=== PATIENT | male | born 1965 | race Caucasian/White ===

== ENCOUNTER 2017-12-06 14:27 | Emergency (ER) | payer BC ==
--- NOTE | 2017-12-06 14:58 | EDPHYS ---
Physician Documentation [facility] Name: Humphrey Dalton Age: 52 yrs Sex: Male : 1965 Arrival Date: 12/06/2017 Time: 14:29 Bed 12 Private MD: Uriel Rogers E ED Physician Zack Colón HPI: 12/06 14:57 This 52 yrs old Male presents to ER via Ambulatory with complaints of Low kb Back Pain. 14:57 The patient presents with pain that is acute. The symptoms are located in the lumbar kb spine. The pain does not radiate. The problem was sustained when bending over. Onset: The symptoms/episode began/occurred this morning. Modifying factors: The patient symptoms are alleviated by nothing, the patient symptoms are aggravated by any movement. Associated signs and symptoms: The patient has no apparent associated signs or symptoms. Severity of symptoms: At their worst the symptoms were mild, moderate, in the emergency department the symptoms are unchanged. The patient has not experienced similar symptoms in the past. The patient has not recently seen a physician. 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 - Social history:: Smoking status: . - Ebola Screening: : Patient negative for fever greater than or equal to 101.5 degrees Fahrenheit, and additional compatible Ebola Virus Disease symptoms Patient denies exposure to infectious person Patient denies travel to an Ebola-affected area in the 21 days before illness onset No symptoms or risks identified at this time. ROS: 14:57 Constitutional: Negative for fever, chills, and weight loss, Cardiovascular: Negative kb for chest pain, palpitations, and edema, Respiratory: Negative for shortness of breath, cough, wheezing, and pleuritic chest pain, Abdomen/GI: Negative for abdominal pain, nausea, vomiting, diarrhea, and constipation, : Negative for injury, bleeding, discharge, and swelling, MS/Extremity: Negative for injury and deformity, Skin: Negative for injury, rash, and discoloration, Neuro: Negative for headache, weakness, numbness, tingling, and seizure. 14:57 Back: Positive for pain at rest, pain with movement, of the lumbar area. Exam: 14:57 Constitutional: This is a well developed, well nourished patient who is awake, alert, kb and in no acute distress. Head/Face: Normocephalic, atraumatic. Chest/axilla: Normal chest wall appearance and motion. Nontender with no deformity. No lesions are appreciated. Cardiovascular: Regular rate and rhythm with a normal S1 and S2. No gallops, murmurs, or rubs. Normal PMI, no JVD. No pulse deficits. Respiratory: Lungs have equal breath sounds bilaterally, clear to auscultation and percussion. No rales, rhonchi or wheezes noted. No increased work of breathing, no retractions or nasal flaring. Abdomen/GI: Soft, non-tender, with normal bowel sounds. No distension or tympany. No guarding or rebound. No evidence of tenderness throughout. Back: No spinal tenderness. No costovertebral tenderness. Full range of motion. Skin: Warm, dry with normal turgor. Normal color with no rashes, no lesions, and no evidence of cellulitis. MS/ Extremity: Pulses equal, no cyanosis. Neurovascular intact. Full, normal range of motion. Neuro: Awake and alert, GCS 15, oriented to person, place, time, and situation. Cranial nerves II-XII grossly intact. Motor strength 5/5 in all extremities. Sensory grossly intact. Cerebellar exam normal. Normal gait. Vital Signs: 14:34 BP 153 / 100; Pulse 89; Resp 16; Temp 97.7; Pulse Ox 100% on R/A; Weight 83.91 kg (R); iw Height 6 ft. 0 in. (182.88 cm) (R); Pain 6/10; 14:34 Body Mass Index 25.09 (83.91 kg, 182.88 cm) iw MDM: 14:43 Patient medically screened. kb 14:56 Data reviewed: vital signs, nurses notes. Data interpreted: Pulse oximetry: on room air kb is 100 %. Interpretation: normal. Counseling: I had a detailed discussion with the patient and/or guardian regarding: the historical points, exam findings, and any diagnostic results supporting the discharge/admit diagnosis, the need for outpatient follow up, a family practitioner, to return to the emergency department if symptoms worsen or persist or if there are any questions or concerns that arise at home. Administered Medications: No medications were administered Disposition: 12/07 07:20 Co-signature as Attending Physician, Zack Colón MD I agree with the assessment and edmund plan of care. Disposition: 12/06/17 14:58 Discharged to Home. Impression: Low back pain. - Condition is Stable. - Discharge Instructions: Back Pain, Adult, [id number]. - Prescriptions for Diclofenac Sodium 75 mg Oral Tablet, Delayed Release (E.C.) - take 1 tablet by ORAL route 2 times per day As needed; 30 tablet. orphenadrine citrate 100 mg Oral Tablet Sustained Release - take 1 tablet by ORAL route 2 times per day As needed; 20 tablet. - Medication Reconciliation Form, Thank You Letter, Antibiotic Education, Prescription Opioid Use, Work release form form. - Follow up: Emergency Department; When: As needed; Reason: Worsening of condition. Follow up: Private Physician; When: 2 - 3 days; Reason: Recheck today's complaints, Continuance of care, Re-evaluation by your physician. Signatures: Klarissa Brady, BRIGHT AYALA-Ervin Almaraz RN RN sg Anderson, Corey, MD MD cha Williams, Irene, RN RN iw Corrections: (The following items were deleted from the chart) 12/06 15:11 14:58 12/06/2017 14:58 Discharged to Home. Impression: Low back pain. Condition is iw Stable. Forms are Medication Reconciliation Form, Thank You Letter, Antibiotic Education, Prescription Opioid Use. Follow up: Emergency Department; When: As needed; Reason: Worsening of condition. Follow up: Private Physician; When: 2 - 3 days; Reason: Recheck today's complaints, Continuance of care, Re-evaluation by your physician. kb
--- NOTE | 2017-12-06 14:58 | ER ---
Nurse's Notes [facility] Name: Humphrey Dalton Age: 52 yrs Sex: Male : 1965 Arrival Date: 12/06/2017 Time: 14:29 Bed 12 Private MD: Uriel Rogers E Diagnosis: Low back pain Presentation: 12/06 14:33 Presenting complaint: Patient states: was in a crouching position, when I stood up i iw felt a pinch in my back and something isnt right. hurts with walking and bending. Transition of care: patient was not received from another setting of care. Onset of symptoms was December 06, 2017. Risk Assessment: Do you want to hurt yourself or someone else? Patient reports no desire to harm self or others. Initial Sepsis Screen: Does the patient meet any 2 criteria? No. Patient's initial sepsis screen is negative. Does the patient have a suspected source of infection? No. Patient's initial sepsis screen is negative. Care prior to arrival: None. 14:33 Method Of Arrival: Ambulatory iw 14:33 Acuity: TATIANA 4 iw Triage Assessment: 15:01 General: Behavior is calm, cooperative. 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 - Social history:: Smoking status: . - Ebola Screening: : Patient negative for fever greater than or equal to 101.5 degrees Fahrenheit, and additional compatible Ebola Virus Disease symptoms Patient denies exposure to infectious person Patient denies travel to an Ebola-affected area in the 21 days before illness onset No symptoms or risks identified at this time. Screenin:01 Abuse screen: Denies threats or abuse. Denies injuries from another. Nutritional iw screening: No deficits noted. Tuberculosis screening: No symptoms or risk factors identified. Fall Risk None identified. Assessment: 14:57 General: Appears in no apparent distress. iw 15:00 Pain: Complains of pain in lumbar spine and lumbar area. Neuro: Level of Consciousness iw is awake, alert, obeys commands, Oriented to person, place, time, situation, Moves all extremities. Full function. Cardiovascular: Patient's skin is warm and dry. Respiratory: Respiratory effort is even, unlabored, Respiratory pattern is regular, symmetrical. Derm: Skin is intact, is healthy with good turgor. Musculoskeletal: Range of motion: intact in all extremities, Reports pain in lumbar spine and lumbar area. Vital Signs: 14:34 BP 153 / 100; Pulse 89; Resp 16; Temp 97.7; Pulse Ox 100% on R/A; Weight 83.91 kg (R); iw Height 6 ft. 0 in. (182.88 cm) (R); Pain 6/10; 14:34 Body Mass Index 25.09 (83.91 kg, 182.88 cm) iw ED Course: 14:29 Patient arrived in ED. sb2 14:29 Uriel Rogers MD is Private Physician. sb2 14:34 Triage completed. iw 14:34 Arm band placed on. iw 14:43 Klarissa Brady FNP-C is PHCP. kb 14:43 Zack Colón MD is Attending Physician. kb 14:47 Ledy Lucas, RN is Primary Nurse. iw 15:01 No provider procedures requiring assistance completed. iw 15:02 Patient has correct armband on for positive identification. iw 15:02 Patient did not have IV access during this emergency room visit. iw Administered Medications: No medications were administered Outcome: 14:58 Discharge ordered by MD. kb 15:01 Discharged to home iw 15:02 Condition: good iw 15:02 Discharge instructions given to patient, Instructed on discharge instructions, follow up and referral plans. medication usage, Demonstrated understanding of instructions, follow-up care, medications. 15:02 Prescriptions given X 2. iw 15:11 Patient left the ED. iw Signatures: Klarissa Brady FNP-C FNP-Ckb Gay, Steven, RN RN Ledy Lucas, RN RN Lianne Cruz sb2
== END 2017-12-06 15:11 | disposition home or self-care (01) ==
LOC: ER 14:27
DX: M54.5 Low back pain (principal); Z88.1 Allergy status to other antibiotic agents; Z88.6 Allergy status to analgesic agent
CPT/HCPCS: 99282

== ENCOUNTER 2017-12-29 03:34 | Emergency (ER) | payer BC ==
[2017-12-29] MEDS ORDERED: NA CHLORIDE 0.9% 1,000 ML ONE (04:14)
[2017-12-29 04:56] LABS: Absolute Monocytes 0.7 K/uL (0.1-1.3); Absolute Neutrophil 8.3 K/uL (1.8-8.0); Basophils % 0.2 % (0-1.3); Eosinophils % 4.9 % (0-4.4); Hematocrit 43.6 % (39.6-49.0); Lymphocytes % 9.9 % (15.3-44.8); MCH 30.7 pg (27.0-35.0); MCV 88.7 fL (80-100); MPV 8.2 fL (7.6-11.3); Monocytes % 6.8 % (3.3-12.3); RBC Red Blood Cell Count 4.92 M/uL (4.33-5.43)
[2017-12-29 05:38] LABS: BUN Blood Urea Nitrogen 12 mg/dL (7-18); Bicarbonate 25 mmol/L (21-32); Creatine Phosphokinase 125 U/L (39-308); Glucose Level 139 mg/dL (74-106); Magnesium 2.5 mg/dL (1.8-2.4); Potassium 3.5 mmol/L (3.5-5.1); Sodium Level 140 mmol/L (136-145); Troponin (Emerg Dept Use Only) < 0.02 ng/mL (0.0-0.045)
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
--- NOTE | 2017-12-29 05:53 | ER ---
Nurse's Notes [facility] Name: Humphrey Dalton Age: 52 yrs Sex: Male : 1965 Arrival Date: 12/29/2017 Time: 03:38 Bed 15 Private MD: Clyde Salcedo Diagnosis: Near Syncope Presentation: 12/29 03:50 Presenting complaint: Patient states: "I was at a friend's house and I got dizzy all of tl2 a sudden and felt like I was going to pass out but didn't. I was worried because I had a brain injury in 2016" Reports episode occurred at 0030. Transition of care: patient was not received from another setting of care. Onset of symptoms was December 29, 2017 at 00:30. Risk Assessment: Do you want to hurt yourself or someone else? Patient reports no desire to harm self or others. Initial Sepsis Screen: Does the patient meet any 2 criteria? No. Patient's initial sepsis screen is negative. Does the patient have a suspected source of infection? No. Patient's initial sepsis screen is negative. Care prior to arrival: None. 03:50 Method Of Arrival: Ambulatory tl2 03:50 Acuity: TATIANA 3 tl2 Triage Assessment: 03:52 General: Appears in no apparent distress. comfortable, Behavior is calm, cooperative, tl2 appropriate for age. Pain: Denies pain. Neuro: Level of Consciousness is awake, alert, obeys commands, Oriented to person, place, time, situation, Reports dizziness, weakness These symptoms have resolved. Initially occurred at 0030. Cardiovascular: Denies chest pain. Respiratory: Airway is patent Respiratory effort is even, unlabored, Respiratory pattern is regular, symmetrical. GI: No signs and/or symptoms were reported involving the gastrointestinal system. : No signs and/or symptoms were reported regarding the genitourinary system. Derm: Skin is pink, warm \\T\\ dry. 03:54 Neuro: Moves all extremities. Gait is steady, Speech is normal, Facial symmetry appears tl2 normal, Intact. Historical: - Allergies: 03:52 Amoxicillin; tl2 03:52 Hydrocodone-Acetaminophen; tl2 - Home Meds: 03:52 gabapentin oral oral [Active]; tl2 - PMHx: 03:52 ulnar pince nerve; TBI 2015; tl2 - Immunization history:: Adult Immunizations up to date. - Social history:: Smoking status: Patient/guardian denies using tobacco. - Ebola Screening: : No symptoms or risks identified at this time. - Family history:: not pertinent. - Hospitalizations: : No recent hospitalization is reported. Screenin:55 Abuse screen: Denies threats or abuse. Nutritional screening: No deficits noted. tl2 Tuberculosis screening: No symptoms or risk factors identified. Fall Risk None identified. Assessment: 03:52 General: see triage assessment. tl2 05:10 Reassessment: Patient appears in no apparent distress at this time. Patient and/or tl2 family updated on plan of care and expected duration. Pain level reassessed. Patient is alert, oriented x 3, equal unlabored respirations, skin warm/dry/pink. 06:41 Reassessment: Patient appears in no apparent distress at this time. Patient and/or tl2 family updated on plan of care and expected duration. Pain level reassessed. Patient is alert, oriented x 3, equal unlabored respirations, skin warm/dry/pink. pt verbalized understanding of discharge instructions, need for follow up Patient states feeling better. Vital Signs: 03:52 BP 132 / 85; Pulse 80; Resp 18; Temp 97.6(O); Pulse Ox 99% on R/A; Weight 83.91 kg; tl2 Height 6 ft. 0 in. (182.88 cm); Pain 0/10; 05:10 BP 102 / 72; Pulse 63; Resp 18; Pulse Ox 100% on R/A; tl2 06:41 BP 102 / 72; Pulse 67; Resp 18; Pulse Ox 100% on R/A; tl2 03:52 Body Mass Index 25.09 (83.91 kg, 182.88 cm) tl2 ED Course: 03:38 Patient arrived in ED. es 03:39 Clyde Salcedo MD is Private Physician. es 03:42 Matthew Velazquez MD is Attending Physician. rn 03:50 Lori Stapleton RN is Primary Nurse. tl2 03:51 Triage completed. tl2 03:52 Arm band placed on right wrist. tl2 03:55 Patient has correct armband on for positive identification. Bed in low position. Call tl2 light in reach. Side rails up X 1. Adult w/ patient. 04:06 Inserted saline lock: 20 gauge in right wrist, using aseptic technique. Blood collected.tl2 04:[address] via wheelchair. kw1 04:22 CT Head Brain wo Cont In Process Unspecified. EDMS 04:24 CT completed. Patient tolerated procedure well. Patient moved back from CT. kw1 05:52 Clyde Salcedo MD is Referral Physician. rn 06:41 No provider procedures requiring assistance completed. IV discontinued, intact, tl2 bleeding controlled, No redness/swelling at site. Pressure dressing applied. Administered Medications: 04:10 Drug: NS 0.9% 1000 ml Route: IV; Rate: 1000 ml; Site: right wrist; tl2 06:42 Follow up: IV Status: Completed infusion; IV Intake: 1000ml tl2 Intake: 06:42 IV: 1000ml; Total: 1000ml. tl2 Outcome: 05:52 Discharge ordered by . rn 06:41 Discharged to home ambulatory, with family. tl2 06:41 Condition: stable 06:41 Discharge instructions given to patient, Instructed on discharge instructions, follow up and referral plans. Demonstrated understanding of instructions, follow-up care. 06:42 Patient left the ED. tl2 Signatures: Dispatcher [employer] Dorys Barnhart Roman, MD MD rn Knox, Taylor, RN RN tl2 Dayana Zhao kw1
--- NOTE | 2017-12-29 08:37 | EKG ---
Test Date: 2017-12-29 Test Time: 04:07:15 Turf Keeper: LUCAS MEASUREMENT RESULTS: Intervals: Rate: 66 WI: 166 QRSD: 88 QT: 410 QTc: 429 [place]: P: 48 WI: 166 QRS: 33 T: 16 INTERPRETIVE STATEMENTS: Normal sinus rhythm RSR' or QR pattern in V1 suggests right ventricular conduction delay Borderline ECG Compared to ECG 11/19/2015 19:50:51 Myocardial infarct finding no longer present Electronically Signed On 12-29-17 08:36:41 CDT by Geovani Willis
--- NOTE | 2017-12-29 08:56 | RAD REPORT ---
EXAM DESCRIPTION: CT - Head Brain Wo Cont - 12/29/2017 6:57 am CLINICAL HISTORY: Syncope COMPARISON: October 2017 TECHNIQUE: Computed axial tomography of the head was obtained. IV contrast was not requested. A prel iminary report was generated by [employer] and reviewed prior to dictation All CT scans are performed using dose optimization technique as appropriate and may include automated exposure control or mA/KV adjustment according to patient size. FINDINGS: An intracranial bleed is not seen . The ventricles are normal in caliber. No extra-axial fluid collection is noted. Fluid within the sinuses/ mastoids is not seen. IMPRESSION: No acute intracranial abnormality is seen. If patient's symptoms persist MRI of the bra in would be recommended.
== END 2017-12-29 06:42 | disposition home or self-care (01) ==
LOC: ER 03:34
DX: R55 Syncope and collapse (principal); Z87.820 Personal history of traumatic brain injury; Z88.1 Allergy status to other antibiotic agents; Z88.5 Allergy status to narcotic agent
CPT/HCPCS: 36415; 70450; 80048; 82550; 83735; 84484; 85025; 93005; 96360; 96361; 99284; J7030

== ENCOUNTER 2020-06-08 18:45 | Emergency (ER) | payer BC ==
[2020-06-08 20:13] LABS: Absolute Lymphocytes (CBC) 1.4 K/uL (0.7-4.9); Basophils % 0.2 % (0-1.3); Hematocrit 44.7 % (39.6-49.0); Lymphocytes % 9.3 % (15.3-44.8); MPV 7.8 fL (7.6-11.3); RBC Red Blood Cell Count 5.11 M/uL (4.33-5.43)
[2020-06-08 20:17] LABS: Protime INR 0.97
[2020-06-08 20:28] LABS: ALT/SGPT 38 U/L (12-78); AST/SGOT 16 U/L (15-37); Albumin 4.1 g/dL (3.4-5.0); Alkaline Phosphatase 62 U/L (45-117); BUN Blood Urea Nitrogen 11 mg/dL (7-18); Bicarbonate 24 mmol/L (21-32); Bilirubin Direct < 0.1 mg/dL (0-0.2); Bilirubin Total 0.3 mg/dL (0.2-1.0); Glucose Level 93 mg/dL (74-106); Potassium 3.6 mmol/L (3.5-5.1); Sodium Level 138 mmol/L (136-145)
[2020-06-08 20:45] LABS: Barbiturates NEGATIVE (NEGATIVE); Benzodiazepines NEGATIVE (NEGATIVE); Cocaine NEGATIVE (NEGATIVE); METHAMPHETAM NEGATIVE (NEGATIVE); Methadone NEGATIVE (NEGATIVE); Opiates NEGATIVE (NEGATIVE); Phencyclidine NEGATIVE (NEGATIVE); THC Cannibis NEGATIVE (NEGATIVE)
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
--- NOTE | 2020-06-08 21:25 | RAD REPORT ---
EXAM DESCRIPTION: RAD - Humerus Right - 06/08/2020 9:06 pm CLINICAL HISTORY: trauma COMPARISON: No comparisons FINDINGS: No acute fracture or dislocation seen.
--- NOTE | 2020-06-08 21:25 | RAD REPORT ---
EXAM DESCRIPTION: RAD - Shoulder Right 2 View - 06/08/2020 9:06 pm CLINICAL HISTORY: trauma COMPARISON: No comparisons FINDINGS: No fracture or dislocation is seen.
[2020-06-08] MEDS ORDERED: NA CHLORIDE 0.9% 1,000 ML ONE (21:26)
[2020-06-08 22:01] LABS: Troponin (Emerg Dept Use Only) < 0.02 ng/mL (0.0-0.045)
[2020-06-08 22:05] LABS: Urine Blood 1+ (NEG); Urine Glucose NEGATIVE (NEG); Urine Protein 1+ (NEG); Urine Specific Gravity >1.030 (1.005-1.030)
--- NOTE | 2020-06-08 22:28 | EDPHYS ---
Physician Documentation [facility] Name: Humphrey Dalton Age: 55 yrs Sex: Male : 1965 Arrival Date: 06/08/2020 Time: 18:48 Bed 20 Private MD: ED Physician Garry Mendes HPI: 06/08 20:15 This 55 yrs old Male presents to ER via EMS with complaints of Seizure. mh7 20:15 The patient presents after having a single isolated seizure, that lasted 3 minute(s), mh7 the episode(s) was witnessed, by a bystander. Character of seizure(s): Loss of consciousness: it is not known if the patient experienced loss of consciousness, Motor activity: the motor activity is unknown, Incontinence: none, Apnea: it is not know whether or not the patient experienced apnea, Circulation: it is unknown whether or not the patient experienced a disturbance in pulse, Eye movements: are unknown. Seizure onset: today. Context: the seizure(s) was witnessed, by a bystander, occurred at a store, occurred while the patient was standing, Contributing factors: unknown. Seizure Hx: Original onset: unknown. Associated injury: Right upper extremity: right shoulder, pain. Current symptoms: confusion. Historical: - Allergies: 18:45 Amoxicillin; rb3 18:45 Hydrocodone-Acetaminophen; rb3 - Home Meds: 18:45 gabapentin Oral [Active]; rb3 - PMHx: 18:45 TBI 2016; ulnar pince nerve; Seizures; rb3 - Immunization history:: Adult Immunizations unknown. - Social history:: Smoking status: unknown. ROS: 20:15 Constitutional: Negative for fever, chills, and weight loss, ENT: Negative for injury, mh7 pain, and discharge, Neck: Negative for injury, pain, and swelling, Cardiovascular: Negative for chest pain, palpitations, and edema, Respiratory: Negative for shortness of breath, cough, wheezing, and pleuritic chest pain, Abdomen/GI: Negative for abdominal pain, nausea, vomiting, diarrhea, and constipation, Back: Negative for injury and pain, : Negative for injury, bleeding, discharge, and swelling, Psych: Negative for depression, anxiety, suicide ideation, homicidal ideation, and hallucinations, Allergy/Immunology: Negative for hives, rash, and allergies, Endocrine: Negative for neck swelling, polydipsia, polyuria, polyphagia, and marked weight changes, Hematologic/Lymphatic: Negative for swollen nodes, abnormal bleeding, and unusual bruising. Exam: 20:15 ENT: Nares patent. No nasal discharge, no septal abnormalities noted. Tympanic mh7 membranes are normal and external auditory canals are clear. Oropharynx with no redness, swelling, or masses, exudates, or evidence of obstruction, uvula midline. Mucous membranes moist. Neck: Trachea midline, no thyromegaly or masses palpated, and no cervical lymphadenopathy. Supple, full range of motion without nuchal rigidity, or vertebral point tenderness. No Meningismus. Chest/axilla: Normal chest wall appearance and motion. Nontender with no deformity. No lesions are appreciated. Cardiovascular: Regular rate and rhythm with a normal S1 and S2. No gallops, murmurs, or rubs. Normal PMI, no JVD. No pulse deficits. Respiratory: Lungs have equal breath sounds bilaterally, clear to auscultation and percussion. No rales, rhonchi or wheezes noted. No increased work of breathing, no retractions or nasal flaring. Abdomen/GI: Soft, non-tender, with normal bowel sounds. No distension or tympany. No guarding or rebound. No evidence of tenderness throughout. Back: No spinal tenderness. No costovertebral tenderness. Full range of motion. Skin: Warm, dry with normal turgor. Normal color with no rashes, no lesions, and no evidence of cellulitis. 20:15 Psych: Awake, alert, with orientation to person, place and time. Behavior, mood, and affect are within normal limits. 20:15 Constitutional: The patient appears in no acute distress, alert, awake, does not remember events of episode 20:15 Musculoskeletal/extremity: Extremities: noted in the right shoulder: decreased ROM, tenderness, ROM: limited active range of motion due to pain, in the right shoulder, limited passive range of motion due to pain, in the right shoulder, Circulation is intact in all extremities. Pulses: are normal with no appreciated deficits, Sensation intact. Compartment Syndrome exam of affected extremity: is normal. no numbness, no tingling, no sensation deficit, no palor, no weak pulses, Joints: the right shoulder displays painful range of motion, tenderness, Tendon exam: specific tendon testing normal through active and passive range of motion Vital Signs: 18:45 BP 126 / 77; Pulse 99; Resp 17; Temp 97.6; Pulse Ox 95% ; Weight 83.91 kg; Height 6 ft. rb3 1 in. (185.42 cm); 18:48 rb3 20:00 BP 136 / 84; Pulse 95; Resp 17; Temp 98; Pulse Ox 100% ; rr5 21:15 BP 115 / 65; Pulse 99; Resp 16; Pulse Ox 100% ; rr5 22:00 BP 118 / 65; Pulse 95; Resp 17; Pulse Ox 99% ; rr5 23:00 BP 123 / 80; Pulse 90; Resp 16; Pulse Ox 98% ; rr5 18:45 Body Mass Index 24.41 (83.91 kg, 185.42 cm) rb3 18:48 See vital sigins rb3 Thomas Coma Score: 18:45 Eye Response: spontaneous(4). Verbal Response: oriented(5). Motor Response: obeys rb3 commands(6). Total: 15. MDM: 22:25 Differential diagnosis: drug overdose, cardiac arrhythmia, seizure, Syncope. Data [facility] reviewed: vital signs, nurses notes, EMS record, old medical records, lab test result(s), cardiac enzymes, CBC, drug level(s), electrolytes, urinalysis, urine drug screen, EKG, radiologic studies, CT scan, plain films. Data interpreted: Pulse oximetry: on room air is 100 %. Interpretation: normal. Counseling: I had a detailed discussion with the patient and/or guardian regarding: the historical points, exam findings, and any diagnostic results supporting the discharge/admit diagnosis, lab results, radiology results, the need for outpatient follow up, a neurologist, to return to the emergency department if symptoms worsen or persist or if there are any questions or concerns that arise at home. Response to treatment: the patient's symptoms have resolved after treatment, the patient's blood pressure is in an acceptable range, mental status has returned to baseline, the patient no longer shows bradycardia, the patient is not short of breath, the patient is not tachycardic, the patient's pain is gone, the patient's temperature has normalized. 22:27 Patient medically screened. [facility] 23:18 Refusal of service: The patient/guardian displays adequate decision making capability [facility] and despite a detailed discussion of alternatives, benefits, risks, and consequences refuses: Medications. ED course: Well appearing, NAD, VSS, no focal neurological deficits. Awake, alert, and oriented x 3. No seizure activity in the ED. Discussed all test results and findings. He requested to be discharged from the ED. He will follow up with his doctor but will return to the ED if he has any concerns.. 06/08 19:34 Order name: Acetaminophen [facility] 06/08 19:34 Order name: Basic Metabolic Panel [facility] 06/08 19:34 Order name: CBC with Diff [facility] 06/08 19:34 Order name: ETOH Level [facility] 06/08 19:34 Order name: Hepatic Function; Complete Time: 22:04 [facility] 06/08 19:34 Order name: PT-INR; Complete Time: 21:37 [facility] 06/08 19:34 Order name: Ptt, Activated; Complete Time: 21:37 [facility] 06/08 19:34 Order name: Salicylate; Complete Time: 21:37 [facility] 06/08 19:34 Order name: Urine Drug Screen; Complete Time: 21:37 [facility] 06/08 19:35 Order name: Acetaminophen Level; Complete Time: 22:04 [facility] 06/08 19:35 Order name: Basic Metabolic Panel; Complete Time: 22:04 [facility] 06/08 19:35 Order name: CBC with Automated Diff; Complete Time: 21:37 [facility] 06/08 19:35 Order name: Alcohol Serum/Plasma; Complete Time: 21:37 [facility] 06/08 20:20 Order name: Urine Dipstick--Ancillary (enter results); Complete Time: 22:08 06/08 19:34 Order name: EKG; Complete Time: 19:35 [facility] 06/08 19:34 Order name: EKG - Nurse/Tech; Complete Time: 20:04 [facility] 06/08 19:34 Order name: IV Saline Lock; Complete Time: 20:04 [facility] 06/08 19:34 Order name: Labs collected and sent; Complete Time: 20:04 [facility] 06/08 19:34 Order name: Urine Dipstick-Ancillary (obtain specimen); Complete Time: 20:17 [facility] 06/08 19:34 Order name: CT Head C Spine; Complete Time: 21:37 [facility] 06/08 19:34 Order name: Shoulder Right (2 View) XRAY; Complete Time: 21:37 [facility] 06/08 19:34 Order name: Humerus Right XRAY; Complete Time: 21:37 [facility] 06/08 21:13 Order name: Troponin (emerg Dept Use Only) rr5 06/08 21:35 Order name: Troponin (Emerg Dept Use Only); Complete Time: 22:04 [facility] Administered Medications: 21:15 Drug: NS 0.9% 1000 ml Route: IV; Rate: 1 bolus; Site: left wrist; rr5 22:30 Follow up: Response: No adverse reaction; IV Status: Completed infusion; IV Intake: rr5 1000ml Disposition: 06/08/20 22:27 Discharged to Home. Impression: Seizure, Contusion-Right Shoulder, Head Contusion. - Condition is Stable. - Discharge Instructions: Contusion, [id number], Seizure, Adult, Mmgt-sb-Dffm, Facial or Scalp Contusion, [id number]-[id number]. - Medication Reconciliation Form, Thank You Letter, Antibiotic Education, Prescription Opioid Use form. - Follow up: Private Physician; When: 1 - 2 days; Reason: Worsening of condition, Recheck today's complaints, Continuance of care, Re-evaluation by your physician. Follow up: Carlitos Paige MD; When: 1 - 2 days; Reason: Worsening of condition, Recheck today's complaints. - Problem is an acute exacerbation. - Symptoms are resolved. Signatures: Dispatcher [employer] [facility] Oleg Caldwell RN RN rr5 Garry Mendes MD MD mh7 Erin Lowry, RN RN rb3 Corrections: (The following items were deleted from the chart) 21:34 21:14 Troponin (Emerg Dept Use Only) ordered. [facility] EDIN 22:28 22:27 06/08/2020 22:27 Discharged to Home. Impression: Seizure; Contusion-Right mh7 Shoulder. Condition is Stable. Forms are Medication Reconciliation Form, Thank You Letter, Antibiotic Education, Prescription Opioid Use. Follow up: Private Physician; When: 1 - 2 days; Reason: Worsening of condition, Recheck today's complaints, Continuance of care, Re-evaluation by your physician. Follow up: Carlitos Paige; When: 1 - 2 days; Reason: Worsening of condition, Recheck today's complaints. Problem is an acute exacerbation. Symptoms are resolved. 7 23:00 22:28 06/08/2020 22:27 Discharged to Home. Impression: Seizure; Contusion-Right rr5 Shoulder; Head Contusion. Condition is Stable. Discharge Instructions: Contusion, [id number]-[id number], Seizure, Adult, [id number]-[id number], Facial or Scalp Contusion, Hwgg-an-Jhpk. Forms are Medication Reconciliation Form, Thank You Letter, Antibiotic Education, Prescription Opioid Use. Follow up: Private Physician; When: 1 - 2 days; Reason: Worsening of condition, Recheck today's complaints, Continuance of care, Re-evaluation by your physician. Follow up: Carlitos Paige; When: 1 - 2 days; Reason: Worsening of condition, Recheck today's complaints. Problem is an acute exacerbation. Symptoms are resolved. mh7
--- NOTE | 2020-06-08 22:28 | ER ---
Nurse's Notes [facility] Name: Humphrey Dalton Age: 55 yrs Sex: Male : 1965 Arrival Date: 06/08/2020 Time: 18:48 Bed 20 Private MD: Diagnosis: Seizure;Contusion-Right Shoulder;Head Contusion Presentation: 06/08 18:48 Chief complaint: EMS states: Pt. is 55 yr. had a seizure that lasted for 2-3 minutes at [employer]. When EMS arrived on scene, the pt. was alert but was not able to respond at first. Has a hematoma on the right eye. Denies pain. NKA, no medications. Vital signs are stable. BS 89. Risk Assessment: Do you want to hurt yourself or someone else? Patient reports no desire to harm self or others. Onset of symptoms was June 08, 2020 at 18:20. 18:48 Method Of Arrival: EMS: [facility] rb3 18:48 Acuity: TATIANA 3 rb3 19:30 Coronavirus screen: Client denies travel out of the [place] in the last 14 days. At this rr5 time, the client does not indicate any symptoms associated with coronavirus-19. Ebola Screen: Patient negative for fever greater than or equal to 101.5 degrees Fahrenheit, and additional compatible Ebola Virus Disease symptoms Patient denies exposure to infectious person. Patient denies travel to an Ebola-affected area in the 21 days before illness onset. Initial Sepsis Screen: Does the patient meet any 2 criteria? HR > 90 bpm. Does the patient have a suspected source of infection? No. Patient's initial sepsis screen is negative. Triage Assessment: 18:48 General: Appears in no apparent distress. Behavior is calm, cooperative. Pain: rb3 Complains of pain in right shoulder. Neuro: Level of Consciousness is awake, alert, obeys commands, Oriented to person, place, time, situation. Cardiovascular: Patient's skin is warm and dry. Respiratory: Airway is patent Respiratory effort is even, unlabored, Respiratory pattern is regular, symmetrical. Derm: Bruising that is dark purple, on right eye. 18:48 Musculoskeletal: Reports pain in right shoulder Has difficulty raising his right hand rb3 due to the right shoulder pain. Historical: - Allergies: 18:45 Amoxicillin; rb3 18:45 Hydrocodone-Acetaminophen; rb3 - Home Meds: 18:45 gabapentin Oral [Active]; rb3 - PMHx: 18:45 TBI 2016; ulnar pince nerve; Seizures; rb3 - Immunization history:: Adult Immunizations unknown. - Social history:: Smoking status: unknown. Screenin:17 Abuse screen: Denies threats or abuse. Denies injuries from another. Nutritional rr5 screening: No deficits noted. Tuberculosis screening: No symptoms or risk factors identified. Fall Risk Secondary diagnosis (15 points) seizures, IV access (20 points). Total Munoz Fall Scale indicates High Risk Score (45 or more points). Fall prevention measures have been instituted. Side Rails Up X 2 Placed Close to Nursing Station Frequent Obs/Assessments Occuring As available patient and family educated on Fall Prevention Program and Strategies. Assessment: 20:00 General: Appears in no apparent distress. comfortable, Behavior is calm, cooperative, rr5 appropriate for age. 20:00 Pain: Complains of pain in right shoulder. Neuro: Level of Consciousness is awake, rr5 alert, obeys commands, Oriented to person, place, time. Cardiovascular: Capillary refill < 3 seconds Patient's skin is warm and dry. Respiratory: Airway is patent Respiratory effort is even, unlabored, Respiratory pattern is regular, symmetrical. GI: No signs and/or symptoms were reported involving the gastrointestinal system. : No signs and/or symptoms were reported regarding the genitourinary system. EENT: No signs and/or symptoms were reported regarding the EENT system. Derm: Skin temperature is warm Wound noted forehead Wound is abrasion bruise Reports pain right shoulder. Musculoskeletal: Capillary refill < 3 seconds, Range of motion: limited in right shoulder. 21:15 Reassessment: Patient appears in no apparent distress at this time. Patient is alert, rr5 oriented x 3, equal unlabored respirations, skin warm/dry/pink. xray staff reported patient is diaphoretic and after the xray procedure. send back to room, reassess by the provider V/S taken and recorded, additional laboratory exam sent. 21:35 Reassessment: Patient appears in no apparent distress at this time. Patient is alert, rr5 oriented x 3, equal unlabored respirations, skin warm/dry/pink. Patient states symptoms have improved. 22:20 Reassessment: Patient appears in no apparent distress at this time. Patient and/or rr5 family updated on plan of care and expected duration. Pain level reassessed. Patient is alert, oriented x 3, equal unlabored respirations, skin warm/dry/pink. 23:00 Reassessment: Patient appears in no apparent distress at this time. Patient is alert, rr5 oriented x 3, equal unlabored respirations, skin warm/dry/pink. discharge instruction given and explained without complaints made. Vital Signs: 18:45 BP 126 / 77; Pulse 99; Resp 17; Temp 97.6; Pulse Ox 95% ; Weight 83.91 kg; Height 6 ft. rb3 1 in. (185.42 cm); 18:48 rb3 20:00 BP 136 / 84; Pulse 95; Resp 17; Temp 98; Pulse Ox 100% ; rr5 21:15 BP 115 / 65; Pulse 99; Resp 16; Pulse Ox 100% ; rr5 22:00 BP 118 / 65; Pulse 95; Resp 17; Pulse Ox 99% ; rr5 23:00 BP 123 / 80; Pulse 90; Resp 16; Pulse Ox 98% ; rr5 18:45 Body Mass Index 24.41 (83.91 kg, 185.42 cm) rb3 18:48 See vital sigins rb3 Thomas Coma Score: 18:45 Eye Response: spontaneous(4). Verbal Response: oriented(5). Motor Response: obeys rb3 commands(6). Total: 15. ED Course: 18:45 Arm band placed on right wrist. rb3 18:48 Patient arrived in ED. rb3 18:55 Triage completed. rb3 19:02 Garry Mendes MD is Attending Physician. mh7 19:30 Patient has correct armband on for positive identification. Placed in gown. Bed in low rr5 position. Call light in reach. Side rails up X2. solar installer on. Pulse ox on. NIBP on. 19:30 Initial lab(s) drawn, by me, sent to lab. Maintain EMS IV. Dressing intact. Good blood rr5 return noted. Site clean \T\ dry. Gauge \T\ site: G20 left AC. 19:46 Oleg Caldwell RN is Primary Nurse. rr5 20:00 Seizure precautions initiated. rr5 20:05 EKG done, by ED staff, reviewed by Garry Mendes MD. rr5 20:17 Urine collected: clean catch specimen, clear. rr5 20:33 CT Head C Spine In Process Unspecified. EDMS 21:06 Shoulder Right (2 View) XRAY In Process Unspecified. EDMS 21:06 Humerus Right XRAY In Process Unspecified. EDMS 22:26 Carlitos Paige MD is Referral Physician. [facility] 23:00 No provider procedures requiring assistance completed. IV discontinued, intact, rr5 bleeding controlled, No redness/swelling at site. Pressure dressing applied. Administered Medications: 21:15 Drug: NS 0.9% 1000 ml Route: IV; Rate: 1 bolus; Site: left wrist; rr5 22:30 Follow up: Response: No adverse reaction; IV Status: Completed infusion; IV Intake: rr5 1000ml Intake: 22:30 IV: 1000ml; Total: 1000ml. rr5 Outcome: 22:27 Discharge ordered by . [facility] 22:59 Discharged to home via wheelchair. rr5 22:59 Condition: stable 22:59 Discharge instructions given to patient, Instructed on discharge instructions, follow up and referral plans. Demonstrated understanding of instructions, follow-up care. 23:00 Patient left the ED. rr5 Signatures: Dispatcher [employer] Oleg Park RN RN rr5 Garry Mendes MD MD 7 Erin Lowry, RN RN rb3
[2020-06-08 23:06] VITALS: TEMP 98; O2SAT 100
[2020-06-08 23:07] VITALS: BP 115/65
== END 2020-06-08 23:00 | disposition home or self-care (01) ==
LOC: ER 18:45
DX: S40.011A Contusion of right shoulder, initial encounter (principal); S00.93XA Contusion of unspecified part of head, initial encounter; Z87.820 Personal history of traumatic brain injury; Z88.1 Allergy status to other antibiotic agents; Z88.5 Allergy status to narcotic agent
CPT/HCPCS: 93005; 85025; 80048; 36415; 80320; 80329 ×2; 85610; 80076; 80307 ×8; 85730; 81003; 84484; 70450; 72125; 73060; 73030; 96360; 99284; J7030

== ENCOUNTER 2022-02-23 13:53 | Emergency (ER) | payer BC, OTHER ==
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
[2022-02-23 15:36] VITALS: BP 157/103; TEMP 98.7; O2SAT 100
== END 2022-02-23 14:50 | disposition home or self-care (01) ==
LOC: ER 13:53
DX: Z04.1 Encounter for examination and observation following transport accident (principal); V49.40XA Driver injured in collision with unspecified motor vehicles in traffic accident, initial encounter
CPT/HCPCS: 99283

== ENCOUNTER 2022-06-02 16:24 | Emergency (ER) | payer SELFPAY ==
--- OUTSIDE RECORDS SUMMARY | 2022-06-02 16:28 | XMS REPORT | Continuity of Care Document ---
:1965 Author Organization [facility] t Address [address] [place] [address] [place] [id number] Care Team Providers Name Role Phone PCP, PATIENT DOES NOT HAVE A Primary Care Physician Unavaila ble Deepa Dubois DO Attending Clinician DEEPA DUBOIS Attending Clinician Unavailable Payers Payer Name Policy Type Policy Number Effective Date Expiration Date [facility] [id number] 2015 [employer] 00:00:00 Problems Condition Condition Condition [...] Uni vers one ty to See comments 5-31 ity of adverse 00:00: [place] reaction 00 [...] Source Exposure to 2021-08-25 2021-09-04 Not sure [facility] SARS-CoV-2 (event) 00:00:00 13:41:00 Medica l Branch Sex Assigned At [birth year] [facility] 00:00:00 00:00:00 Medical Branch Smoking Status Start Date Stop Date Source Never smoker [facility] Medical Branch Medications Ordered Filled Start Stop [...] Immunizations Ordered Filled Immunization Date Status Comments [facility] e Immunization Name Name Td 2016-03-[address] [facility] 00:00:00 [facility] Vital Signs Vital Name Observation Time Observation Value Comments Source Systolic blood 2021-09-04 18:44:00 120 mm[Hg] Univer sity of pressure [facility] Diastolic blood 2021-09-04 18:44:00 85 mm[Hg] Unive rsity of [facility] Heart rate 2021-09-04 18:44:00 107 /min [facility] Body temperature 2021-09-04 18:44:00 37.22 Giovanna [facility] Res[facility] rate 2021-09-04 18:44:00 18 /min [facility] Body height 2021-09-04 18:44:00 185.4 cm [facility] Body weight 2021-09-04 18:44:00 88.451 kg [facility] BMI 2021-09-04 18:44:00 25.73 kg/m2 [facility] Oxygen saturation in 2021-09-04 18:44:00 97 /min [facility] Arterial blood by [facility] Pulse oximetry Branch Procedures Procedure Date / Time Performed Performing Clinician Al jack COVID-19 (ID NOW 2021-09-04 19:11:00 Deepa Dubois [facility] RAPID TESTING) [facility] NOTICE OF PRIVACY 2021-09-04 18:37:37 Doctor Unassigned, No [facility] PRACTICES Name [facility] CONSENT/REFUSAL FOR 2021-09-04 18:37:09 Doctor Unassigned, No [facility] DIAGNOSIS AND Name [facility] TREATMENT Encounters Start End Encounter Admission Attending Care Care Encounter Source Date/Time Date/Time Type Type Clinicians Facility Department ID 2021-09-04 2021-09-04 Emergency DENIS Dubois [id number] [facility] 13:48:00 14:44:00 Deepa ALCARAZ [id number] [facility] [id number] [facility] [id number] [facility] 084 Branch 2021-09-04 2021-09-04 Emergency X DENIS DUBOIS ERT [id number] [facility] 13:48:00 14:44:00 DEEPA singh [facility] Results This patient has no known results.
[2022-06-02] MEDS ORDERED: KETOROLAC 30 MG/ML INJ ONE (17:02)
--- NOTE | 2022-06-02 17:20 | RAD REPORT ---
EXAM DESCRIPTION: RAD - Knee Right 3 View - 06/02/2022 5:03 pm CLINICAL HISTORY: Right knee pain FINDINGS: No fracture or dislocation is seen. Moderate osteoarthritis medial compartment consisting of osteophytes and joint space narrowing
--- NOTE | 2022-06-02 17:28 | EDPHYS ---
Physician Documentation [facility] Name: Humphrey Dalton Age: 57 yrs Sex: Male : 1965 Arrival Date: 06/02/2022 Time: 16:29 Bed 9 Private MD: ED Physician Behzad Watson HPI: 06/02 16:52 This 57 yrs old Male presents to ER via Ambulatory with complaints of Leg bs3 Pain, Foot Pain. 16:52 57-year-old male history of TBI, seizure disorder, arthritis presents with right knee bs3 pain he notes pain for approximately 2 weeks it is worse after standing on his feet all day he denies any pain when ambulating he notes that it is worse with position changes he denies any numbness tingling or weakness he has tried aspirin without significant relief no redness no swelling or warmth he notes that it is his right knee but also his left knee his pain worsened today after a trip and fall landing on his right knee and shoulder. He notes that he has follow-up with an orthopedist below until July due to insurance issues no fevers or chills no IV drug use. Historical: - Allergies: 16:36 Amoxicillin; hb 16:36 hydrocodone; hb - Home Meds: 16:36 gabapentin Oral [Active]; hb - PMHx: 16:36 TBI 2015; Seizures; ulnar pince nerve; hb - Immunization history:: Adult Immunizations up to date. - Social history:: Smoking status: Patient denies any tobacco usage or history of. ROS: 16:52 Constitutional: Negative for fever, chills bs3 16:52 All other systems are negative. Exam: 16:52 Constitutional: This is a well developed, well nourished patient who is awake, alert, bs3 and in no acute distress. Head/Face: Normocephalic, atraumatic. ENT: mmm, no posterior phyarngeal erythema Neck: Trachea midline, no thyromegaly, no neck stiffness Chest/axilla: Normal chest wall appearance and motion. Nontender with no deformity. No lesions are appreciated. Cardiovascular: Regular rate and rhythm with a normal S1 and S2. symmetric pulses in upper extremities Respiratory: Lungs have equal breath sounds bilaterally, clear to auscultation, no respiratory distress Skin: Warm, dry with normal turgor. Normal color with no rashes, no lesions, and no evidence of cellulitis. MS/ Extremity: Pulses equal, no cyanosis. Neurovascular intact. Full, normal range of motion. He has pain with range of motion of his right and left knee but it is greater with his right knee there is no significant swelling or warmth bilaterally he has no swelling of his right calf or thigh he has no calf tenderness he has normal dorsalis pedis pulses bilaterally Neuro: Awake and alert, GCS 15, oriented to person, place, time, and situation. Cranial nerves II-XII grossly intact. Motor strength 5/5 in all extremities. Sensory grossly intact. Psych: Awake, alert, with orientation to person, place and time. Behavior, mood, and affect are within normal limits. Vital Signs: 16:34 BP 145 / 95; Pulse 85; Resp 16; Temp 98.3; Pulse Ox 100% on R/A; Weight 88.45 kg; hb Height 6 ft. 1 in. ; Pain 9/10; 16:34 Body Mass Index 25.73 (88.45 kg, 185.42 cm) hb 16:34 Pain Scale: Adult hb MDM: 16:31 Patient medically screened. bs3 16:52 Data reviewed: vital signs, nurses notes. Care significantly affected by the following bs3 Social Determinants of Health: Poor access to healthcare and/or lack of insurance. ED course: Patient with likely musculoskeletal pain I considered deep vein thrombosis however his history and physical are not consistent with this I considered leg ischemia however he has no claudication symptoms and excellent pulses in addition his feet are warm and well-perfused given his recent fall will rule out fracture although he is ambulating here we will switch from aspirin to an NSAID advise follow-up with orthopedics. 17:14 Independent interpretation of the following test(s) in the Emergency Department X-Ray: bs3 My interpretation is No fracture or dislocation as interpreted by myself. 17:27 ED course: pt feeling better, xr consistent with osteoarthritis, advised ortho f/u, bs3 return prec. 06/02 16:51 Order name: Knee Right 3 View XRAY; Complete Time: 17:25 bs3 Administered Medications: 17:05 Drug: Ketorolac IM 30 mg Route: IM; Site: right vastus lateralis; ph 17:24 Follow up: Response: No adverse reaction ph Disposition Summary: 06/02/22 17:28 Discharge Ordered Location: Home bs3 Problem: an acute exacerbation bs3 Symptoms: have improved bs3 Condition: Stable bs3 Diagnosis - Pain in right knee bs3 Followup: bs3 - With: Ervin Ortega MD - When: 1 week - Reason: Re-evaluation by your physician Discharge Instructions: - Discharge Summary Sheet bs3 - Arthritis, [id number] bs3 - Acute Knee Pain, Adult, [id number] bs3 Forms: - Medication Reconciliation Form bs3 - Thank You Letter bs3 - Antibiotic Education bs3 - Prescription Opioid Use bs3 Prescriptions: - meloxicam 7.5 mg Oral tablet - take 1 tablet by ORAL route daily for 21 days take with food; 21 tablet; bs3 Refills: 0, Product Selection Permitted Signatures: Dispatcher [employer] Bushra Gurrola, RN RN Faith Lam RN RN Behzad Bradford MD MD bs3 Corrections: (The following items were deleted from the chart) 16:36 16:36 Allergies: Hydrocodone-Acetaminophen; hb
--- NOTE | 2022-06-02 17:28 | ER ---
Nurse's Notes [facility] Name: Humphrey Dalton Age: 57 yrs Sex: Male : 1965 Arrival Date: 06/02/2022 Time: 16:29 Bed 9 Private MD: Diagnosis: Pain in right knee Presentation: 06/02 16:34 Chief complaint: Worsening right knee pain x 2 weeks. Denies injury. Coronavirus hb screen: At this time, the client does not indicate any symptoms associated with coronavirus-19. Ebola Screen: No symptoms or risks identified at this time. Initial Sepsis Screen: Does the patient meet any 2 criteria? No. Patient's initial sepsis screen is negative. Does the patient have a suspected source of infection? No. Patient's initial sepsis screen is negative. Risk Assessment: Do you want to hurt yourself or someone else? Patient reports no desire to harm self or others. Onset of symptoms was May 20, 2022. 16:34 Method Of Arrival: Ambulatory hb 16:34 Acuity: TATIANA 4 hb Historical: - Allergies: 16:36 Amoxicillin; hb 16:36 hydrocodone; hb - Home Meds: 16:36 gabapentin Oral [Active]; hb - PMHx: 16:36 TBI 2016; Seizures; ulnar pince nerve; hb - Immunization history:: Adult Immunizations up to date. - Social history:: Smoking status: Patient denies any tobacco usage or history of. Screenin:08 [facility] ED Fall Risk Assessment (Adult) History of falling in the last 3 months, ph including since admission No falls in past 3 months (0 pts) Confusion or Disorientation No (0 pts) Intoxicated or Sedated No (0 pts) Impaired Gait No (0 pts) Mobility Assist Device Used No (0 pt) Altered Elimination No (0 pt) Score/Fall Risk Level 0 - 2 = Low Risk Oriented to surroundings, Maintained a safe environment, Hourly rounding (assess needs \T\ fall precautionary measures) done. Abuse screen: Denies threats or abuse. Denies injuries from another. Nutritional screening: No deficits noted. Tuberculosis screening: No symptoms or risk factors identified. Assessment: 17:07 General: Appears in no apparent distress. comfortable, Behavior is calm, cooperative, ph appropriate for age. Pain: Complains of pain in right knee. Neuro: Level of Consciousness is awake, alert, obeys commands, Oriented to person, place, time, situation. Cardiovascular: Capillary refill < 3 seconds in bilateral fingers Patient's skin is warm and dry. Respiratory: Airway is patent Respiratory effort is even, unlabored, Respiratory pattern is regular, symmetrical. Derm: Skin is healthy with good turgor, Skin is pink, warm \T\ dry. Musculoskeletal: Circulation, motion, and sensation intact. Range of motion: intact in all extremities, Swelling absent. Vital Signs: 16:34 BP 145 / 95; Pulse 85; Resp 16; Temp 98.3; Pulse Ox 100% on R/A; Weight 88.45 kg; hb Height 6 ft. 1 in. ; Pain 9/10; 16:34 Body Mass Index 25.73 (88.45 kg, 185.42 cm) hb 16:34 Pain Scale: Adult hb ED Course: 16:29 Patient arrived in ED. rg4 16:32 Behzad Watson MD is Attending Physician. bs3 16:36 Triage completed. hb 16:37 Arm band placed on. hb 16:56 Bushra Alaniz, RN is Primary Nurse. ph 17:05 Knee Right 3 View XRAY In Process Unspecified. EDMS 17:09 Patient has correct armband on for positive identification. Placed in gown. Bed in low ph position. Call light in reach. 17:09 No provider procedures requiring assistance completed. Patient did not have IV access ph during this emergency room visit. 17:28 Ervin Ortega MD is Referral Physician. bs3 Administered Medications: 17:05 Drug: Ketorolac IM 30 mg Route: IM; Site: right vastus lateralis; ph 17:24 Follow up: Response: No adverse reaction ph Medication: 17:09 VIS not applicable for this client. ph Outcome: 17:28 Discharge ordered by . bs3 Signatures: Dispatcher [employer] EDSD Bushra Alaniz RN RN ph Faith Lam RN RN Ani Greer rg4 Behzad Watson MD MD bs3 Corrections: (The following items were deleted from the chart) 16:36 16:36 Allergies: Hydrocodone-Acetaminophen; hb hb 16:37 16:34 BP 156 / 101; Pulse 85bpm; Resp 16bpm; Pulse Ox 100% RA; Temp 98.3F; 88.45 kg; hb Height 6 ft. 1 in.; BMI: 25.7; Pain 9/10, Adult; hb
[2022-06-02 21:44] VITALS: BP 132/78; TEMP 97.6; O2SAT 99
== END 2022-06-02 17:44 | disposition home or self-care (01) ==
LOC: ER 16:24
DX: M25.561 Pain in right knee (principal); Z88.1 Allergy status to other antibiotic agents; Z88.5 Allergy status to narcotic agent
CPT/HCPCS: 96372; 99283

== ENCOUNTER 2023-03-17 14:31 | Observation (INO) | payer BC, SELFPAY ==
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
--- NOTE | 2023-03-17 15:39 | RAD REPORT ---
EXAM DESCRIPTION: RAD - Chest Single View - 03/17/2023 3:29 pm CLINICAL HISTORY: CHEST PAIN Chest pain. COMPARISON: Chest Single View dated 11/19/2015; Chest Pa And Lat (2 Views) dated 11/18/2015 FINDINGS: Portable technique limits examination quality. The lungs are grossly clear. The heart is normal in size. No displaced fractures. IMPRESSION: No acute intrathoracic process suspected.
[2023-03-17 15:44] LABS: Hematocrit 44.8 % (39.6-49.0); Lymphocytes % 28.2 % (15.3-44.8); MCV 87.4 fL (80-100); MPV 7.3 fL (7.6-11.3); Platelets 287 thou/uL (152-406); RBC Red Blood Cell Count 5.13 M/uL (4.33-5.43)
[2023-03-17] MEDS ORDERED: ASPIRIN 81 MG CHEWABLE TABLET ONE (15:46)
[2023-03-17 16:03] LABS: ALT/SGPT 46 U/L (16-61); AST/SGOT 19 U/L (15-37); Albumin 3.9 g/dL (3.4-5.0); Alkaline Phosphatase 71 U/L (45-117); BUN Blood Urea Nitrogen 13 mg/dL (7-18); Bicarbonate 26 mEq/L (21-32); Bilirubin Total 0.3 mg/dL (0.2-1.0); Glomerular Filtration Rate 69 ml/min (=/>90); Glucose Level 171 mg/dL (74-106); Magnesium 2.3 mg/dL (1.6-2.4); NT PRO-BNP 42 pg/mL (<125); Potassium 3.9 mEq/L (3.5-5.1); Protein, Total 7.9 g/dL (6.4-8.2); Sodium Level 137 mEq/L (136-145); Troponin High Sensitivity 11.2 pg/mL (<58.9)
[2023-03-17 16:05] LABS: Protime INR 1.07
[2023-03-17 16:09] LABS: Bilirubin Direct < 0.1 mg/dL (0-0.2); Bilirubin Indirect, Calculated ND mg/dL (0.2-0.8)
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
--- NOTE | 2023-03-17 16:56 | P.HP ---
Certification for Inpatient Patient admitted to: Observation With expected LOS: >2 Midnights Patient will require the following post-hospital care: None Practitioner: I am a practitioner with admitting privileges, knowledge of patient current condition, hospital course, and medical plan of care. Services: Services provided to patient in accordance with Admission requirements found in Title 42 Section 412.3 of the Code of Federal Regulations Patient History Date of Service: 03/17/23 Reason for admission: Unstable angina History of Present Illness: Humphrey Dalton is a 58 year old male with Pmhx Seizures; TBI 2016; ulnar pinch nerve; Hypercholesterolemia; who presents to the ED with c/o Antierior chest wall chest pain associated with shortness of breath. He states his last episode of chest pain was 6 months ago, at that time chest pain was located left axillary. He made attempts to make an appointment with Dr. Paulson's office but had insurance difficulty and decided come to the ED instead for a further evaluation. He has a positive family history of heart disease. While in the ED heart score 3, in no acute distress, chest pain intermittent, no increased work of breathing, chest pain is nonreproducible. Laboratory evaluation troponin 11.2, BNP 42, serum glucose 171, all other labs unremarkable. Initial vitals: BP 137 / 100; Pulse 98; Resp 18 S; Temp 98; Pulse Ox 98% on R/A Ekg Rate is 96 beats/min. Rhythm is regular, Normal Sinus Rhythm. QRS [place] is Normal. [place] interval is normal at 164 msec. QRS interval is normal at 86 msec. QT interval is normal at 354 msec. No Q waves. T waves are Normal. No ST changes noted. Normal ECG and No evidence of ischemia. Chest Xray: The lungs are grossly clear. The heart is normal in size. No displaced fractures. Humphrey Dalton will be admitted to hospitalist service for further evaluation and treatment of chest pain rule out ACS, Dr. Paulson consulted. Allergies amoxicillin Allergy (Verified 12/20/14 13:34) swelling, cold sweats venom-honey bee [bee venom (honey bee)] Allergy (Verified 12/20/14 13:34) Shortness of breath Hydrocodone-Acetam Allergy (Mild, Uncoded 11/21/15 13:57) Unknown Home Medications: Meloxicam [Mobic] 15 mg PO DAILY 12/20/14 Review of Systems Respiratory: Shortness of Breath Cardiovascular: Chest Pain Physical Examination - Physical Exam General: Alert, In no apparent distress, Oriented x3 HEENT: Atraumatic, Normocephalic, PERRLA Neck: Supple, 2+ carotid pulse no bruit, JVD not distended Respiratory: Clear to auscultation bilaterally, Normal air movement Cardiovascular: No edema, Normal pulses, Regular rate/rhythm, Normal S1 S2 Capillary refill: <2 Seconds Gastrointestinal: Normal bowel sounds, Soft and benign Musculoskeletal: No clubbing, No swelling, No contractures Integumentary: No rashes, No breakdown, No significant lesion, No tenderness/swelling Neurological: Normal speech, Normal strength at 5/5 x4 extr, Normal tone - Studies Laboratory Data (last 24 hrs) 03/17/23 03/17/23 03/17/23 15:54 15:33 15:33 WBC 7.10 Hgb 16.0 Hct 44.8 Plt Count 287 PT 11.8 INR 1.07 Sodium 137 Potassium 3.9 BUN 13 Creatinine 1.21 Glucose 171 H Magnesium 2.3 Total Bilirubin 0.3 AST 19 ALT 46 Alkaline Phosphatase 71 Assessment and Plan - Plan Assessment and plan Chest pain rule out ACS Hypertensive disorder EKG Rate is 96 beats/min. Rhythm is regular, Normal Sinus Rhythm. QRS [place] is Normal. interval is normal at 164 msec. QRS interval is normal at 86 msec. QT interval is normal at 354 msec. No Q waves. T waves are Normal. No ST changes noted. Normal ECG and No evidence of ischemia Troponin 11.2, serial pending BNP 42 TSH/free T4, A1c pending Aspirin, statin daily Nitroglycerin SL as needed Echo ordered Dr. Paulson consulted Lopressor IV as needed for SBP>170 Hyperglycemia Serum glucose 171 Monitor in a.m. labs A1c pending History of seizure TBI (2016) History of HLD Continue home medications Supportive care DVT ppx lovenox Full code LOS 2 days Discharge Plan: Home Plan to discharge in: 48 Hours - Advance Directives Does patient have a Living Will: No Does patient have a Durable POA for Healthcare: No Time Spent Managing Pts Care (In Minutes): 55
[2023-03-17 17:18] LABS: SARS-COV-2 RT PCR NEGATIVE (NEGATIVE)
[2023-03-17] MEDS ORDERED: ACETAMINOPHEN 325 MG TABLET PO PRN (17:46)
[2023-03-17] MEDS ORDERED: NITROGLYCERIN 0.4 MG/TAB SL PRN (17:46)
[2023-03-17] MEDS ORDERED: ACETAMINOPHEN 500 MG TAB PO PRN (17:46)
[2023-03-17] MEDS ORDERED: METOPROLOL TARTRATE 5 MG/5 ML INJ IV PRN (17:56)
[2023-03-17 19:55] LABS: Thyroid Stimulating Hormone 2.85 uIU/mL (0.358-3.740)
[2023-03-17] MEDS ORDERED: ATORVASTATIN 40 MG TAB PO SCH (21:00)
[2023-03-17 22:28] VITALS: BMI 26.8
[2023-03-18 07:30] LABS: Absolute Lymphocytes (CBC) 2.3 K/uL (0.7-4.9); Hematocrit 44.8 % (39.6-49.0); MCV 87.7 fL (80-100); MPV 7.5 fL (7.6-11.3); Platelets 272 thou/uL (152-406); RBC Red Blood Cell Count 5.11 M/uL (4.33-5.43)
[2023-03-18 07:34] LABS: Magnesium 2.5 mg/dL (1.6-2.4); Phosphorus 3.5 mg/dL (2.5-4.9); Potassium 4.6 mEq/L (3.5-5.1)
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
--- NOTE | 2023-03-18 08:11 | P.PN ---
Date of Service: 03/18/23 Subjective: ROS: 10 point ROS as noted above, otherwise negative Physical Exam General: Alert, In no apparent distress, Oriented x3 HEENT: Atraumatic, Normocephalic, PERRLA Neck: Supple, 2+ carotid pulse no bruit, JVD not distended Respiratory: Clear to auscultation bilaterally, Normal air movement Cardiovascular: No edema, Normal pulses, Regular rate/rhythm, Normal S1 S2 Capillary refill: <2 Seconds Gastrointestinal: Normal bowel sounds, Soft and benign Musculoskeletal: No clubbing, No swelling, No contractures Integumentary: No rashes, No breakdown, No significant lesion, No tenderness/swelling Neurological: Normal speech, Normal strength at 5/5 x4 extr, Normal tone Vitals reviewed Problem list: Chest pain rule out ACS Hypertensive disorder Hyperglycemia History of seizure Assessment and plan Chest pain rule out ACS Hypertensive disorder EKG Rate is 96 beats/min. Rhythm is regular, Normal Sinus Rhythm. QRS [place] is Normal. interval is normal at 164 msec. QRS interval is normal at 86 msec. QT interval is normal at 354 msec. No Q waves. T waves are Normal. No ST changes noted. Normal ECG and No evidence of ischemia Troponin 11.2/11.9/12.0/13.2 BNP 42 TSH/free T4 2.850/0.87 Triglycerides 144, cholesterol 184, LDL 102, HDL 53, cholesterol 3.47 A1c pending Aspirin, statin daily Nitroglycerin SL as needed Echo ordered Dr. Paulson consulted Lopressor IV as needed for SBP>170 Hyperglycemia Serum glucose 171, 103 Monitor in a.m. labs A1c 5.4 History of seizure TBI (2015) History of HLD Continue home medications Supportive care DVT ppx lovenox Full code LOS 2 days Discharge Plan: Home Plan to discharge in: 48 Hours Time Spent Managing Pts Care (In Minutes): 35
[2023-03-18] MEDS ORDERED: ASPIRIN EC 81 MG TAB PO SCH (09:00)
--- NOTE | 2023-03-18 11:58 | RAD REPORT ---
EXAM DESCRIPTION: CT - Chest For Pe Angio - 03/18/2023 10:49 am CLINICAL HISTORY: Chest pain, SOB COMPARISON: Chest Single View dated 03/17/2023 TECHNIQUE: Thin axial CT images of the chest were obtained following administration of 100 mL Isovue 370 IV contrast. Multiplanar reconstructions, and maximum intensity projection reconstructions were generated and reviewed. Exam utilizes a protocol for optimal evaluation of pulmonary arterial tree. All CT scans are performed using dose optimization technique as appropriate and may include automated exposure control or mA/KV adjustment according to patient size. FINDINGS: Pulmonary arteries are normal. No emboli or other suspicious finding. Mild ectasia of the ascending thoracic aorta, 4.1 cm. No other acute or significant aorta findings. No mass or infiltrate in the lung parenchyma. No pleural thickening or pleural effusion. No pneumotho rax. No abnormal mediastinal or hilar masses or lymphadenopathy seen. No chest wall mass or abnormal axill iary lymphadenopathy. Diffuse hepatic parenchymal hypoattenuation suggesting steatosis. IMPRESSION: No evidence of acute central pulmonary emboli. Mild ectasia of the ascending thoracic aorta measuring 4.1 cm in caliber. No acute abnormalities in the lungs. Diffuse hepatic steatosis.
--- NOTE | 2023-03-18 13:21 | EKG ---
Test Date: 2023-03-17 Test Time: 15:59:06 Broke Beater Operator: ALTA MEASUREMENT RESULTS: Intervals: Rate: 84 IN: 164 QRSD: 94 QT: 366 QTc: 432 [place]: P: 55 IN: 164 QRS: -19 T: 42 INTERPRETIVE STATEMENTS: Normal sinus rhythm Low voltage QRS Borderline ECG Compared to ECG 03/17/2023 14:40:21 No significant changes Electronically Signed On 03-18-23 13:18:51 LABELING MACHINE OPERATOR by Dominic Paulson
--- NOTE | 2023-03-18 13:22 | EKG ---
Test Date: 2023-03-17 Test Time: 14:40:21 Director Skills: AMBREEN MEASUREMENT RESULTS: Intervals: Rate: 96 MO: 164 QRSD: 86 QT: 354 QTc: 447 [place]: P: 72 MO: 164 QRS: -14 T: 50 INTERPRETIVE STATEMENTS: Normal sinus rhythm Low voltage QRS Borderline ECG Compared to ECG 06/08/2020 19:01:24 Low QRS voltage now present Atrial abnormality no longer present Incomplete right bundle-branch block no longer present Electronically Signed On 03-18-23 13:19:36 SIGNS SALES REPRESENTATIVE by Dominic Paulson
[2023-03-18 13:23] VITALS: TEMP 98.1
--- NOTE | 2023-03-18 14:04 | ECHO ---
HEIGHT: 6 ft 0 in WEIGHT: 198 lb 0 oz DATE OF STUDY: 03/18/[address]: Beatriz Rockwell NP 2-DIMENSIONAL: YES M.MODE: YES DOPPLER: YES COLOR FLOW: YES TDS: PORTABLE: YES DEFINITY: BUBBLE STUDY: DIAGNOSIS: SHORTNESS OF BREATH, CHEST PAIN FOR ONE WEEK, PAROCYSAL NOCTURNAL DYSPNEA CARDIAC HISTORY: CATHERIZATION: NO SURGERY: NO PROSTHETIC VALVE: NO PACEMAKER: NO MEASUREMENTS (cm) DIASTOLIC (NORMALS) SYSTOLIC (NORMALS) IVSd 1.1 (0.6-1.2) LA Diam 2.3 (1.9-4.0) LVEF 62% LVIDd 4.1 (3.5-5.7) LVIDs 2.7 (2.0-3.5) %FS 33% LVPWd 1.1 (0.6-1.2) Ao Diam 3.0 (2.0-3.7) 2 DIMENSIONAL ASSESSMENT: RIGHT ATRIUM: NORMAL LEFT ATRIUM: NORMAL RIGHT VENTRICLE: NORMAL LEFT VENTRICLE: NORMAL TRICUSPID VALVE: NORMAL MITRAL VALVE: NORMAL PULMONIC VALVE: NORMAL AORTIC VALVE: NORMAL PERICARDIAL EFFUSION: NONE AORTIC ROOT: NORMAL LEFT VENTRICULAR WALL MOTION: NORMAL DOPPLER/COLOR FLOW: SEE BELOW COMMENTS: 1. NORMAL LEFT VENTRICULAR EJECTION FRACTION 60-65% 2. NORMAL WALL MOTION 3. POOR WINDOWS TECHNOLOGIST: DIANA DUBOIS
[2023-03-18] MEDS ORDERED: NA CHLORIDE 0.9% 500 ML ONE (14:58)
[2023-03-18] MEDS ORDERED: HEPA 1000U/500MLS 2,000 UNIT/1,000 ML BAG IV ONE (15:11)
[2023-03-18] MEDS ORDERED: VERAPAMIL HCL 10 MG/4 ML VIAL IV ONE (15:12)
[2023-03-18] MEDS ORDERED: FENTANYL CITR 100 MCG/2 ML ONE (15:12)
[2023-03-18] MEDS ORDERED: LIDOCAINE 1% 20 ML MDV ONE (15:12)
[2023-03-18] MEDS ORDERED: HEPARIN 5000 UNIT/ML 1 ML VIAL ONE (15:13)
[2023-03-18] MEDS ORDERED: MIDAZOLAM HCL 2 MG/2 ML INJ ONE (15:13)
[2023-03-18] MEDS ORDERED: CLOPIDOGREL 75 MG TABLET ONE (15:14)
[2023-03-18] MEDS ORDERED: HEPARIN 10,000 UNIT/10 ML VIAL IV ONE (15:14)
[2023-03-18] MEDS ORDERED: TICAGRELOR 90 MG TABLET PO ONE (15:14)
[2023-03-18] MEDS ORDERED: ASPIRIN 325 MG TAB ONE (15:15)
--- NOTE | 2023-03-18 17:09 | P.DS ---
Admission Date: 03/17/23 Discharge Date: 03/19/23 Disposition: ROUTINE DISCHARGE Discharge Condition: GOOD Reason for Admission: Unstable angina Brief History of Present Illness: Diagnosis Chest pain rule out ACS Hypertensive disorder Hyperglycemia History of seizure TBI (2016) History of HLD Humphrey Dalton is a 58 year old male with Pmhx Seizures; TBI 2016; ulnar pinch nerve; Hypercholesterolemia; who presents to the ED with c/o Antierior chest wall chest pain associated with shortness of breath. He states his last episode of chest pain was 6 months ago, at that time chest pain was located left axillary. He made attempts to make an appointment with Dr. Paulson's office but had insurance difficulty and decided come to the ED instead for a further evaluation. He has a positive family history of heart disease. While in the ED heart score 3, in no acute distress, chest pain intermittent, no increased work of breathing, chest pain is nonreproducible. Laboratory evaluation troponin 11.2, BNP 42, serum glucose 171, all other labs unremarkable. Initial vitals: BP 137 / 100; Pulse 98; Resp 18 S; Temp 98; Pulse Ox 98% on R/A Ekg Rate is 96 beats/min. Rhythm is regular, Normal Sinus Rhythm. QRS [place] is Normal. DC interval is normal at 164 msec. QRS interval is normal at 86 msec. QT interval is normal at 354 msec. No Q waves. T waves are Normal. No ST changes noted. Normal ECG and No evidence of ischemia. Chest Xray: The lungs are grossly clear. The heart is normal in size. No displaced fractures. Humphrey Dalton will be admitted to hospitalist service for further evaluation and treatment of chest pain rule out ACS, Dr. Paulson consulted. Physical Exam General: Alert, In no apparent distress, Oriented x3 HEENT: Atraumatic, Normocephalic, PERRLA Neck: Supple, 2+ carotid pulse no bruit, JVD not distended Respiratory: Clear to auscultation bilaterally, Normal air movement Cardiovascular: No edema, Normal pulses, Regular rate/rhythm, Normal S1 S2 Capillary refill: <2 Seconds Gastrointestinal: Normal bowel sounds, Soft and benign Musculoskeletal: No clubbing, No swelling, No contractures Integumentary: No rashes, No breakdown, No significant lesion, No tenderness/swelling Neurological: Normal speech, Normal strength at 5/5 x4 extr, Normal tone Hospital Course: Chest pain rule out ACS Hypertensive disorder-stable EKG Rate is 96 beats/min. Rhythm is regular, Normal Sinus Rhythm. QRS [place] is Normal. interval is normal at 164 msec. QRS interval is normal at 86 msec. QT interval is normal at 354 msec. No Q waves. T waves are Normal. No ST changes noted. Normal ECG and No evidence of ischemia Troponin 11.2, serial pending BNP 42 TSH/free T4, A1c pending Aspirin, statin daily Nitroglycerin SL as needed Echo cancelled by Dr. Lorene Paulson consulted- [facility] Findings: 1. Left main; large and normal. 2. LAD; large and normal, normal diagonal branches. 3. Ramus intermedius; normal, moderate size. 4. Left circumflex; large and normal. 5. RCA; large and dominant, normal. 6. Normal LVEDP at 5 mmHg. Conclusion: 1. Normal coronary Lopressor IV as needed for SBP>170 Blood pressure stabilized Hyperglycemia Serum glucose 171 Monitor in a.m. labs A1c pending History of seizure TBI (2015) History of HLD Continue home medications Supportive care Vital Signs/Physical Exam: Temp Pulse Resp BP Pulse Ox 98.1 F 79 16 120/77 96 03/18/23 12:00 03/18/23 17:05 03/18/23 17:05 03/18/23 17:05 03/18/23 12:00 Laboratory Data at Discharge: WBC 6.90 thou/uL (4.3-10.9) 03/18/23 07:01 Hgb 15.6 g/dL (13.6-17.9) 03/18/23 07:01 Hct 44.8 % (39.6-49.0) 03/18/23 07:01 Plt Count 272 thou/uL (152-406) 03/18/23 07:01 PT 11.8 SECONDS (9.5-12.5) 03/17/23 15:54 INR 1.07 03/17/23 15:54 Sodium 137 mEq/L (136-145) 03/18/23 07:01 Potassium 4.6 mEq/L (3.5-5.1) D 03/18/23 07:01 BUN 14 mg/dL (7-18) 03/18/23 07:01 Creatinine 1.12 mg/dL (0.70-1.30) 03/18/23 07:01 Glucose 103 mg/dL (74-106) 03/18/23 07:01 Phosphorus 3.5 mg/dL (2.5-4.9) 03/18/23 07:01 Magnesium 2.5 mg/dL (1.6-2.4) H 03/18/23 07:01 Total Bilirubin 0.3 mg/dL (0.2-1.0) 03/17/23 15:33 AST 19 U/L (15-37) 03/17/23 15:33 ALT 46 U/L (16-61) 03/17/23 15:33 Alkaline Phosphatase 71 U/L (45-117) 03/17/23 15:33 Triglycerides 144 mg/dL (<150) 03/18/23 07:01 Cholesterol 184 mg/dL (<200) 03/18/23 07:01 HDL Cholesterol 53 mg/dL (40-60) 03/18/23 07:01 Cholesterol/HDL Ratio 3.47 03/18/23 07:01 Home Medications: Meloxicam [Mobic] 7.5 mg PO BID 12/20/14 Aspirin 81 mg PO DAILY 03/18/23 Atorvastatin Calcium [Lipitor*] 10 mg PO BEDTIME 03/18/23 methocarbamoL [Methocarbamol] 750 mg PO TID PRN 03/18/23 Physician Discharge Instructions: 1. Please call and schedule a follow-up appointment with your PCP in 3-5 days - Please follow-up with your PCP for medication refills/adjustments 2. Please call and schedule a follow-up appointment with Dr Paulson for outpatient stress test in one week, Dr. Paulson will follow-up with ascending thoracic aorta enlargement. 3. Continue heart healthy diet 4. No restrictions 5. Continue home medications 6. No new medications this admission Echocardiogram result 1. NORMAL LEFT VENTRICULAR EJECTION FRACTION 60-65% 2. NORMAL WALL MOTION 3. POOR WINDOWS CTA chest results No evidence of acute central pulmonary emboli. Mild ectasia of the ascending thoracic aorta measuring 4.1 cm in caliber. No acute abnormalities in the lungs. Diffuse hepatic steatosis. Diet: AHA Activity: Ad alee Followup: [facility] [Primary Care Provider] - Dominic Paulson MD [ACTIVE - CAN ADMIT] -
[2023-03-18 17:29] VITALS: BP 130/78; O2SAT 96
--- NOTE | 2023-03-18 23:37 | OP ---
Date of Procedure: 03/18/2023 Surgeon: WINSTON PARK Procedures Performed: 1.Selective coronary angiogram. 2.Left heart catheterization. Indication: Unstable angina. Access: Right radial artery 6-Slovenian closed with TR band. Complications: None. Bleeding: Less than 20 mL. Anesthesia: Total sedation time was 30 minutes. Description Of Procedure: After risks, benefits, and alternatives were explained, the patient agreed to procedure and signed informed consent. The patient was brought into the cardiac catheterization laboratory, prepped and draped in usual sterile fashion. Then, I accessed right radial artery using pediatric micropuncture kit, placed a 6-Slovenian [place] sheath, took a 5-Slovenian [place] 4.0 catheter ov er J-wire into the aortic root, engaged left main, took standard views and then in the RCA took stand pati views and then over the wire. The catheter was pushed in the LV, measured LVEDP. Pullback not r ecorded any gradient and removed the catheter and the sheath, placed TR band with good hemostasis. Findings: 1.Left main; large and normal. 2.LAD; large and normal, normal diagonal branches. 3.Ramus intermedius; normal, moderate size. 4.Left circumflex; large and normal. 5.RCA; large and dominant, normal. 6.Normal LVEDP at 5 mmHg. Conclusion: 1.Normal coronary arteries. 2.Normal LVEDP. Recommendations: Search for other causes of chest pain. SR/MODL Voice ID: [id number] Report ID: [id number]
== END 2023-03-18 18:41 | disposition home or self-care (01) ==
LOC: ER 14:31 → ERHOLD 17:46 → 2ND 19:43
PROVIDERS: ADMIT Internal Medicine; ATTEND Internal Medicine
PROC: 4A023N7 Measurement of Cardiac Sampling and Pressure, Left Heart, Percutaneous Approach (ICD-10-PCS; principal; 2023-03-18)
PROC: B2111ZZ Fluoroscopy of Multiple Coronary Arteries using Low Osmolar Contrast (ICD-10-PCS; 2023-03-18)
DX: I20.0 Unstable angina (principal); I10 Essential (primary) hypertension; I77.810 Thoracic aortic ectasia; R73.9 Hyperglycemia, unspecified; E78.5 Hyperlipidemia, unspecified; R56.9 Unspecified convulsions; K76.0 Fatty (change of) liver, not elsewhere classified; Z79.82 Long term (current) use of aspirin; Z79.899 Other long term (current) drug therapy; Z88.0 Allergy status to penicillin; Z88.5 Allergy status to narcotic agent; Z91.030 Bee allergy status; Z87.820 Personal history of traumatic brain injury; Z11.52 Encounter for screening for COVID-19; Z82.49 Family history of ischemic heart disease and other diseases of the circulatory system
CPT/HCPCS: 93005 ×2; 93306; 85025 ×2; 80048 ×2; 36415 ×2; 83735 ×2; 84100; 85610; 80061; 80076; 84443; 83036; 84484 ×4; 84439; 83880; 0240U; 71275; 71045; 93458; 76937; 99285; Q9967; C1893; Q9966; J1644; J2001; J2250; J3010; G0378 ×5; J7040; 99152; 99153

== ENCOUNTER → 2023-04-11 | Emergency (ER) | payer BC ==
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
--- NOTE | 2023-04-11 10:39 | RAD REPORT ---
EXAM DESCRIPTION: RAD - Chest Single View - 04/11/2023 10:04 am CLINICAL HISTORY: Foreign Body COMPARISON: Chest Single View dated 03/17/2023; Chest Single View dated 11/19/2015; Chest Pa And Lat (2 Views) dated 11/18/2015 FINDINGS: Lines: None. Lungs: No evidence of edema or pneumonia. Pleural: No significant pleural effusions or pneumothorax. Cardiac: The heart size is within normal limits. Mediastinum: Within normal limits. Bones: No acute fractures. Other: None IMPRESSION: No acute cardiopulmonary disease.
--- NOTE | 2023-04-11 10:40 | RAD REPORT ---
EXAM DESCRIPTION: RAD - Neck Soft Tissue - 04/11/2023 10:04 am CLINICAL HISTORY: fb eval COMPARISON: Head C Spine Mpr Wo Con dated 06/08/2020 FINDINGS/IMPRESSION: No prevertebral soft tissue swelling. No radiopaque foreign body. No acute osse ous abnormality
--- NOTE | 2023-04-11 11:32 | RAD REPORT ---
EXAM DESCRIPTION: CT - Soft Tissue Neck Wo Contr CLINICAL HISTORY: FORIEGN BODY COMPARISON: Head C Spine Mpr Wo Con dated 06/08/[address] scans are performed using dose optimization technique as appropriate and may includ e automated exposure control or mA/KV adjustment according to patient size. FINDINGS: Nasopharyngeal tissues are normal in appearance. Fossa Rosenmller are normal. Parapharyngeal fat triangles are symmetric. Tongue base structures are normal. Epiglottis and aryepiglottic folds are normal. Piriform sinuses are well aerated. The vocal cords are normal in appearance. Salivary glands are normal in appearance. Upper lung navarrete are clear. Included intracranial contents are unremarkable. Spurring anteriorly at the C6-7 level. Trace anterolisthesis of C4 on C5 probably due to underlying d egenerative changes. IMPRESSION: No acute soft tissue abnormality. No foreign body identified.
--- NOTE | 2023-04-11 11:36 | ER ---
Nurse's Notes [facility] Name: Humphrey Dalton Age: 58 yrs Sex: Male : 1965 Arrival Date: 04/11/2023 Time: 08:32 Bed 14 Private MD: Diagnosis: Foreign body in esophagus-resolved Presentation: 04/11 08:53 Chief complaint: Piece of steak caught in throat last night, c/o persistent cough and hb intermittent nose bleed. Coronavirus screen: At this time, the client does not indicate any symptoms associated with coronavirus-19. Ebola Screen: No symptoms or risks identified at this time. Initial Sepsis Screen: Does the patient meet any 2 criteria? No. Patient's initial sepsis screen is negative. Does the patient have a suspected source of infection? No. Patient's initial sepsis screen is negative. Risk Assessment: Do you want to hurt yourself or someone else? Patient reports no desire to harm self or others. Onset of symptoms was April 10, 2023. 08:53 Method Of Arrival: Ambulatory hb 08:53 Acuity: TATIANA 3 hb Historical: - Allergies: 08:55 Amoxicillin; hb 08:55 HYDROCODONE; hb 08:55 Oxycodone HCl; hb - PMHx: 08:55 Hypercholesterolemia; Seizures; TBI 2015; ulnar pince nerve; hb - Immunization history:: Adult Immunizations up to date, Client reports having NOT received the Covid vaccine. Flu vaccine is not up to date. - Social history:: Smoking status: Patient denies any tobacco usage or history of. Screenin:09 [facility] ED Fall Risk Assessment (Adult) History of falling in the last 3 months, ko1 including since admission No falls in past 3 months (0 pts) Confusion or Disorientation No (0 pts) Intoxicated or Sedated No (0 pts) Impaired Gait No (0 pts) Mobility Assist Device Used No (0 pt) Altered Elimination No (0 pt) Score/Fall Risk Level 0 - 2 = Low Risk Oriented to surroundings, Maintained a safe environment, Educated pt \T\ family on fall prevention, incl call for assistance when getting out of bed, Assessed \T\ reinforced patient's understanding of fall precautions, Provided non-skid footwear, Hourly rounding (assess needs \T\ fall precautionary measures) done, Used ambulatory aids as needed (educated on \T\ assisted with), Used gait belt as appropriate. Abuse screen: Denies threats or abuse. Denies injuries from another. Nutritional screening: No deficits noted. Tuberculosis screening: No symptoms or risk factors identified. Assessment: 09:09 General: Appears uncomfortable, Behavior is cooperative, appropriate for age. Pain: ko1 Complains of pain in throat. EENT:. Vital Signs: 08:53 BP 138 / 86; Pulse 72; Resp 16; Temp 98.1; Pulse Ox 100% on R/A; Weight 83.46 kg; hb Height 6 ft. 1 in. ; Pain 6/10; 10:52 BP 112 / 82; Pulse 68; Resp 16; Pulse Ox 98% ; ko1 08:53 Body Mass Index 24.28 (83.46 kg, 185.42 cm) hb 08:53 Pain Scale: Adult hb ED Course: 08:37 Patient arrived in ED. mg5 08:53 Nguyen Montemayor, RN is Primary Nurse. ko1 08:55 Triage completed. hb 08:55 Arm band placed on. hb 08:58 Kaye Vega PA-C is PHCP. sb4 08:58 Matthew Velazquez MD is Attending Physician. sb4 09:09 Patient has correct armband on for positive identification. Bed in low position. Call ko1 light in reach. Side rails up X2. Client placed on continuous cardiac and pulse oximetry monitoring. NIBP monitoring applied. teletypesetter monitor on. Door closed. Noise minimized. Lights dimmed. Warm blanket given. 10:05 Chest Single View XRAY In Process Unspecified. EDMS 10:06 Neck Soft Tissue XRAY In Process Unspecified. EDMS 11:14 Soft Tissue Neck Wo Contr In Process Unspecified. EDMS 11:35 Levon Lloyd MD is Referral Physician. sb4 11:42 Provided Education on: Follow-up process and procedures. . cm10 11:42 No provider procedures requiring assistance completed. Patient did not have IV access cm10 during this emergency room visit. Administered Medications: No medications were administered Medication: 11:42 VIS not applicable for this client. cm10 Outcome: 11:36 Discharge ordered by . sb4 11:42 Discharged to home ambulatory, cm10 11:42 Condition: good 11:42 Discharge instructions given to patient, Instructed on discharge instructions, follow up and referral plans. Demonstrated understanding of instructions, follow-up care, 11:42 Patient left the ED. cm10 Signatures: Dispatcher [employer] EDFaith Quintana RN RN Nguyen Solorzano RN RN Kaye oLmeli PA-C PA-C sb4 Caroline Stout RN RN cm10 Florinda Becerra mg5
--- NOTE | 2023-04-11 11:36 | EDPHYS ---
Physician Documentation [facility] Name: Humphrey Dalton Age: 58 yrs Sex: Male : 1965 Arrival Date: 04/11/2023 Time: 08:32 Bed 14 Private MD: ED Physician Matthew Velazquez HPI: 04/11 09:11 This 58 yrs old Male presents to ER via Ambulatory with complaints of Foreign Body In sb4 Throat. 09:11 The patient or guardian reports the patient has a suspected foreign body, of the sb4 throat, that has been ingested. The reported likely foreign body is steak. Onset: The symptoms/episode began/occurred last night. Current symptoms: coughing, foreign body sensation. Treatment Prior to Arrival: tried to vomit. The patient has experienced a previous episode, approximately 2 years ago. The patient has not recently seen a physician. ate steak last night, piece did not go down all the way. has been coughing all night, can take small sips of water. was not able to sleep because he was scared he would choke. said this happened in 2020 and had to have it extracted via EGD and subsequent esophageal dilation. states he has not had any issues since. Historical: - Allergies: 08:55 Amoxicillin; hb 08:55 HYDROCODONE; hb 08:55 Oxycodone HCl; hb - PMHx: 08:55 Hypercholesterolemia; Seizures; TBI 2016; ulnar pince nerve; hb - Immunization history:: Adult Immunizations up to date, Client reports having NOT received the Covid vaccine. Flu vaccine is not up to date. - Social history:: Smoking status: Patient denies any tobacco usage or history of. ROS: 09:11 Constitutional: Negative for fever, chills, and weight loss, sb4 09:11 ENT: Positive for foreign body sensation, 09:11 Respiratory: Positive for cough, 09:11 All other systems are negative, Exam: 09:11 Constitutional: This is a well developed, well nourished patient who is awake, alert, sb4 and in no acute distress. Head/Face: Normocephalic, atraumatic. Eyes: Extra-ocular motions intact. Periorbital areas with no swelling, redness, or edema. ENT: Mucous membranes moist. Cardiovascular: Regular rate and rhythm with a normal S1 and S2. Respiratory: Lungs have equal breath sounds bilaterally, clear to auscultation and percussion. No rales, rhonchi or wheezes noted. No increased work of breathing, no retractions or nasal flaring. Abdomen/GI: Soft, non-tender, no distension. Skin: Warm, dry with normal turgor. Normal color with no rashes, no lesions, and no evidence of cellulitis. MS/ Extremity: Pulses equal, no cyanosis. Neurovascular intact. Full, normal range of motion. Neuro: Awake and alert, GCS 15, oriented to person, place, time, and situation. Motor strength 5/5 in all extremities. Sensory grossly intact. Vital Signs: 08:53 BP 138 / 86; Pulse 72; Resp 16; Temp 98.1; Pulse Ox 100% on R/A; Weight 83.46 kg; hb Height 6 ft. 1 in. ; Pain 6/10; 10:52 BP 112 / 82; Pulse 68; Resp 16; Pulse Ox 98% ; ko1 08:53 Body Mass Index 24.28 (83.46 kg, 185.42 cm) hb 08:53 Pain Scale: Adult hb MDM: 08:58 Patient medically screened. sb4 11:35 Data reviewed: vital signs, nurses notes, radiologic studies, and as a result, I will sb4 discharge patient. 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 11:40 ED course: drinking gingerale allowed food bolus to pass. patient feels better. sb4 tolerating PO appropriately. no infiltrate on CXR. no foreign body on xray or CT. 04/11 08:55 Order name: Chest Single View XRAY; Complete Time: 10:46 hb 04/11 09:10 Order name: Neck Soft Tissue XRAY; Complete Time: 10:46 sb4 04/11 11:08 Order name: Soft Tissue Neck Wo Contr; Complete Time: 11:33 EDMS Administered Medications: No medications were administered Disposition: 13:27 Co-signature as Attending Physician, Matthew Velazquez MD I reviewed the patient's care rn provided by the Advanced Practice Provider and agree with the diagnosis and treatment plan. Disposition Summary: 04/11/23 11:36 Discharge Ordered Notes: Location: Home sb4 Problem: new sb4 Symptoms: are resolved sb4 Condition: Stable sb4 Diagnosis - Foreign body in esophagus - resolved sb4 Followup: sb4 - With: Levon Lloyd MD - When: As needed - Reason: Recheck today's complaints, Re-evaluation by your physician Discharge Instructions: - Discharge Summary Sheet sb4 - Swallowed Foreign Body, Adult, [id number] sb4 Forms: - Work release form sb4 - Medication Reconciliation Form sb4 - Thank You Letter sb4 - Antibiotic Education sb4 - Prescription Opioid Use sb4 - Patient Portal Instructions sb4 - Leadership Thank You Letter sb4 Signatures: Dispatcher [employer] Matthew Oneil MD MD rn Baxter, Heather, RN RN hb Brown, Sophia, PA-C PAAxel sb4 Corrections: (The following items were deleted from the chart) 11:08 10:55 Soft Tissue Neck W/Contr+CT.RAD.BRZ ordered. YUMIKO CALDERON
[2023-04-11 12:31] VITALS: BP 112/82; TEMP 98.1; O2SAT 98
== END ==
LOC: ER 08:32
DX: T18.128A Food in esophagus causing other injury, initial encounter (principal); R05.9 Cough, unspecified; Z87.820 Personal history of traumatic brain injury; Z28.310 Unvaccinated for COVID-19; Z88.1 Allergy status to other antibiotic agents; Z88.5 Allergy status to narcotic agent
CPT/HCPCS: 70360; 70490; 71045; 99284

== ENCOUNTER → 2023-04-22 | Emergency (ER) | payer BC ==
[~2023-04-22] MED LIST: GLUCAGON 1 MG/VIAL ONE; ONDANSETRON 4 MG/2 ML VIAL ONE
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
--- NOTE | 2023-04-22 23:22 | ER ---
Nurse's Notes [facility] Name: Humphrey Dalton Age: 58 yrs Sex: Male : 1965 Arrival Date: 04/22/2023 Time: 21:36 Bed 8 Private MD: Diagnosis: Foreign body in esophagus Presentation: 04/22 21:43 Chief complaint: Patient states: piece of hot dog got stuck while eating dinner. jaquelin lg3 tried joelle bruce at home but its not working. Coronavirus screen: Client denies travel out of the [place] in the last 14 days. At this time, the client does not indicate any symptoms associated with coronavirus-19. Ebola Screen: No symptoms or risks identified at this time. Initial Sepsis Screen: Does the patient meet any 2 criteria? No. Patient's initial sepsis screen is negative. Does the patient have a suspected source of infection? No. Patient's initial sepsis screen is negative. Risk Assessment: Do you want to hurt yourself or someone else? Patient reports no desire to harm self or others. Onset of symptoms was April 22, 2023. 21:43 Method Of Arrival: Ambulatory lg3 21:43 Acuity: TATIANA 3 lg3 Triage Assessment: 21:46 General: Appears in no apparent distress. comfortable, Behavior is calm, cooperative. lg3 Pain: Complains of pain in throat. EENT: Reports difficulty swallowing. Neuro: No deficits noted. Buck Agitation-Sedation Scale (RASS): 0 - Alert and Calm Level of Consciousness is awake, alert, obeys commands, Oriented to person, place, time, situation. Cardiovascular: No deficits noted. Denies chest pain, shortness of breath, Capillary refill < 3 seconds Clubbing of nail beds is absent JVD is absent Patient's skin is warm and dry. Respiratory: No deficits noted. Respiratory effort is even, unlabored, Respiratory pattern is regular, symmetrical. GI: Pt is actively vomiting clear fluid, Reports intolerance of fluids, intolerance of food. : No deficits noted. No signs and/or symptoms were reported regarding the genitourinary system. Derm: No deficits noted. No signs and/or symptoms reported regarding the dermatologic system. Skin is intact, is healthy with good turgor, Skin is dry, Skin is normal, Skin temperature is warm. Musculoskeletal: No deficits noted. No signs and/or symptoms reported regarding the musculoskeletal system. Circulation, motion, and sensation intact. Range of motion: intact in all extremities. Historical: - Allergies: 21:46 Amoxicillin; lg3 21:46 HYDROCODONE; lg3 21:46 Oxycodone HCl; lg3 - Home Meds: 21:46 meloxicam oral [Active]; aspirin 81 mg Oral capsule [Active]; gabapentin Oral [Active]; lg3 Methocarbamol Oral [Active]; - PMHx: 21:46 Hypercholesterolemia; Seizures; TBI 2016; ulnar pince nerve; lg3 - PSHx: 21:46 heart cath (ulnar pince nerve); lg3 - Immunization history:: Adult Immunizations up to date. - Social history:: Smoking status: Patient denies any tobacco usage or history of. Patient uses alcohol, occasionally. - Family history:: not pertinent. Assessment: 23:00 Reassessment: Patient appears in no apparent distress at this time. Patient and/or jb4 family updated on plan of care and expected duration. Pain level reassessed. Patient is alert, oriented x 3, equal unlabored respirations, skin warm/dry/pink. 04/23 00:00 Reassessment: Patient appears in no apparent distress at this time. Patient and/or jb4 family updated on plan of care and expected duration. Pain level reassessed. Patient is alert, oriented x 3, equal unlabored respirations, skin warm/dry/pink. 00:50 Reassessment: Patient appears in no apparent distress at this time. Patient and/or jb4 family updated on plan of care and expected duration. Pain level reassessed. Patient is alert, oriented x 3, equal unlabored respirations, skin warm/dry/pink. Vital Signs: 04/22 21:43 BP 147 / 94; Pulse 91; Resp 17 S; Temp 97.3(TE); Pulse Ox 100% on R/A; Weight 84.37 kg lg3 (R); Height 6 ft. 0 in. (R); Pain 0/10; 23:00 BP 135 / 86; Pulse 92; Resp 16; Pulse Ox 97% on R/A; jb4 04/23 00:00 BP 126 / 84; Pulse 87; Resp 16; Pulse Ox 94% on R/A; jb4 04/22 21:43 Body Mass Index 25.23 (84.37 kg, 182.88 cm) lg3 02 21:43 Pain Scale: Adult lg3 ED Course: 02 21:39 Patient arrived in ED. kj1 21:44 Haile Crockett MD is Attending Physician. rt 21:46 Triage completed. lg3 21:46 Arm band placed on right wrist. lg3 23:46 initiated tranfer with Nikki Vega. pm6 23:49 Dr Lynch and [facility] accepted. pm6 04/23 00:12 initiated Transfer truck with [facility] ETA 15 Min. pm6 00:50 No provider procedures requiring assistance completed. Patient transferred, IV remains jb4 in place. Administered Medications: 04/22 22:23 Drug: Glucagon IVP 1 mg IVP once Route: IVP; Site: right antecubital; jb4 22:23 Drug: Ondansetron IVP 4 mg IVP once; over 2 minutes Route: IVP; Site: right antecubital;jb4 Outcome: 23:21 ER care complete, transfer ordered by . rt 04/23 00:50 Transferred by ground EMS to [facility], Transfer form jb4 completed. Condition: stable Discharge instructions given to patient, Instructed on the need for transfer, Demonstrated understanding of instructions, 00:51 Patient left the ED. jb4 Signatures: Sourav Mann RN RN jb4 Laura Brady kj1 Peyton Souza RN RN lg3 Haile Crockett MD MD rt Gloria Forbes pm6 Corrections: (The following items were deleted from the chart) 04/22 21:49 21:46 Home Meds: meloxicam oral; lg3 lg3
--- NOTE | 2023-04-22 23:22 | EDPHYS ---
Physician Documentation [facility] Name: Humphrey Dalton Age: 58 yrs Sex: Male : 1965 Arrival Date: 04/22/2023 Time: 21:36 Bed 8 Private MD: ED Physician Haile Crockett HPI: 04/22 23:54 This 58 yrs old Male presents to ER via Ambulatory with complaints of HOT DOG STUCK IN rt THROAT. 23:54 Patient presents to the ED with esophageal food bolus. Patient has had previous rt esophageal food boluses. Patient was in a hot dog and got stuck in his throat. The patient tried drinking joelle bruce, was unable to do so. He denies other acute complaints at this time, symptoms are moderate in severity, no other aggravating or with any factors.. Historical: - Allergies: 21:46 Amoxicillin; lg3 21:46 HYDROCODONE; lg3 21:46 Oxycodone HCl; lg3 - Home Meds: 21:46 meloxicam oral [Active]; aspirin 81 mg Oral capsule [Active]; gabapentin Oral [Active]; lg3 Methocarbamol Oral [Active]; - PMHx: 21:46 Hypercholesterolemia; Seizures; TBI 2016; ulnar pince nerve; lg3 - PSHx: 21:46 heart cath (ulnar pince nerve); lg3 - Immunization history:: Adult Immunizations up to date. - Social history:: Smoking status: Patient denies any tobacco usage or history of. Patient uses alcohol, occasionally. - Family history:: not pertinent. ROS: 23:54 Constitutional: Negative for fever, chills, and weight loss, Cardiovascular: Negative rt for chest pain, palpitations, and edema, Respiratory: Negative for shortness of breath, cough, wheezing, and pleuritic chest pain, MS/Extremity: Negative for injury and deformity, Skin: Negative for injury, rash, and discoloration, Neuro: Negative for headache, weakness, numbness, tingling, and seizure, Psych: Negative for depression, anxiety, suicide ideation, homicidal ideation, and hallucinations, 23:54 Abdomen/GI: Positive for vomiting, Negative for abdominal pain, Exam: 23:54 Constitutional: This is a well developed, well nourished patient who is awake, alert, rt and in no acute distress. Head/Face: Normocephalic, atraumatic. Chest/axilla: Normal chest wall appearance and motion. Nontender with no deformity. No lesions are appreciated. Cardiovascular: Regular rate and rhythm with a normal S1 and S2. No gallops, murmurs, or rubs. Normal PMI, no JVD. No pulse deficits. Respiratory: Lungs have equal breath sounds bilaterally, clear to auscultation and percussion. No rales, rhonchi or wheezes noted. No increased work of breathing, no retractions or nasal flaring. Abdomen/GI: Soft, non-tender, with normal bowel sounds. No distension or tympany. No guarding or rebound. No evidence of tenderness throughout. Skin: Warm, dry with normal turgor. Normal color with no rashes, no lesions, and no evidence of cellulitis. MS/ Extremity: Pulses equal, no cyanosis. Neurovascular intact. Full, normal range of motion. Neuro: Awake and alert, GCS 15, oriented to person, place, time, and situation. Cranial nerves II-XII grossly intact. Motor strength 5/5 in all extremities. Sensory grossly intact. Cerebellar exam normal. Normal gait. Psych: Awake, alert, with orientation to person, place and time. Behavior, mood, and affect are within normal limits. Vital Signs: 21:43 BP 147 / 94; Pulse 91; Resp 17 S; Temp 97.3(TE); Pulse Ox 100% on R/A; Weight 84.37 kg lg3 (R); Height 6 ft. 0 in. (R); Pain 0/10; 23:00 BP 135 / 86; Pulse 92; Resp 16; Pulse Ox 97% on R/A; jb4 04/23 00:00 BP 126 / 84; Pulse 87; Resp 16; Pulse Ox 94% on R/A; jb4 04/22 21:43 Body Mass Index 25.23 (84.37 kg, 182.88 cm) lg3 02 21:43 Pain Scale: Adult lg3 MDM: 04/22 21:53 Patient medically screened. rt 23:54 Differential Diagnosis Esophageal food bolus. Data reviewed: vital signs, nurses notes. rt Management of patient was discussed with the following: Hospitalist: Discussed with accepting hospitalist at [facility]. Test considered but Not performed: CT: Stable vital signs, no abdominal pain, CT scan not indicated. Care significantly affected by the following chronic conditions: Seizure disorder. Response to treatment: There is no appreciated change of the patient's symptoms at this time. ED course: Unable to pass esophageal food bolus with glucagon, fluids, no GI on-call, patient requires transfer. Patient is requesting to go to [facility] as he has previous care there.. Administered Medications: 22:23 Drug: Glucagon IVP 1 mg IVP once Route: IVP; Site: right antecubital; jb4 22:23 Drug: Ondansetron IVP 4 mg IVP once; over 2 minutes Route: IVP; Site: right antecubital;jb4 Disposition Summary: 04/22/23 23:21 Transfer Ordered Notes: Transfer Location: [facility]-System rt Reason: Patient request rt Condition: Stable rt Problem: new rt Symptoms: are unchanged rt Accepting Physician: (04/23/23 00:51) jb4 Diagnosis - Foreign body in esophagus rt Forms: - Medication Reconciliation Form rt - SBAR form rt Signatures: Sourav Mann RN RN jb4 Peyton Souza RN RN lg3 Haile Crockett MD MD rt Corrections: (The following items were deleted from the chart) 21:49 21:46 Home Meds: meloxicam oral; lg3 lg3 04/23 00:51 04/22 23:21 rt jb4
[2023-04-23 02:43] VITALS: BP 126/84; TEMP 97.3; O2SAT 94
== END ==
LOC: ER 21:36
DX: T18.128A Food in esophagus causing other injury, initial encounter (principal); Z87.820 Personal history of traumatic brain injury; Z88.1 Allergy status to other antibiotic agents; Z88.5 Allergy status to narcotic agent
CPT/HCPCS: J1610; J2405

== ENCOUNTER 2023-07-13 09:49 | Emergency (ER) | payer BC ==
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
[2023-07-13 11:08] VITALS: BP 157/106; TEMP 98.1; O2SAT 100
== END 2023-07-13 10:36 | disposition home or self-care (01) ==
LOC: ER 09:49
DX: M54.12 Radiculopathy, cervical region (principal); Z88.1 Allergy status to other antibiotic agents; Z88.5 Allergy status to narcotic agent
CPT/HCPCS: 99283

== ENCOUNTER 2023-07-16 21:09 | Emergency (ER) | payer BC ==
--- OUTSIDE RECORDS SUMMARY | 2023-07-16 21:14 | XMS REPORT | Continuity of Care Document ---
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 examined the patient on 04/23/[address] Hernandes's resident H&P note as written. I actively participated in the decision-making process. Please see the resident's note for additional details.Taya Lynch MD 04/23/2023 5:03 KI36096-5Amzpfoa and physical [id number], Nitza1.2.840.964131.1.13.104.2.7.2.404575N hdtcrsHnpspRY4531-21-80N10:03:28History and physical noteTXT1.2.840.774662.1.13.104.2.7.2.63004 9|[id number] for patient bgus31343-2Zpditlm and physical noteLNNARRATIVEFormatted C-CDA narrative textUTPRESBYTERIAN [facility] - [address] [place] [address] PjeeQwggduuevSkqspquqpEHGQ9801299433ETLSIC TKQKDAPGBHOGEPKC9245-82-25D28:03:281.2.840 .265990.1.72.3.15|1.2.840.452267.1.13.104. 2.7.2.727879_[id number] [facility] Notes Date/Time Note Provider Source 2023-05-31 09:48:28 5v7uIr3wHxh/+y/3i/Yv uxej0fNETm9lt 9aEj/o3I6hu4OSVjJwnG2xHWLbeudEb24 12-06-1009:48:28Addended by: DEEJAY PEREZ on: 05/31/2023 09:48 AMModules accepted: Orders 24611-3Aqgkzngk FzytajibGO1223-87-71T83:48:28Adde ndum DocumentTXT1.2.840.191972.1.13.10 4.2.7.2.303738|[id number] [facility] for patient trfz55154-3LpvsBVKIRZNSYAISqdsziy ed C-CDA narrative text[address] OgxjRcybixwquDmisqvjrzJZRG2968453 923CLIIWJWXTQKLCVNLRSORDP8935-58- 11T09:48:281.2.840.611459.1.72.3. 15|1.2.840.920267.1.13.104.2.7.2. 727879_[id number] [facility] 2023-05-31 09:46:50 l2gRRSe/HGvI61mMlpW5 YYLUmRIRb+Bqf TGwk2ddd2H6ncW4WhJCufe2P2DIYClc65 12-06-10T09:46:50 Have sent prescription to [facility] (can be mailed to patient's house) and consulted GI clinical pharmacist to ensure rx is covered and gets to patient.Deejay Perez PA-C 05/31/2023 9:47 AMDivision of Gastroenterology and HepatologyNorth [facility] 10210-6Tcsowanjp encounter KhhxXV4194-22-08L65:47:48Telephon e encounter NoteTXT1.2.840.856857.1.13.104.2. 7.2.751076|[id number] for patient gzgl80239-4UmetTYWJEMWDFNONvlcthy ed C-CDA narrative text[address]TXTX[address] 249WIDNLRNMQZHRWBXRKGCQOD3037-00- 11T09:47:481.2.840.567616.1.72.3. 15|1.2.840.495979.1.13.104.2.7.2. 727879_[id number] [facility] 2023-05-22 19:17:00 Q5sZA2URTUYzhV+EQy3+ Rl4LBBmHStHRM Z5/Gc/hmsZYH9VhT7htbZI99aJK77 12-06-01T19:17:00 Sent work excuse letter to patient. 44753-1Ochxptssm encounter KvpvLH2798-27-97H69:17:45Telephon e encounter NoteTXT1.2.840.250433.1.13.104.2. 7.2.680133|[id number] for patient mbwh50462-3XncrDWLAWVQLHKIZszrstq ed C-CDA narrative text[address] 667HLQYZEAEXOJFQVFBOWLFGG1243-31- 02T19:17:451.2.840.864757.1.72.3. 15|1.2.840.547065.1.13.104.2.7.2. 727879_[id number] [facility] 2023-05-20 17:01:49 i4Gmb53fPyCKqDQTAB37 fgaLuGqueDy4i yBE+5EkTfbqc9GjFAX0ArfGgBj0h9Gb24 15-05-28T17:01:49Addended by: DEEJAY PEREZ on: 05/20/2023 05:01 PMModules accepted: Orders 19059-4Yxqnjyqo EmfwahvbVX2613-26-15B57:01:49Adde ndum DocumentTXT1.2.840.705815.1.13.10 4.2.7.2.517056|[id number] ble for patient putm26908-7IybtUSHOSGYXXBDLmezrem ed C-CDA narrative text[address]TX[address] 440YHKLNVQSGBYYHVLOOMTGYX8614-07- 29T17:01:491.2.840.023794.1.72.3. 15|1.2.840.764304.1.13.104.2.7.2. 727879_[id number] [facility] 2023-05-20 17:01:05 JZnkx3U3NX3JVnyG3cJP H9vKC5oXvKUPA mj6+mEXN8YdkPGqiY5y2ySZBkZ2/F0620 15-05-287:01:05 Sent in new prescription of omeprazole 40 mg BID with diagnosis codes from visit. Should be approved by insurance.Deejay Perez PA-C 05/20/2023 5:01 PMDivision of Gastroenterology and HepatologyNorth [facility] 71955-1Yahzjbfnr encounter NricQH7822-21-69C26:01:39Telephon e encounter NoteTXT1.2.840.301518.1.13.104.2. 7.2.913879|[id number] for patient auvn98650-2TyyrQHOMMLKYPQIFwtdvop ed C-CDA narrative text[address] 562QRDYHGGSQJWBJEVTPTDNTP7875-35- 29T17:01:391.2.840.113255.1.72.3. 15|1.2.840.075636.1.13.104.2.7.2. 727879_[id number] [facility] 2023-05-20 13:05:53 kScb3w5G6DO616STLhy8 x4vAOyyyMYyUO A7LsezRH8oQPiGXFKCgWbeyRXbZSo2J39 15-05-28T13:05:53 Humphrey Dalton is a 58 year old malePt is calling requesting a call, he states that he has 8 pills left for omeprazole and that the insurance wont approve of giving him a prescription for twice a day, so he is requesting guidance to see what he can do. Please advise.[id number] - [place], [place] - [address] [facility]ETPhone: Jxzrpkgrpmyozu signed by Chasidy Gamboa at 05/20/2023 1:11 PM TUX88593-5Pifjaguls encounter GcheNY8335-11-42S70:11:54Telephon e encounter NoteTXT1.2.840.664873.1.13.104.2. 7.2.109437|[id number] for patient kksq68824-1QkcqEUOVWKDLAUNOpcpyhb ed C-CDA narrative textUT[address] QdxcTzppuytbkVyywkilvzLCCP8785472 107MHEBINNHNMPFDLPGUIWJOP4277-12- 29T13:11:541.2.840.626706.1.72.3. 15|1.2.840.417160.1.13.104.2.7.2. 727879_[id number] [facility] 2023-05-17 12:24:55 Vv1hC82+j+Vf5nMICcCM 6AqROo75Sj8Zz 3e6W2cPMt1ivdK3d3RyicdHvfqKXimH46 15-05-25T12:24:55 Humphrey Dalton is a 58 year old malePatient calling to request work excuse for FMLA forms his job is needing for his hospital visit from 04/23/23 - 05/07/23. It will need to have th reason for his visit statedOffice Woman'S HospitalFax: Akgbfwubadgsbu signed by Donovan Camejo at 05/17/2023 12:28 PM DIU71171-3Dudkbfflw encounter EzobXK4309-94-95K49:28:25Telephon e encounter NoteTXT1.2.840.394438.1.13.104.2. 7.2.869648|[id number] for patient divh09476-9YgkzHBMTRIVKSNTNtzcrhn ed C-CDA narrative textUT[address] ZgwkQveohzpmaRceuatieiUKZN0739919 955LQPJOVDAUSKMEAOTGKRULY7115-89- 26T12:28:251.2.840.036036.1.72.3. 15|1.2.840.781570.1.13.104.2.7.2. 727879_[id number] [facility] 2023-05-14 15:44:46 12LweKf/UxPaLawApFO3 PTc7zysBYRkBb LdF1mW4/5XbqDsd3YtgGvrTDJFeRvWQ62 15-05-22T15:44:46 Called Patient to discuss work excuse. [...] chart on 04/23/23 [place]. [address]-5Tbxiffatx encounter ZhnkXU4150-25-68L95:53:52Telephon e encounter NoteTXT1.2.840.160923.1.13.104.2. 7.2.738689|[id number] for patient gdpp23670-7SpukVVRJUBITLWSQytubqh ed C-CDA narrative [id number] N Yared [address]TXTX[address] 275CPSCPXQTVDUMHGMDOHDXHF5713-52- 23T15:53:521.2.840.869574.1.72.3. 15|1.2.840.262786.1.13.104.2.7.2. 727879_[id number] Gloria Espino Yared [facility] 2023-05-14 13:31:07 bwMNf+ehkwqGe5JACwX+ clrdeKMJM9fQI 5/ktAy4xKGjBk6ofG34MCJmKBy1Tz1Y08 15-05-22T13:31:07 Pt calling states he is needing a work excuse that has him out starting 04/23/23 through 05/07/23. It will need to have the reason he was out. Callback [phone] [phone] signed by Geovanna Helms at 05/14/2023 1:38 PM FEX93333-8Uffnrwomp encounter BobyYA5831-92-06V92:38:14Telephon e encounter NoteTXT1.2.840.548554.1.13.104.2. 7.2.988787|[id number] for patient olye69121-9QgqvBWEEXVJZKJJSxelqfn ed C-CDA narrative text[address]TXTX[address] 979ILAHJZBAHICVVJEAEVNPSR3172-31- 23T13:38:141.2.840.232870.1.72.3. 15|1.2.840.196381.1.13.104.2.7.2. 727879_[id number] [facility] 2023-04-23 10:51:12 BqiMqvJofiBClvXqcRtq DYdiXPnIfHnTE vlQp3CEUZiNIVdiYSEJwEE8DHqEDgm753 15-05-01T10:51:12 Problem: PainGoal: Control of pain at or below patient's documented comfort goalOutcome: Not progressing as expectedGoal: Reduction in pain sensationOutcome: Not progressing as expectedProblem: Falls, Risk ofGoal: Absence of fallsOutcome: Not progressing as expectedProblem: Discharge PlanningGoal: Adequate for dischargeOutcome: Not progressing as expectedGoal: Effective communicationOutcome: Not progressing as expected 70238-8Lptu of care aupdEK8309-33-57F53:51:16Plan of care noteTXT1.2.840.584197.1.13.104.2. 7.2.077180|[id number] for patient ughx79211-6AjboCPNZAZDHHSMBmkoyve ed C-CDA narrative [id number] West RN[address] GiiqFxsdqdjbbWskrifqysWZCN7874741 170DCGRFSUFOYIMXJANABGTUA0870-09- 02T10:51:161.2.840.329343.1.72.3. 15|1.2.840.537413.1.13.104.2.7.2. 727879_[id number] Marichuy West RN [facility] 2023-04-23 03:55:22 cMtSNmDDsdCv5kRFPlEc 6RzeP5Ii9e5Ow o8pSM9Y/tOuEEbqWErkVk5NjgHJIoPp24 15-05-01T03:55:22 Problem: PainGoal: Control of pain at or below patient's documented comfort goalOutcome: Progressing as expectedGoal: Reduction in pain sensationOutcome: Progressing as expectedProblem: Falls, Risk ofGoal: Absence of fallsOutcome: Progressing as expectedProblem: Discharge PlanningGoal: Adequate for dischargeOutcome: Progressing as expectedGoal: Effective communicationOutcome: Progressing as expected 84122-9Nldv of care ehbhFH1817-95-79N39:55:30Plan of care noteTXT1.2.840.951727.1.13.104.2. 7.2.690728|[id number] for patient urhs51207-6QakjRWCEZHLMMXGQjpbvhp ed C-CDA narrative [id number]' M Thomas RNUT[address] PrqhJexbcohhrVurpgtnvjXYCK5431802 322ZUCHFJNFUJLVSFELVNCVKT9027-22- 02T03:55:301.2.840.737635.1.72.3. 15|1.2.840.459319.1.13.104.2.7.2. 727879_[id number] Kayden Torres RN [facility]
[2023-07-16] MEDS ORDERED: dexAMETHasone 10 MG/ML VIAL ONE (21:43)
[2023-07-16] MEDS ORDERED: KETOROLAC 30 MG/ML INJ ONE (21:43)
--- NOTE | 2023-07-16 22:24 | ER ---
Nurse's Notes [facility] Name: Humphrey Dalton Age: 58 yrs Sex: Male : 1965 Arrival Date: 07/16/2023 Time: 21:09 Bed DX4 Private MD: Diagnosis: Radiculopathy, cervical region Presentation: 07/15 21:19 Chief complaint: Patient states: Pt c/o left shoulder and neck pain that has gotten tl4 worse since last Wednesday. Coronavirus screen: At this time, the client does not indicate any symptoms associated with coronavirus-19. Ebola Screen: No symptoms or risks identified at this time. Initial Sepsis Screen: Does the patient meet any 2 criteria? No. Patient's initial sepsis screen is negative. Does the patient have a suspected source of infection? No. Patient's initial sepsis screen is negative. Risk Assessment: Do you want to hurt yourself or someone else? Patient reports no desire to harm self or others. Onset of symptoms was July 10, 2023. 21:19 Acuity: TATIANA 4 tl4 21:19 Method Of Arrival: Ambulatory tl4 Triage Assessment: 21:23 General: Appears in no apparent distress. Behavior is calm, cooperative. Pain: tl4 Complains of pain in left arm. EENT: No signs and/or symptoms were reported regarding the EENT system. Neuro: Level of Consciousness is awake, alert, obeys commands, Oriented to person, place, time, situation, Moves all extremities. Full function Gait is steady, Speech is normal. Cardiovascular: Capillary refill < 3 seconds Patient's skin is warm and dry. Respiratory: Airway is patent Respiratory effort is even, unlabored, Respiratory pattern is regular, symmetrical, Breath sounds are clear bilaterally. GI: No signs and/or symptoms were reported involving the gastrointestinal system. : No signs and/or symptoms were reported regarding the genitourinary system. Derm: No signs and/or symptoms reported regarding the dermatologic system. Musculoskeletal: Reports pain in left arm. Historical: - Allergies: 21:21 Amoxicillin; tl4 21:21 HYDROCODONE; tl4 21:21 Oxycodone HCl; tl4 - Home Meds: 21:21 meloxicam oral [Active]; gabapentin Oral [Active]; Methocarbamol Oral [Active]; tl4 atorvastatin oral [Active]; aspirin 81 mg Oral capsule [Active]; - PMHx: 21:21 Hypercholesterolemia; Seizures; TBI 2016; ulnar pince nerve; tl4 - PSHx: 21:21 heart cath; tl4 - Immunization history:: Adult Immunizations unknown. - Infectious Disease History:: Denies. - Social history:: Smoking status: Patient denies any tobacco usage or history of. Screenin:20 [facility] ED Fall Risk Assessment (Adult) History of falling in the last 3 months, tl4 including since admission No falls in past 3 months (0 pts) Confusion or Disorientation No (0 pts) Intoxicated or Sedated No (0 pts) Impaired Gait No (0 pts) Mobility Assist Device Used No (0 pt) Altered Elimination No (0 pt) Score/Fall Risk Level 0 - 2 = Low Risk Oriented to surroundings, Maintained a safe environment, Educated pt \T\ family on fall prevention, incl call for assistance when getting out of bed, Assessed \T\ reinforced patient's understanding of fall precautions. Abuse screen: Denies threats or abuse. Denies injuries from another. Nutritional screening: No deficits noted. Tuberculosis screening: No symptoms or risk factors identified. Assessment: 22:20 Reassessment: No changes from previously documented assessment. Patient and/or family tl4 updated on plan of care and expected duration. Pain level reassessed. Patient states feeling better. Vital Signs: 21:19 BP 156 / 116; Pulse 112; Resp 18; Temp 98.4(O); Pulse Ox 100% on R/A; Pain 10/10; tl4 21:23 Weight 86.18 kg; Height 6 ft. 0 in. ; tl4 22:20 BP 141 / 86; Pulse 92; Resp 16; Pulse Ox 98% on R/A; tl4 21:23 Body Mass Index 25.77 (86.18 kg, 182.88 cm) tl4 21:19 Pain Scale: Adult tl4 ED Course: 21:17 Patient arrived in ED. gm2 21:18 Klarissa Brady FNP-C is PHCP. kb 21:18 Zack Colón MD is Attending Physician. kb 21:21 Triage completed. tl4 21:24 Arm band placed on right wrist. tl4 22:21 Patient has correct armband on for positive identification. Call light in reach. tl4 Provided Education on: ED process. 22:21 No provider procedures requiring assistance completed. Patient did not have IV access tl4 during this emergency room visit. Administered Medications: 21:50 Drug: Dexamethasone IM 10 mg IM once Route: IM; Site: left deltoid; tl4 22:20 Follow up: Response: No adverse reaction tl4 21:50 Drug: Ketorolac IM 30 mg IM once Route: IM; Site: left ventrogluteal; tl4 22:19 Follow up: Response: No adverse reaction; Pain is decreased tl4 Medication: 22:21 VIS not applicable for this client. tl4 Outcome: 22:23 Discharge ordered by . nimisha 22:53 Discharged to home ambulatory, cm10 22:53 Condition: good :53 Discharge instructions given to patient, Instructed on discharge instructions, follow up and referral plans. medication usage, Demonstrated understanding of instructions, follow-up care, medications, Prescriptions given X 1, :53 Patient left the ED. cm10 Signatures: Klarissa Brady, SAFETY NET MAKER-C JAMIE-Caroline Pearce RN RN cm10 Mikaela Ca 2 Shubham Christianson RN RN tl4
--- NOTE | 2023-07-16 22:24 | EDPHYS ---
Physician Documentation [facility] Name: Humphrey Dalton Age: 58 yrs Sex: Male : 1965 Arrival Date: 07/16/2023 Time: 21:09 Bed DX4 Private MD: ED Physician Zack Colón HPI: 07/15 21:54 This 58 yrs old Male presents to ER via Ambulatory with complaints of Shoulder Pain. kb 21:54 Pt is a 58 year old male who presents for left neck and shoulder pain that started 7 kb days ago. Denies injury or trauma. States the pain starts in the left side of his neck and radiates down left arm. Historical: - Allergies: 21:21 Amoxicillin; tl4 21:21 HYDROCODONE; tl4 21:21 Oxycodone HCl; tl4 - Home Meds: 21:21 meloxicam oral [Active]; gabapentin Oral [Active]; Methocarbamol Oral [Active]; tl4 atorvastatin oral [Active]; aspirin 81 mg Oral capsule [Active]; - PMHx: 21:21 Hypercholesterolemia; Seizures; TBI 2016; ulnar pince nerve; tl4 - PSHx: 21:21 heart cath; tl4 - Immunization history:: Adult Immunizations unknown. - Infectious Disease History:: Denies. - Social history:: Smoking status: Patient denies any tobacco usage or history of. ROS: 21:52 Constitutional: As per HPI kb Exam: 21:53 Constitutional: This is a well developed, well nourished patient who is awake, alert, kb and in no acute distress. Head/Face: Normocephalic, atraumatic. ENT: Moist Mucous membranes Cardiovascular: Regular rate Respiratory: Respirations even and unlabored. No increased work of breathing. Talking in full sentences Skin: Warm, dry with normal turgor. Normal color. Neuro: Awake and alert, GCS 15, oriented to person, place, time, and situation. Moves all extremities. Normal gait. 21:53 Neck: External neck: tenderness, that is moderate, of the left mid cervical area, left trapezius and left posterior aspect of neck, C-spine: appears grossly normal, ROM/movement: is normal, 21:53 Musculoskeletal/extremity: Extremities: grossly normal except: noted in the left tricep: tenderness, ROM: intact in all extremities, limited active range of motion due to pain, Circulation is intact in all extremities. Sensation intact. Vital Signs: 21:19 BP 156 / 116; Pulse 112; Resp 18; Temp 98.4(O); Pulse Ox 100% on R/A; Pain 10/10; tl4 21:23 Weight 86.18 kg; Height 6 ft. 0 in. ; tl4 22:20 BP 141 / 86; Pulse 92; Resp 16; Pulse Ox 98% on R/A; tl4 21:23 Body Mass Index 25.77 (86.18 kg, 182.88 cm) tl4 21:19 Pain Scale: Adult tl4 MDM: 21:18 Patient medically screened. kb 21:53 Differential diagnosis: radiculopathy, strain. Data reviewed: vital signs, nurses kb notes. Test considered but Not performed: X-ray: x-ray considered, but pt has no bony tenderness and denies any injury. Counseling: I had a detailed discussion with the patient and/or guardian regarding the historical points, exam findings, and any diagnostic results supporting the discharge/admit diagnosis, the need for outpatient follow up, a family practitioner, to return to the emergency department if symptoms worsen or persist or if there are any questions or concerns that arise at home. 07/15 21:58 Order name: Vital Signs; Complete Time: 22:19 kb Administered Medications: 21:50 Drug: Dexamethasone IM 10 mg IM once Route: IM; Site: left deltoid; tl4 22:20 Follow up: Response: No adverse reaction tl4 21:50 Drug: Ketorolac IM 30 mg IM once Route: IM; Site: left ventrogluteal; tl4 22:19 Follow up: Response: No adverse reaction; Pain is decreased tl4 Disposition Summary: 07/16/23 22:23 Discharge Ordered Notes: Location: Home kb Condition: Stable kb Diagnosis - Radiculopathy, cervical region kb Followup: kb - With: Emergency Department - When: As needed - Reason: Worsening of condition Followup: kb - With: Private Physician - When: 2 - 3 days - Reason: Recheck today's complaints, Continuance of care, Re-evaluation by your physician Discharge Instructions: - Discharge Summary Sheet kb - Cervical Radiculopathy, Wzxo-km-Kprt kb Forms: - Medication Reconciliation Form kb - Antibiotic Education kb - Prescription Opioid Use kb - Patient Portal Instructions kb - Leadership Thank You Letter nimisha Prescriptions: - Prednisone 20 mg Oral Tablet - take 1 tablet ORAL route once daily for 5 days; 5 tablet; Refills: 0, Product kb Selection Permitted Addendum: 07/20/2023 21:58 Co-signature as Attending Physician, Zack Colón MD I agree with the assessment and c cruz plan of care. Signatures: Klarissa Brady, GREEN MARKETER-C GREEN MARKETER-CkZack Butler MD MD cha Logdahl, Toni, RN RN tl4
[2023-07-16 22:59] VITALS: BP 141/86; TEMP 98.4; O2SAT 98
== END 2023-07-16 22:53 | disposition home or self-care (01) ==
LOC: ER 21:09
DX: M54.12 Radiculopathy, cervical region (principal); E78.00 Pure hypercholesterolemia, unspecified; Z79.82 Long term (current) use of aspirin; Z87.820 Personal history of traumatic brain injury; Z88.1 Allergy status to other antibiotic agents; Z88.5 Allergy status to narcotic agent; Z98.61 Coronary angioplasty status
CPT/HCPCS: J1100

== ENCOUNTER 2024-01-04 15:33 | Emergency (ER) | payer BC ==
--- OUTSIDE RECORDS SUMMARY | 2024-01-04 15:41 | XMS REPORT | Continuity of Care Document ---
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 Encounters Start Date/Time End Date/Time Encounter Type Admission Type Attending Clinicians Care Facility Care Department Encounter ID Source 2024-01-01 00:00:00 2024-01-04 09:55:20 Patient Secure Deejay Santoro [facility] 1.2.840.114 350.1.13.10 4.2.7.2.686 [id number] [facility] 2024-01-03 08:05:07 2024-01-03 08:05:[address] [facility] [id number] Harjinder Sim 2023-12-21 09:42:31 2023-12-21 09:42:[address] [facility] [id number] Harjinder Sim 2023-12-20 17:01:27 2023-12-20 17:01:[address] [facility] [id number] Harjinder Sim 2023-12-20 00:00:00 2023-12-20 00:00:00 Outpatient Visit SFA [id number] Harjinder Sim 2023-11-29 08:54:11 2023-11-29 08:54:[address] [facility] [id number] Harjinder Sim 2023-11-29 00:00:00 2023-11-29 00:00:00 Outpatient Visit SFA [id number] Harjinder Sim 2023-11-05 12:30:00 2023-11-05 13:00:00 Office Visit Deejay Perez [facility] ..840.114 350.1.13.10 4.2.7.2.686 [id number] [facility] 2023-11-05 12:30:00 2023-11-05 12:30:00 Outpatient R DEEJAY PEREZ ASHLEY [facility] [id number] [facility] 2023-11-04 12:41:00 2023-11-04 15:05:00 Outpatient R ERVIN ROCHE [facility] [id number] [facility] 2023-11-04 12:41:00 2023-11-04 15:05:00 Hospital Encounter Ervin Roche [facility] 1..840.114 350.1.13.10 4.2.7.2.686 [id number] [facility] 2023-11-04 14:00:00 2023-11-04 14:45:00 Surgery Ervin Roche [facility] 1.84.114 350.1.13.10 4.2.7.2.686 [id number] [facility] 2023-10-21 16:12:54 2023-10-21 16:12:[address] [facility] [id number] Harjinder Sim 2023-10-21 00:00:00 2023-10-21 00:00:[address] [facility] [id number] Harjinder Sim 2023-09-15 00:00:00 2023-10-16 18:20:04 Patient Secure Msg Doctor Unassigned, [place] [facility] 1.84.114 350.1.13.10 4.2.7.2.686 [id number] [facility] 2023-05-07 00:00:00 2023-10-04 11:46:23 Letter (Out) Deejay Perez [facility] 1..114 350.1.13.10 4.2.7.2.686 [id number] [facility] 2023-08-23 00:00:00 2023-09-25 18:23:48 Patient Secure Msg Doctor Unassigned, [place] [facility] 1..114 350.1.13.10 4.2.7.2.686 [id number] [facility] 2023-09-17 00:00:00 2023-09-20 12:45:59 Patient Secure Msg Shantell Polo [facility] 1..114 350.1.13.10 4.2.7.2.686 [id number] [facility] 2023-09-13 15:59:46 2023-09-13 15:59:[address] [facility] [id number] Harjidner Sim 2023-09-13 00:00:00 2023-09-13 00:00:[address] [facility] [id number] Harjinder Sim 2023-09-01 11:09:11 2023-09-01 11:09:[address] [facility] [id number] Harjinder Sim 2023-08-31 09:34:04 2023-08-31 09:34:[address] [facility] [id number] Harjinder Sim 2023-08-31 00:00:00 2023-08-31 00:00:[address] [facility] [id number] Harjinder Sim 2023-08-25 00:00:00 2023-08-26 15:37:46 Patient Secure Msg Doctor Unassigned, [place] [facility] 1..840.114 350.1.13.10 4.2.7.2.686 [id number] [facility] 2023-08-26 11:52:00 2023-08-26 11:52:[address] [facility] [id number] Harjinder Sim 2023-08-26 00:00:00 2023-08-26 00:00:[address] [facility] [id number] Harjinder Sim 2023-08-20 00:00:00 2023-08-20 17:52:17 Patient Secure Msg Deejay Perez [facility] 1..840.114 350.1.13.10 4.2.7.2.686 [id number] [facility] 2023-07-04 00:00:00 2023-08-07 18:09:10 Patient Secure Msg Deejay Perez [facility] 1.0.114 350.1.13.10 4.2.7.2.686 [id number] [facility] 2023-07-27 12:48:35 2023-07-27 23:59:00 Outpatient R ANAMONETDEEJAY MONET PEREZLEY [facility] [id number] [facility] 2023-07-27 12:48:35 2023-07-27 23:59:00 Hospital Encounter Deejay Perez [facility] 1..114 350.1.13.10 4.2.7.2.686 [id number] [facility] 2023-07-26 08:38:23 2023-07-26 08:38:[address] [facility] [id number] Harjinder Sim 2023-07-24 00:00:00 2023-07-24 00:00:[address] [facility] [id number] Harjinder Sim 2023-06-16 00:00:00 2023-06-16 00:00:00 Patient Outreach Rimma Barger [facility] 1.114 350.1.13.10 4.2.7.2.686 [id number] [facility] 2023-06-10 00:00:00 2023-06-10 00:00:00 Case Management Deejay Perez [facility] 1.114 350.1.13.10 4.2.7.2.686 [id number] [facility] 2023-06-01 08:03:59 2023-06-01 23:59:00 Hospital Encounter Deejay Perez [facility] 1..114 350.1.13.10 4.2.7.2.686 [id number] [facility] 2023-06-01 00:00:00 2023-06-01 23:59:00 Outpatient DEEJAY MIRANDA ASHLEY [facility] [id number] [facility] 2023-05-31 00:00:00 2023-05-31 00:00:00 Patient Secure Msg Doctor Unassigned, [place] [facility] 1.2840.114 350.1.13.10 4.2.7.2.686 [id number] [facility] 2023-05-20 00:00:00 2023-05-20 00:00:00 Telephone Deejay Perez [facility] 1..114 350.1.13.10 4.2.7.2.686 [id number] [facility] 2023-05-17 00:00:00 2023-05-17 00:00:00 Telephone Taya Lynch [facility] 1..114 350.1.13.10 4.2.7.2.686 [id number] [facility] 2023-05-14 11:42:05 2023-05-14 11:42:[address] [facility] [id number] Harjinder Sim 2023-05-14 00:00:00 2023-05-14 00:00:00 Telephone Deejay Perze [facility] 1..114 350.1.13.10 4.2.7.2.686 [id number] [facility] 2023-05-07 09:00:00 2023-05-07 10:00:00 Office Visit Deejay Perez [facility] 1..114 350.1.13.10 4.2.7.2.686 [id number] [facility] 2023-05-07 09:00:00 2023-05-07 09:00:00 Outpatient DEEJAY MIRANDA ASHLEY [facility] [id number] [facility] 2023-05-04 15:00:00 2023-05-04 16:03:48 Outpatient R TEA WARD SARAH [facility] [id number] [facility] 2023-05-04 15:00:00 2023-05-04 16:03:48 Office Visit Tea Ward [facility] 1.2.840.114 350.1.13.10 4.2.7.2.686 [id number] [facility] 2023-05-04 00:00:00 2023-05-04 00:00:00 Orders Only Doctor Unassigned, [place] [facility] 1.284.114 350.1.13.10 4.2.7.2.686 [id number] [facility] 2023-04-28 13:34:07 2023-04-28 13:34:07 Outpatient [facility] [id number] Harjinder Miguel [place] 2023-04-28 00:00:00 2023-04-28 00:00:00 Patient Secure Msg Doctor Unassigned, [place] [facility] 1.2840.114 350.1.13.10 4.2.7.2.686 [id number] [facility] 2023-04-27 13:11:18 2023-04-27 13:11:18 Outpatient [facility] [id number] Harjinder Miguel [place] 2023-04-26 15:36:25 2023-04-26 15:36:25 Outpatient [facility] [id number] Harjinder Miguel [place] 2023-04-26 00:00:00 2023-04-26 00:00:00 Patient Secure Msg Doctor Unassigned, [place] [facility] 1.2840.114 350.1.13.10 4.2.7.2.686 [id number] [facility] 2023-04-23 02:39:00 2023-04-23 15:59:00 Hospital Encounter Low, Milagros Lynch, Taya [facility] 1..840.114 350.1.13.10 4.2.7.2.686 [id number] [facility] 2023-04-23 06:32:00 2023-04-23 07:15:00 Surgery Raphael Ferrell [facility] 1.2.840.114 350.1.13.10 4.2.7.2.686 [id number] [facility] 2023-04-13 11:23:42 2023-04-13 11:23:42 Outpatient SFA SFA [id number] Harjinder Sim 2023-04-08 13:07:05 2023-04-08 13:07:05 Outpatient SFA SFA [id number] Harjinder Sim 2023-03-17 13:57:20 2023-03-17 13:57:20 Outpatient SFA SFA [id number] Harjinder Sim 2023-03-12 13:21:52 2023-03-12 13:21:52 Outpatient SFA SFA [id number] Harjinder Sim 2023-03-11 17:25:34 2023-03-11 17:25:34 Outpatient SFA SFA [id number] Harjinder Sim 2023-01-05 14:12:40 2023-01-05 14:12:40 Outpatient SFA SFA [id number] Harjinder Sim 2022-12-16 14:49:57 2022-12-16 14:49:57 Outpatient SFA SFA [id number] Harjinder Sim 2022-12-12 10:36:01 2022-12-12 10:36:01 Outpatient SFA SFA [id number] Harjinder Sim 2022-12-08 09:20:37 2022-12-08 09:20:37 Outpatient SFA SFA [id number] Harjinder Sim 2021-09-04 13:48:00 2021-09-04 14:44:00 Emergency Deepa Dubois [facility] 1.2.840.114 350.1.13.10 4.2.7.2.686 [id number] [facility] 2021-09-04 13:48:00 2021-09-04 14:44:00 Emergency X DEEPA DUBOIS [facility] ERT [id number] [facility] Results Test Description Test Time Test Comments Results Result Co mments Source [id number] 05:36:01* Test Item Value Reference Range Interpretation Comme nts LDH (test code = 2224) 126 U/L 135-225 L TROPHOBLASTIC [id number] 05:32:10* Test Item Value Reference Range Interpretation Comments TROPHOBLASTIC HCG (test code = 47367) <0.3 MIU/ML <=2.0 Test performed by [employer] Gagan Electrochemiluminescent Immunoassay. UNLESS OTHERWISE INDICATED, ALL TESTING PERFORMED AT [facility] [address] [place] [address] ELECTRICAL UNIT REBUILDER: LIGIA PRABHAKAR M.D. CLIA NUMBER [id number] [place]. [id number] PSA, [id number] 05:42:18* Test Item Value Reference Range Interpretation Comme nts PSA, TOTAL (test code = 2606) 1.69 NG/ML <=4.00 NOTE: Methodolog y is Alexi Gagan Electrochemiluminescence Immunoassay traceable to WHO reference standard 96/760. UNLESS OTHERWISE INDICATED, ALL TESTING PERFORMED AT [facility] [address] [place] [address] ELECTRICAL UNIT REBUILDER: LIGIA PRABHAKAR M.D. CLIA NUMBER [id number] [place]. [id number] PSA, [id number] 00:00:00* Test Item Value Reference Range Interpretation Comme nts PSA, TOTAL (test code = 2606) 1.69 NG/ML Harjinder SimCOMPREHENSIVE METABOLIC [id number] 06:04:18* Test Item Value Reference Range Interpretation Comme nts GLUCOSE (test code = 2217) 146 MG/DL 70-99 H BUN (test code = 2208) 10 MG/DL 8-23 CREATININE (test code = 2214) 1.00 MG/DL 0.80-1.40 eGFR (2020 CKD-EPI) (test co de = 65118) 86 ML/MIN/1.73 >60 CALC BUN/CREAT (test code = 223) 10 RATIO 6-28 SODIUM (test code = 223) 140 MEQ/L 133-146 POTASSIUM (test code = 2227) 4.4 MEQ/L 3.5-5.4 CHLORIDE (test code = 2214) 100 MEQ/L 95-107 CARBON DIOXIDE (test code = 2205) 24 MEQ/L 19-31 CALCIUM (test code = 2208) 9.6 MG/DL 8.5-10.5 PROTEIN, TOTAL (test code = 2228) 7.5 G/DL 6.1-8.3 ALBUMIN (test code = 2200) 4.6 G/DL 3.5-5.2 CALC GLOBULIN (test code = 2239) 2.9 G/DL 1.9-3.7 CALC A/G RATIO (test code = 2233) 1.6 RATIO 1.0-2.6 BILIRUBIN, TOTAL (test code = 2206) 0.3 MG/DL <=1.2 ALKALINE PHOSPHATASE (test code = 2203) 77 U/L 40-123 AST (test code = 221) 17 U/L 9-50 ALT (test code = 2219) 25 U/L 5-50 LIPID [id number] 06:04:18* Test Item Value Reference Range Interpretation Comme nts CHOLESTEROL (test code = 2210) 211 MG/DL <200 H TRIGLYCERIDES (test code = 2232) 225 MG/DL <150 H HDL CHOLESTEROL (test code = 2219) 55 MG/DL >39 CALC LDL CHOL (test code = 2236) 122 MG/DL <100 H NOTE: CALCULATED LDL IS BASED ON PHONG-HEADLEY METHOD WHICHINCLUDES ADJUSTABLE TRIGLYCERIDE:VLDL CHOLESTEROL RATIO.THIS FACTOR VARIES BY MEASURED TRIGLYCERIDE AND NON-HDLCHOLESTEROL CONCENTRATIONS WITH INCREASED CALCULATED LDL SEENIN HIGHER TRIGLYCERIDE OR LOWER NON-HDL SPECIMENS. FOR MOREINFORMATION, SEE CLIENT ANNOUNCEMENT AT [email or web address] RATIO LDL/HDL (test code = 2238) 2.22 RATIO <3.55 HEMOGLOBIN [id number] 02:24:05* Test Item Value Reference Range Interpretation Comme nts HEMOGLOBIN A1c (test code = 25729) 5.7 % 4.2-5.6 H [employer] GUIDELINES FOR HGB A1C: PREDIABETES/INCREASED RISK . . . . . . . 5.7-6.4% DIAGNOSIS OF DIABETES . . . . . . . . . >=6.5% WITH CONFIRMATION OR APPROPRIATE SYMPTOMS NOTE: ASSAY MAY BE AFFECTED BY HEMOGLOBINOPATHIES (SICKLE CELL ANEMIA, S-C DISEASE, OTHERS) OR ARTIFICIALLY LOWERED BY DECREASED RED CELL SURVIVAL (HEMOLYTIC ANEMIAS, BLOOD LOSS, ETC.). CONSIDER ALTERNATE TESTING OR LABORATORY CONSULTATION. UNLESS OTHERWISE INDICATED, ALL TESTING PERFORMED AT [facility] [address] [place] [id number] ELECTRICAL UNIT REBUILDER: LIGIA PRABHAKAR M.D. CLIA NUMBER [id number] [facility] [place]. [id number] CBC W/AUTO DIFF WITH [id number] 01:47:48* Test Item Value Reference Range Interpretation Comme nts WBC (test code = 1001) 5.2 K/UL 3.5-11.0 RBC (test code = 1002) 5.14 M/UL 4.50-6.10 HEMOGLOBIN (test code = 1003) 15.3 G/DL 13.5-17.0 HEMATOCRIT (test code = 1004) 45.4 % 40.0-51.0 MCV (test code = 1005) 88.3 fL 80.0-99.0 MCH (test code = 1006) 29.8 PG 25.0-33.0 MCHC (test code = 1007) 33.7 G/DL 31.0-36.0 RDW (test code = 1038) 12.7 % 11.5-15.0 NEUTROPHILS (test code = 1008) 56.4 % LYMPHOCYTES (test code = 1010) 32.1 % MONOCYTES (test code = 1011) 8.6 % EOSINOPHILS (test code = 1012) 1.7 % BASOPHILS (test code = 1013) 0.8 % IMMATURE GRANULOCYTES (test code = 1036) 0.4 % NUCLEATED RBCS (test code = 1065) 0.0 /100 WBC'S See_Comment [Automated [employer] ge] The system which generated this result transmitted reference range: 0.0. The reference range was not used to interpret this result as normal/abnormal. PLATELET COUNT (test code = 1015) 309 K/UL 130-400 ABSOLUTE NEUTROPHILS (test code = 1066) 2.96 K/UL 1.50-7.50 ABSOLUTE LYMPHOCYTES (test code = 1067) 1.68 K/UL 1.00-4.00 ABSOLUTE MONOCYTES (test code = 1068) 0.45 K/UL 0.20-1.00 ABSOLUTE EOSINOPHILS (test code = 1040) 0.09 K/UL 0.00-0.50 ABSOLUTE BASOPHILS (test code = 1069) 0.04 K/UL 0.00-0.20 ABS IMMATURE GRANULOCYTES (test code = 1020) 0.02 K/UL 0.00-0.10 ABS NUCLEATED RBCS (test code = 32154) 0.00 K/UL 0.00-0.11 CBC W/AUTO [id number] 00:00:00* Test Item Value Reference Range Interpretation Comme nts WBC (test code = 1001) 5.2 K/UL RBC (test code = 1002) 5.14 M/UL HEMOGLOBIN (test code = 1003) 15.3 G/DL HEMATOCRIT (test code = 1004) 45.4 % MCV (test code = 1005) 88.3 fL MCH (test code = 1006) 29.8 PG MCHC (test code = 1007) 33.7 G/DL RDW (test code = 1038) 12.7 % NEUTROPHILS (test code = 1008) 56.4 % LYMPHOCYTES (test code = 1010) 32.1 % MONOCYTES (test code = 1011) 8.6 % EOSINOPHILS (test code = 1012) 1.7 % BASOPHILS (test code = 1013) 0.8 % IMMATURE GRANULOCYTES (test code = 1036) 0.4 % NUCLEATED RBCS (test code = 1065) 0.0 /100WBC'S PLATELET COUNT (test code = 1015) 309 K/UL ABSOLUTE NEUTROPHILS (test c ode = 1066) 2.96 K/UL ABSOLUTE LYMPHOCYTES (test c ode = 1067) 1.68 K/UL ABSOLUTE MONOCYTES (test cod e = 1068) 0.45 K/UL ABSOLUTE EOSINOPHILS (test c ode = 1040) 0.09 K/UL ABSOLUTE BASOPHILS (test cod e = 1069) 0.04 K/UL ABS IMMATURE GRANULOCYTES (t est code = 1020) 0.02 K/UL ABS NUCLEATED RBCS (test cod e = 12885) 0.00 K/UL Harjinder F AustinCOMPREHENSIVE METABOLIC [id number] 00:00:00* Test Item Value Reference Range Interpretation Comme nts GLUCOSE (test code = 2217) 146 MG/DL BUN (test code = 2208) 10 MG/DL CREATININE (test code = 2214) 1.00 MG/DL eGFR (2020 CKD-EPI) (test co de = 09109) 86 ML/MIN/1.73 CALC BUN/CREAT (test code = 2235) 10 RATIO SODIUM (test code = 2231) 140 MEQ/L POTASSIUM (test code = 2228) 4.4 MEQ/L CHLORIDE (test code = 2215) 100 MEQ/L CARBON DIOXIDE (test code = 2206) 24 MEQ/L CALCIUM (test code = 2209) 9.6 MG/DL PROTEIN, TOTAL (test code = 2229) 7.5 G/DL ALBUMIN (test code = 2201) 4.6 G/DL CALC GLOBULIN (test code = 2240) 2.9 G/DL CALC A/G RATIO (test code = 2234) 1.6 RATIO BILIRUBIN, TOTAL (test code = 2207) 0.3 MG/DL ALKALINE PHOSPHATASE (test code = 2204) 77 U/L AST (test code = 2218) 17 U/L ALT (test code = 2219) 25 U/L Harjinder SimLIPID [id number] 00:00:00* Test Item Value Reference Range Interpretation Comme nts CHOLESTEROL (test code = 2210) 211 MG/DL TRIGLYCERIDES (test code = 2232) 225 MG/DL HDL CHOLESTEROL (test code = 2220) 55 MG/DL CALC LDL CHOL (test code = 2237) 122 MG/DL RISK RATIO LDL/HDL (test cod e = 2238) 2.22 RATIO Harjinder SimHEMOGLOBIN [id number] 00:00:00* Test Item Value Reference Range Interpretation Comme nts HEMOGLOBIN A1c (test code = 09081) 5.7 % Harjidner SimCBC W/AUTO [id number] 00:00:00* Test Item Value Reference Range Interpretation Comme nts WBC (test code = 1001) 5.2 K/UL RBC (test code = 1002) 5.14 M/UL HEMOGLOBIN (test code = 1003) 15.3 G/DL HEMATOCRIT (test code = 1004) 45.4 % MCV (test code = 1005) 88.3 fL MCH (test code = 1006) 29.8 PG MCHC (test code = 1007) 33.7 G/DL RDW (test code = 1038) 12.7 % NEUTROPHILS (test code = 1008) 56.4 % LYMPHOCYTES (test code = 1010) 32.1 % MONOCYTES (test code = 1011) 8.6 % EOSINOPHILS (test code = 1012) 1.7 % BASOPHILS (test code = 1013) 0.8 % IMMATURE GRANULOCYTES (test code = 1036) 0.4 % NUCLEATED RBCS (test code = 1065) 0.0 /100WBC'S PLATELET COUNT (test code = 1015) 309 K/UL ABSOLUTE NEUTROPHILS (test c ode = 1066) 2.96 K/UL ABSOLUTE LYMPHOCYTES (test c ode = 1067) 1.68 K/UL ABSOLUTE MONOCYTES (test cod e = 1068) 0.45 K/UL ABSOLUTE EOSINOPHILS (test c ode = 1040) 0.09 K/UL ABSOLUTE BASOPHILS (test cod e = 1069) 0.04 K/UL ABS IMMATURE GRANULOCYTES (t est code = 1020) 0.02 K/UL ABS NUCLEATED RBCS (test cod e = 81152) 0.00 K/UL Harjinder SimCOMPREHENSIVE METABOLIC [id number] 00:00:00* Test Item Value Reference Range Interpretation Comme nts GLUCOSE (test code = 2217) 146 MG/DL BUN (test code = 2208) 10 MG/DL CREATININE (test code = 2214) 1.00 MG/DL eGFR (2020 CKD-EPI) (test co de = 27634) 86 ML/MIN/1.73 CALC BUN/CREAT (test code = 2235) 10 RATIO SODIUM (test code = 2231) 140 MEQ/L POTASSIUM (test code = 2228) 4.4 MEQ/L CHLORIDE (test code = 2215) 100 MEQ/L CARBON DIOXIDE (test code = 2206) 24 MEQ/L CALCIUM (test code = 2209) 9.6 MG/DL PROTEIN, TOTAL (test code = 2229) 7.5 G/DL ALBUMIN (test code = 2201) 4.6 G/DL CALC GLOBULIN (test code = 2240) 2.9 G/DL CALC A/G RATIO (test code = 2234) 1.6 RATIO BILIRUBIN, TOTAL (test code = 2207) 0.3 MG/DL ALKALINE PHOSPHATASE (test code = 2204) 77 U/L AST (test code = 2218) 17 U/L ALT (test code = 2219) 25 U/L Harjinder SimLIPID [id number] 00:00:00* Test Item Value Reference Range Interpretation Comme nts CHOLESTEROL (test code = 2210) 211 MG/DL TRIGLYCERIDES (test code = 2232) 225 MG/DL HDL CHOLESTEROL (test code = 2220) 55 MG/DL CALC LDL CHOL (test code = 2237) 122 MG/DL RISK RATIO LDL/HDL (test cod e = 2238) 2.22 RATIO Harjinder SimHEMOGLOBIN [id number] 00:00:00* Test Item Value Reference Range Interpretation Comme nts HEMOGLOBIN A1c (test code = 14330) 5.7 % Harjinder SimCBC W/AUTO [id number] 00:00:00* Test Item Value Reference Range Interpretation Comme nts WBC (test code = 1001) 5.2 K/UL RBC (test code = 1002) 5.14 M/UL HEMOGLOBIN (test code = 1003) 15.3 G/DL HEMATOCRIT (test code = 1004) 45.4 % MCV (test code = 1005) 88.3 fL MCH (test code = 1006) 29.8 PG MCHC (test code = 1007) 33.7 G/DL RDW (test code = 1038) 12.7 % NEUTROPHILS (test code = 1008) 56.4 % LYMPHOCYTES (test code = 1010) 32.1 % MONOCYTES (test code = 1011) 8.6 % EOSINOPHILS (test code = 1012) 1.7 % BASOPHILS (test code = 1013) 0.8 % IMMATURE GRANULOCYTES (test code = 1036) 0.4 % NUCLEATED RBCS (test code = 1065) 0.0 /100WBC'S PLATELET COUNT (test code = 1015) 309 K/UL ABSOLUTE NEUTROPHILS (test c ode = 1066) 2.96 K/UL ABSOLUTE LYMPHOCYTES (test c ode = 1067) 1.68 K/UL ABSOLUTE MONOCYTES (test cod e = 1068) 0.45 K/UL ABSOLUTE EOSINOPHILS (test c ode = 1040) 0.09 K/UL ABSOLUTE BASOPHILS (test cod e = 1069) 0.04 K/UL ABS IMMATURE GRANULOCYTES (t est code = 1020) 0.02 K/UL ABS NUCLEATED RBCS (test cod e = 95504) 0.00 K/UL Harjinder SimCOMPREHENSIVE METABOLIC [id number] 00:00:00* Test Item Value Reference Range Interpretation Comme nts GLUCOSE (test code = 2217) 146 MG/DL BUN (test code = 2208) 10 MG/DL CREATININE (test code = 2214) 1.00 MG/DL eGFR (2020 CKD-EPI) (test co de = 36996) 86 ML/MIN/1.73 CALC BUN/CREAT (test code = 2235) 10 RATIO SODIUM (test code = 2231) 140 MEQ/L POTASSIUM (test code = 2228) 4.4 MEQ/L CHLORIDE (test code = 2215) 100 MEQ/L CARBON DIOXIDE (test code = 2206) 24 MEQ/L CALCIUM (test code = 2209) 9.6 MG/DL PROTEIN, TOTAL (test code = 2229) 7.5 G/DL ALBUMIN (test code = 2201) 4.6 G/DL CALC GLOBULIN (test code = 2240) 2.9 G/DL CALC A/G RATIO (test code = 2234) 1.6 RATIO BILIRUBIN, TOTAL (test code = 2207) 0.3 MG/DL ALKALINE PHOSPHATASE (test code = 2204) 77 U/L AST (test code = 2218) 17 U/L ALT (test code = 2219) 25 U/L Harjinder SimLIPID [id number] 00:00:00* Test Item Value Reference Range Interpretation Comme nts CHOLESTEROL (test code = 2210) 211 MG/DL TRIGLYCERIDES (test code = 2232) 225 MG/DL HDL CHOLESTEROL (test code = 2220) 55 MG/DL CALC LDL CHOL (test code = 2237) 122 MG/DL RISK RATIO LDL/HDL (test cod e = 2238) 2.22 RATIO Harjinder SimHEMOGLOBIN [id number] 00:00:00* Test Item Value Reference Range Interpretation Comme nts HEMOGLOBIN A1c (test code = 20267) 5.7 % Harjinder SimCBC W/AUTO [id number] 00:00:00* Test Item Value Reference Range Interpretation Comme nts WBC (test code = 1001) 5.2 K/UL RBC (test code = 1002) 5.14 M/UL HEMOGLOBIN (test code = 1003) 15.3 G/DL HEMATOCRIT (test code = 1004) 45.4 % MCV (test code = 1005) 88.3 fL MCH (test code = 1006) 29.8 PG MCHC (test code = 1007) 33.7 G/DL RDW (test code = 1038) 12.7 % NEUTROPHILS (test code = 1008) 56.4 % LYMPHOCYTES (test code = 1010) 32.1 % MONOCYTES (test code = 1011) 8.6 % EOSINOPHILS (test code = 1012) 1.7 % BASOPHILS (test code = 1013) 0.8 % IMMATURE GRANULOCYTES (test code = 1036) 0.4 % NUCLEATED RBCS (test code = 1065) 0.0 /100WBC'S PLATELET COUNT (test code = 1015) 309 K/UL ABSOLUTE NEUTROPHILS (test c ode = 1066) 2.96 K/UL ABSOLUTE LYMPHOCYTES (test c ode = 1067) 1.68 K/UL ABSOLUTE MONOCYTES (test cod e = 1068) 0.45 K/UL ABSOLUTE EOSINOPHILS (test c ode = 1040) 0.09 K/UL ABSOLUTE BASOPHILS (test cod e = 1069) 0.04 K/UL ABS IMMATURE GRANULOCYTES (t est code = 1020) 0.02 K/UL ABS NUCLEATED RBCS (test cod e = 40197) 0.00 K/UL Harjinder F AustinCOMPREHENSIVE METABOLIC [id number] 00:00:00* Test Item Value Reference Range Interpretation Comme nts GLUCOSE (test code = 2217) 146 MG/DL BUN (test code = 2208) 10 MG/DL CREATININE (test code = 2214) 1.00 MG/DL eGFR (2020 CKD-EPI) (test co de = 71231) 86 ML/MIN/1.73 CALC BUN/CREAT (test code = 2235) 10 RATIO SODIUM (test code = 2231) 140 MEQ/L POTASSIUM (test code = 2228) 4.4 MEQ/L CHLORIDE (test code = 2215) 100 MEQ/L CARBON DIOXIDE (test code = 2206) 24 MEQ/L CALCIUM (test code = 2209) 9.6 MG/DL PROTEIN, TOTAL (test code = 2229) 7.5 G/DL ALBUMIN (test code = 2201) 4.6 G/DL CALC GLOBULIN (test code = 2240) 2.9 G/DL CALC A/G RATIO (test code = 2234) 1.6 RATIO BILIRUBIN, TOTAL (test code = 2207) 0.3 MG/DL ALKALINE PHOSPHATASE (test code = 2204) 77 U/L AST (test code = 2218) 17 U/L ALT (test code = 2219) 25 U/L Harjinder SimLIPID [id number] 00:00:00* Test Item Value Reference Range Interpretation Comme nts CHOLESTEROL (test code = 2210) 211 MG/DL TRIGLYCERIDES (test code = 2232) 225 MG/DL HDL CHOLESTEROL (test code = 2220) 55 MG/DL CALC LDL CHOL (test code = 2237) 122 MG/DL RISK RATIO LDL/HDL (test cod e = 2238) 2.22 RATIO Harjinder SimHEMOGLOBIN [id number] 00:00:00* Test Item Value Reference Range Interpretation Comme [facility] HEMOGLOBIN A1c (test code = 80077) 5.7 % Harjinder Miguel [facility] [id number] 17:56:20* Test Item Value Reference Range Interpretation Comme [facility] Case Report (test code = 1091228042) Surgical Pathology ?Case: [id number] ? Authorizing Provider: ?Raphael Ferrell DO ? ? Collected: ? 04/23/2023 0804 ?Ordering Location: ? ? GI Endoscopy OR Department Received: ?04/23/2023 1443 ?Pathologist: ? Joanie Fong MD ? Specimens: ? 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 B) - ESOPHAGUS, Cold biopsy proximal esophagus eval eosinopilic esophagitis ? Final Diagnosis (test code = 4298181473) q3bzqHQlRVJbt6dbVZYzaRL uZzEwMzNcZnRuYmpcdWMxIH wojiYsAJtodUkoYIG9IFVvm 9igp2wqjPWvDOLwk1zdg8Th dHBncGFyXGpleHBhbmRcbm9 7cIT6gF39PB4cLCKvXhQ6ON YqdaL0Blq0TPWpWRYjyVPoK 641i4nfg5ocluAkdIV1zXrf FCCjyqwuSvP0ZMiqFCQrnqb wGSh4GPyiBNPwgYD8FZMbsY LoN0EfGYXjPX3pkcq7QJN9R KwaZNRiIkP2XKXocIGlNGFx rTvnVShft024NLY4YbYeRTH stwWkfw52oHLsjLmjKNJytM eueI9kHpRvHSqkJUZxGZ2mI FPVSKtWI3QOFEKHQMUWFGeu IENPTEQgQklPUFNZOlxwYXJ ty4shH2FieEZhUKWzLICqLO OMXVSOA4KVJVDYUdTWPD9UO 09TQSBXSVRIIElOVFJBRVBJ NRfWLXcWGBIHG8IHXw4ZNAo CTmLaPSOsBD6jYYYFIVAaHI zXOJZLI3hBHgXxbYFvINPqQ CAgICBGSUVMRCBBTkQgTkVV VFJPUEhJTFMsIEFORCBJTkN SRUFTRUQgTFlNUEhPUExBU0 6MW2tAIYEbSW1ZOBuZXlYRD NVXGqPKRG8OHtCtKUBcknTx ZULnDGHqSJLDCBTTYEllY5E BR9OQKHgUGPGYGbOYKPOWDH eeOKWJU5EMVLRJCROVMHZNN 0VTXHBhciAgICAgLSBOTyBJ OiQNK7JZEbNATA6YDSOMOZS TSUEgSURFTlRJRklFRCBccG XpOOYoseAolh44xHNluKwlP ACqnHBuDOqyNUX3nPSzkfQS MgZXG31DDBZUAILtWXHAQ4h NJDWHTJKDF1tTWRACE0VFDU pccGFyICAgICAtIFNRVUFNT 4OXQL7NN78ZXTWFLVRQCTGF F6AJKZZWPSvhHKxFPFKIVAF TSUEsIElOVFJBRVBJVEhFTE dXSHIKP2VWOx5BQSmVVlDhN JNfSM5zMMBsLJZfunXqXZLo HLGePYKFARmBK3maTN3BTAM qXdzHUFDoUFQVIwEsKX1VTr PENHmNCGNEYJGNYQ3GEATOC 1BISUxTXHBhclxwYXJccGFy TDIiIoS8SGIzfSDbfHIdQBw eBUEaFW8tLY97ocSzSVNXCS WxQgXaDtJqXXE0BpUyUOCBO JTlsf28TJZ9AcGfa3I8CCMc HlFfTXAcSO0ggZaiCPXxCQ7 qWKIdS2dcsH8pcsv1YdWrUZ WrOuI4LQGqslW5Mjh0TEHiB Trhj2ngv2DbO4AtxVGghHr5 a5ciBCByRrN2zHEtIMtrT9j riePxuSCmORCmZYc7tFllHp UnHOXot3wcfyMyTfNdSIVtL DRpHHRybAiorkr6fE93NKRv fS6shWLkMNvtseFhVoP9UNr mFPZbEwW2DPHycIFmAXArD0 xyZWQwXGdyZWVuMFxibHVlM PM3zGkpd4A7qFPkqECfoVeu PjFmYnWfRFAPw3EnXSf2oIx vE9UaVHIbEiO1yPEsAXMvLR bbVMLoZVBgiyD2yM47KRubb yH0qQGye6Mke19nf575vI2m hTQhKOJ9THExLBXxxUDbBIF pLHU0MVDxxKPtG8alULGoDL 1umjhpQPdxMBavAVSwgQL3I AFxrEUzX1RcXRXyEQfzOAOu gyi6KwIdLt5lqBNqpJkoOGh ll5irm8picUEpIbm2ZUShBj IcEghbLWnsy7Sme3tvTQMbe y5vZNK5vAMnmLcfo6X9lMWf ZEVtkHElqqIsUEInDwI4EAl qFZ0mdm57LGJdIFH6pm8wyH XemMwrzuWqzEBqHFlmJ0TlT BQyg091GZIgU3ZwYBNlh6E2 eaQtNdQlCCUucRV8fxX7ZPD lVAz7cWEnuoS6rhExdZWhF2 zboG4gHYDaBS3dglsja9aeW FfpEDtpTCWzoHL3ozZ1AFJj jVZnA5UzzB4mGQTzYAyhOLT tcgg8PkNpKx2zjVPboCehVI xzYmtwYWdlXHBnbmNvbnRcc GduZGVjXHBsYWluXHBsYWlu XGYwXGZzMjRccWxccGxhaW5 zMtCxRqPlYFthBZ7bYCCzM7 divCZhKYUlEWTxB9mrYcUvs N6hxCoaQOkxTfJtKgHsQLbh YXIgSSBoYXZlIHBlcnNvbmF xlMvnesL9uMO2MBTrRDukCC AwTZJyvKPrdt4wfVynKVClO K8gVHTtmqIkRZbvgOvnGJoq YOY4FGMsiXXmzCAewAVcDAY ieSByZXNpZGVudHMsIGZlbG eid0Sxu5KeuOP7zT4mh6dnv 3AwOQVyeAR4NH44uwZ5jE9r FJAiMK3sAGPkSL0dkJFhvDA cUKAzl82xbGjflnPvTNMfdb QuXHBsYWluXGYyXGZzMjhcb GFuZzEwMzNcaGljaFxmMlxk WkAfUNCeLMfrM6bfQuKeHiD qJDruWPT4hZ== Clinical Information (test code = 4166817927) 1. Cold biopsy esophagus eval eosinophilic esophagitis2. Cold biopsy proximal esophagus eval eosinopilic esophagitis Gross Description (test code = 7514396720) r7msvZRwFETfjWNWBIT7YWY gFM4noFdeeWo2jCicPXSvpe H6aEBjBUpxi2drTXE7z0zfs uQEDnkcMDDiMO0aLJiePEFb SJ5aBrBzBZQyPhHlRHFktUD fklCoEzLdUVImgQMiwHS5FR NoLW2evixzSPxjELguHHDas iP3SFAofXLjU9PlDPMqOV8f xetzEJY1DXKKZlbzSi0ihRD ibHtcZjFcZmNoYXJzZXQwXG RitUqtXNGjOHc6yQ5DHhkrE RA8EGWGNrvpBenwlHkqc9Fu dCBcXHNnIFxcaWQgNTEwMDA rDMesPiUKSeSnSzMgRWE9JL R1LiJmUFa1GAlcAmMGCWXdT RTzJIFjRQd9LIzyYVioaLZx TATqKFXbZLBmOMjrufG7h2f vXIHqaIOgVWI1MOrvo8liKA dpSMQ7WKMcPvJnZPQwCQ0KM rQsLOPqJyp2TRBzIxA5ZMd5 OSBPVlMgIiAgMjUwNDAzMTY nAAx8SDn8JHeOLnKoUFH3Md AeZCN8JIV7GnN8SPtoqCQzL Stll2QvFtGaWLTpAUgpfgA4 LCXsgeAuYUtenMexfX1iYiR hLZCEZQIZBY6OBnEWUUn7od RnICUpEvSqyHTdTI1FNGSxq nIuBSpzoSvcnQ5kmTEzX9jp ZnMyMlxlcGljTmVzdERvYzE gDQpcbHRycGFyXHNhMzBcZX FyP6esLVIzPS4WS8KtN4fpR A9eHRVoiuUuCVZduGBtCWRd jtXma9UlCWfmlzArJAXdtWr dCYS6nNTbKNYcPULdNEOxJV 50XCdCNHMgbmFtZSwgVUggb nVtYmVyIGBgIGNvbGQgYmlv zAQ0XKDrf0AdqFBfi68kfPA ysGEnNUEljWSrd0Eufa5loA qlbEUtJQMkuStiN3u4mOJuR 6A8GYkMHVPlryNeL75lv9oi fQZam6ThxIQgyWdgiLKqz9R avBOuVZwvfNzyrjFwa4T2GR Tjn6L3JEQkfzAcsLMfePIcG BKpLEX3GEMxSXX6GWMeRBHc kMLxpjGpE0cdBHlatVZlPVJ hbmdpbmcgZnJvbSAwLjEtMC 3vQZQpYQxmXPswDXS0SKJ5I XVspSLuz0lzivbsUZUgEQOu jZEamU8yfuNtroAwkVb6IFH fPVC8jLMqtGguBZZoHfrxhG P5VLAvEfPabtXvk3OjcGm4a GBkSHujWTChjV8tmM4jDKOx FIhfRJZiS63gy7ZEv1Ryp4v xyHapz7NipEDiQS9skQDwZM 2Vz8wyYSMhpHGkSFN5SAijn 2goBRcaITP1ZLYiBhFwAFQw AW1ENrTtAFNcPre2ARWbSxK 4ASh9YYOUIuXuMwRjVvBmKW QaCGqfZEf4XRk5UWbKMyFtH WJ9WwRtDgDhPPV1BdQ2ACvh aQOoZWbzw4KlCuWeXUOiLFd wvjD0DKUeoaYlo7UaQECpNH DlN4dkNdObRWEXNaykeeStC FNQRUNJTUVOIEJcZnMyMlxw YXIgDQpccGFyZCANClxwbGF pblxsdHJjaFxmczIyXGVwaW VXQMM9JN6zNDDBJtztzCIkZ VXwp9MwWTqigNozFFUrViRe ZAqMwHExtU5nktRRTZyeTVU aQ0JofaJeWAsbVKMyra4uuS luIGxhYmVsbGVkIHdpdGggd KkiJFFugCmbiuBeB1K4cxEc VA5sMOWSAEYtsL6jCEJnSQJ zC70bPFRwkD0dp1zetCNapW bvDApdDYTroJghH4VqEVP7W KblJA7fwY4wiOhppErkQWQv b3KvWVkggNxrEMoIXUofFaL dLI3oRVOwclRwt1HbAR4aOL 37cISewZbySSAzxv19dCn7I DDvz4O6POVeg6V0PGOuvpKt xWYzlYXxOFYpING6LPCjAwZ jdKVyPLEhLALmYY9vFK6yAY LbHUpvUEJzL5XoC5L2XAzmq eLwA9yhAeGkwc5oADsqd5Fk mCuqtfYsAtWhRS8bAGHuUIu bIWtjHCM1XVL2CJYqdAOou9 tutyocEYOpHEAasSBgqT1iz fZmbdYpgAk4KSSfPID2yYBd rBfaIKHhTwgvjET3UEGqDnG jrnHmp1NgoRf3yJXmIVszPD OmrE8ioP2uWvGpAZBkfpSET uygEDUmVFi4lnKifxSSFhlf XIHpIZius9WlTEhviNxoEIL dVmKxXDeUkRugNDK8VGIfdC 5jZSBIVEwoQVNDUCkNClxlc QqhMwSuxRJaDxX4UVKsmPUy GJO1BB0ksEurHUOwA2WvT5L nnmI6KNEpwhYQCyxwKJMcQQ 0KfQ== Disclaimer (test code = [id number]) r4uouGPoZAJio0wkNMKxuBB uZzEwMzNcZnRuYmpcdWMxIH vkseYwSKenv6TdW8UyImEvX FxhbnNpXGRlZmxhbmcxMDMz ISX3omMuLUByHOvmYHXsJDg kQq6vmSLpbDohZaYrCFUxz9 uymwLCSZyoJrQfT574JKBsV Fpzy5rnk7VdDDYafGKty6B7 NOXCurbpnMy5bSarD36zq9G 4TgueB5knSDZoKFQsW0QrSK 8qVSOfAtm3OCK4DAL6PPIwT MCoT5BeJR0kZLTwiWOuQYl9 y9lztZfbDSPaVCF4t8crDNw fbsCwQG3yaj6mzYr2g1urdb VjNHKhQTZpeSQYCZPpU6Psj FyvBl6ieHy0jHvoQkatUHQ4 Xgl7II5xyc28moo8vRksRZS xrzecWyE0IHvhRDCfynskCP e7YZbxXYOslWI9HYMeyGMgV 6EaRCJfIY5lcgs2OCH7DEsp BRUrChS4CGUwaFZuDERxdPd aVUubk049BKD3IhDwAM0pZ1 Ctk1N9qK3ntXGpXFEmcHDlP fHwSZHout4gzKCbFCafs0Gl JJK2qiC7fDVaeSZzUIEjCY9 7Fgtiu9RzPgslm2AfR59eiD M8LCayg5psXA9nMwY2aeLeM Sqim5tqpA8xJkB2GDgzJE3n UP7qBKFdoA6poxlkIAXbHlR plhwkOGXkpCrytuCvVv9opB gfFNW6STljY8vkhP4yQjO8O FmyP3bhtZ1aFBu3ABghrPV7 GDJekH6uUP9rupvzl2rbREk tHMkcYSMimzK4udW1QJDbgT JdM5FbvT5vUYBiBB5omzebk 3zzXEU2ARwzMKQoQDE3XsKk HIAgk4Glgaq0EgYym9QdxTL oPGmaX66kv527CWJmcsAoC1 xwbGFpblxwbGFpblxmMFxmc dT1JJIusaXkm2CrFTEmHQH8 HRolYQkzqWZkZNWbyUddj1e kP3DgxBDuLOVuGEehZQUcDQ ZzMjBcbGFuZzEwMzNcaGlja ZdhKAmdFdBoINWhFXeyD4ao DfRqF6ZkPGPtAtHisPUlA2e gFKkkwjCuOSUcjzJbjAH9UZ cpU0y8LTBztdLlqIf3nrLjH sBcZVTzVQO1RCarvZGaSJKe m8WagnxofEXzTp6gtJUbEJP lqJ7yXIOuNBZmPTyyIF8cfK f9EYJPgKVemFVoLkBMYKUvZ O95ypEgBEZQibkqs2H2GRlt BKKhy5WicSUlH5hzp5FvRFV cq62mIQ7cl5M5t2lqDQK6DM 0sg6VeIKHqsWPjlLDgHMHdm 0Ukapbqs4OnCJJrlfRlo3Tn ZCBhbmQgaXRzIHBlcmZvcm1 whoOxXPVyYAHdV4SkxsqjuJ olavMaYTEycm9rnmHyCZX6Z MFLTHUbGHYdh1ThkR4dhYLA AXW0fAUgqb2vcbRTrRHgKEO sfl55ESTtBN3nR7ydIHUpWD LrkrSoqSNla4PcJWMngEU1n PPpXG3FWmFCu74fOPNtEUUY usYnZXRudIeojIU4elC0mB2 uIChGREEpLlx+IFRoZSBGRE XtWX2nhwEbb4WxddBdbCpdS BVewYEyv9NhoFDxr3AgdCwq k6WxcZTtyRCxDV0lSVEyavm gKANrPBECQwQWZEAxcpV2s0 HaGTQfBAWtJHH8lDbohcw3O SSzrX0aPPYbE1ucoipxLNgu GMDds1HwfK1oyHQZcRNwa1B jfXJuuQQRgSByDY4qalHlKB qSIAxWECE8qcBlQZIoc5HqH JeuC9bdX28ftNneyUz4xIF9 NRL1dC0lAuj+IFxwYXJccGF yIEFwcHJvcHJpYXRlbHkgcm YdZ0YcalGziA1rrCRdtzSeR Q6gNN6bY5F5zURnYVEpbwUi d0iqFIctfzWcXjDgtnAuUUX qLAfhFOQgo9CjZHliYXO7BS lucyBpbmNsdWRpbmcgSCZFL VUEhWElzLGfWVD3DZmcreKr ftMpBS9jrK9urQhenO8yuEE nzEW5najmQIGeFFHudAjhBC YdGM9zmMxsdD9lYaOgNnVgV JjhQP9sOSRhP8iexJAuYJWx VXFiI2ioGjOdqF1aoXukINx jZjJcZnMyMFxwYXJccGFyXH BsYWluXGYxXGZzMjBcbGFuZ zEwMzNcaGljaFxmMVxkYmNo NSZnBBmxR0ktEbHzY6PhRKB mBmMzqAXvL5upBNsdAIZ3WL XlBE0mdCKuUE92hPQtj9npM IvstNxkdl4sA26dxULoDMcc nHeuYWQvv49zo2NjLOAtbwC nre4lCYJpkjM8gV6aSMSklC jiOZZksIJjQBZev8DtEGxds XRpemVkIGdsYXNzIHNsaWRl zeF1nwXwfaIsgaNyNYMujXo kNRMjh7VpCQOiMJslc7Fxmh 5ccGFyXHBhciBBbGwgdGVja A2yE3MtUZNmZGBwoo3wYLIj bO7tYFxpj6DenrsvCJChLIV eQOCfudCmui9rYGZxnLTZDL 2SPHivyNDdj0QgtsVxI4tIN QY1TWMcBgTlGxgxCIUbuZCy zGHxFQSuex26CJXvtR9gvXq iWINocP4jbB8woVtzeV4oKf XxFlQyXDylKL3gGTJxU5pyk UGrLRAqMPRsW0duXaFhfN1a aFxmMVxjZjJcZnMyMFxwYXJ 9fQ== Embedded Images (test code = [id number]) [id number] 12:55:20* Test Item Value Reference Range Interpretation Comme [facility] D-DIMER (test code = 1405) <0.27 UG/ML FEU <=0.49 NOTE: Provided reference range is established for evaluation of Deep Venous Thrombosis/Pulmonary Embolus (DVT/PE). Results below cutoff value of <=0.49 UG/ML FEU have a high negative predictive value forDVT/PE. No reference range is established for disseminatedintra-vasc ular coagulation (DIC). WE-[id number] 09:23:11* Test Item Value Reference Range Interpretation Comme [facility] NT-proBNP (test code = 78203) 93 PG/ML SEE BELOW If NT-ProBNP is less than 300 PG/ML, heart failure is unlikely for allages. Age.................Heart Failure Likely <50 Years...........>=450 PG/ML 50-75 Years.........>=900 PG/ML > 75 Years..........>=1800 PG/ML Methodology: Alexi Gagan Electrochemiluminescense Immunoassay UNLESS OTHERWISE INDICATED, ALL TESTING PERFORMED AT [facility] [address] [place] [id number] [employer]LECT[employer] REBUILDER: LIGIA PRABHAKAR M.D. [place] NUMBER [id number] [facility] [place]. [id number] CBC W/AUTO DIFF WITH [id number] 01:39:38* Test Item Value Reference Range Interpretation [...] = 1065) 0.0 /100 WBC'S See_Comment [Automated [employer] ge] The system which generated this result [...] 0.00-0.10 ABS NUCLEATED RBCS (test code = 98287) 0.00 K/UL 0.00-0.11 CBC W/AUTO [id number] 00:00:00* Test Item Value Reference Range Interpretation Comme nts WBC (test code = 1001) 5.7 K/UL RBC (test code = 1002) 5.06 M/UL HEMOGLOBIN (test code = 1003) 15.4 G/DL HEMATOCRIT (test code = 1004) 44.3 % MCV (test code = 1005) 87.5 fL MCH (test code = 1006) 30.4 PG MCHC (test code = 1007) 34.8 G/DL RDW (test code = 1038) 12.3 % NEUTROPHILS (test code = 1008) 51.4 % LYMPHOCYTES (test code = 1010) 34.1 % MONOCYTES (test code = 1011) 9.0 % EOSINOPHILS (test code = 1012) 4.6 % BASOPHILS (test code = 1013) 0.7 % IMMATURE GRANULOCYTES (test code = 1036) 0.2 % NUCLEATED RBCS (test code = 1065) 0.0 /100WBC'S PLATELET COUNT (test code = 1015) 288 K/UL ABSOLUTE NEUTROPHILS (test c ode = 1066) 2.93 K/UL ABSOLUTE LYMPHOCYTES (test c ode = 1067) 1.94 K/UL ABSOLUTE MONOCYTES (test cod e = 1068) 0.51 K/UL ABSOLUTE EOSINOPHILS (test c ode = 1040) 0.26 K/UL ABSOLUTE BASOPHILS (test cod e = 1069) 0.04 K/UL ABS IMMATURE GRANULOCYTES (t est code = 1020) 0.01 K/UL ABS NUCLEATED RBCS (test cod e = 69556) 0.00 K/UL Harjinder Miguel UroskzR-[id number] 00:00:00* Test Item Value Reference Range Interpretation Comme nts D-DIMER (test code = 1405) <0.27 UG/MLFEU Harjinder Miguel DophgiAD-[id number] 00:00:00* Test Item Value Reference Range Interpretation Comme nts NT-proBNP (test code = 31576) 93 PG/ML Harjinder Miguel AustinCBC W/AUTO [id number] 00:00:00* Test Item Value Reference Range Interpretation Comme nts WBC (test code = 1001) 5.7 K/UL RBC (test code = 1002) 5.06 M/UL HEMOGLOBIN (test code = 1003) 15.4 G/DL HEMATOCRIT (test code = 1004) 44.3 % MCV (test code = 1005) 87.5 fL MCH (test code = 1006) 30.4 PG MCHC (test code = 1007) 34.8 G/DL RDW (test code = 1038) 12.3 % NEUTROPHILS (test code = 1008) 51.4 % LYMPHOCYTES (test code = 1010) 34.1 % MONOCYTES (test code = 1011) 9.0 % EOSINOPHILS (test code = 1012) 4.6 % BASOPHILS (test code = 1013) 0.7 % IMMATURE GRANULOCYTES (test code = 1036) 0.2 % NUCLEATED RBCS (test code = 1065) 0.0 /100WBC'S PLATELET COUNT (test code = 1015) 288 K/UL ABSOLUTE NEUTROPHILS (test c ode = 1066) 2.93 K/UL ABSOLUTE LYMPHOCYTES (test c ode = 1067) 1.94 K/UL ABSOLUTE MONOCYTES (test cod e = 1068) 0.51 K/UL ABSOLUTE EOSINOPHILS (test c ode = 1040) 0.26 K/UL ABSOLUTE BASOPHILS (test cod e = 1069) 0.04 K/UL ABS IMMATURE GRANULOCYTES (t est code = 1020) 0.01 K/UL ABS NUCLEATED RBCS (test cod e = 87061) 0.00 K/UL Harjinder SimYvxseiC-[id number] 00:00:00* Test Item Value Reference Range Interpretation Comme nts D-DIMER (test code = 1405) <0.27 UG/MLFEU Harjinder Miguel LcgqtuJK-[id number] 00:00:00* Test Item Value Reference Range Interpretation Comme nts NT-proBNP (test code = 50329) 93 PG/ML Harjinder SimCBC W/AUTO [id number] 00:00:00* Test Item Value Reference Range Interpretation Comme nts WBC (test code = 1001) 5.7 K/UL RBC (test code = 1002) 5.06 M/UL HEMOGLOBIN (test code = 1003) 15.4 G/DL HEMATOCRIT (test code = 1004) 44.3 % MCV (test code = 1005) 87.5 fL MCH (test code = 1006) 30.4 PG MCHC (test code = 1007) 34.8 G/DL RDW (test code = 1038) 12.3 % NEUTROPHILS (test code = 1008) 51.4 % LYMPHOCYTES (test code = 1010) 34.1 % MONOCYTES (test code = 1011) 9.0 % EOSINOPHILS (test code = 1012) 4.6 % BASOPHILS (test code = 1013) 0.7 % IMMATURE GRANULOCYTES (test code = 1036) 0.2 % NUCLEATED RBCS (test code = 1065) 0.0 /100WBC'S PLATELET COUNT (test code = 1015) 288 K/UL ABSOLUTE NEUTROPHILS (test c ode = 1066) 2.93 K/UL ABSOLUTE LYMPHOCYTES (test c ode = 1067) 1.94 K/UL ABSOLUTE MONOCYTES (test cod e = 1068) 0.51 K/UL ABSOLUTE EOSINOPHILS (test c ode = 1040) 0.26 K/UL ABSOLUTE BASOPHILS (test cod e = 1069) 0.04 K/UL ABS IMMATURE GRANULOCYTES (t est code = 1020) 0.01 K/UL ABS NUCLEATED RBCS (test cod e = 59080) 0.00 K/UL Harjinder SimLtqasdW-[id number] 00:00:00* Test Item Value Reference Range Interpretation Comme nts D-DIMER (test code = 1405) <0.27 UG/MLFEU Harjinder Miguel SvfpbqLZ-[id number] 00:00:00* Test Item Value Reference Range Interpretation Comme nts NT-proBNP (test code = 65508) 93 PG/ML Harjinder SimCBC W/AUTO [id number] 00:00:00* Test Item Value Reference Range Interpretation Comme nts WBC (test code = 1001) 5.7 K/UL RBC (test code = 1002) 5.06 M/UL HEMOGLOBIN (test code = 1003) 15.4 G/DL HEMATOCRIT (test code = 1004) 44.3 % MCV (test code = 1005) 87.5 fL MCH (test code = 1006) 30.4 PG MCHC (test code = 1007) 34.8 G/DL RDW (test code = 1038) 12.3 % NEUTROPHILS (test code = 1008) 51.4 % LYMPHOCYTES (test code = 1010) 34.1 % MONOCYTES (test code = 1011) 9.0 % EOSINOPHILS (test code = 1012) 4.6 % BASOPHILS (test code = 1013) 0.7 % IMMATURE GRANULOCYTES (test code = 1036) 0.2 % NUCLEATED RBCS (test code = 1065) 0.0 /100WBC'S PLATELET COUNT (test code = 1015) 288 K/UL ABSOLUTE NEUTROPHILS (test c ode = 1066) 2.93 K/UL ABSOLUTE LYMPHOCYTES (test c ode = 1067) 1.94 K/UL ABSOLUTE MONOCYTES (test cod e = 1068) 0.51 K/UL ABSOLUTE EOSINOPHILS (test c ode = 1040) 0.26 K/UL ABSOLUTE BASOPHILS (test cod e = 1069) 0.04 K/UL ABS IMMATURE GRANULOCYTES (t est code = 1020) 0.01 K/UL ABS NUCLEATED RBCS (test cod e = 60099) 0.00 K/UL Harjinder Miguel MbowdhV-[id number] 00:00:00* Test Item Value Reference Range Interpretation Comme nts D-DIMER (test code = 1405) <0.27 UG/MLFEU Harjinder Miguel UzhqltMW-[id number] 00:00:00* Test Item Value Reference Range Interpretation Comme nts NT-proBNP (test code = 86129) 93 PG/ML Harjinder Miguel RoneyCBC W/AUTO [id number] 00:00:00* Test Item Value Reference Range Interpretation Comme nts WBC (test code = 1001) 5.7 K/UL RBC (test code = 1002) 5.06 M/UL HEMOGLOBIN (test code = 1003) 15.4 G/DL HEMATOCRIT (test code = 1004) 44.3 % MCV (test code = 1005) 87.5 fL MCH (test code = 1006) 30.4 PG MCHC (test code = 1007) 34.8 G/DL RDW (test code = 1038) 12.3 % NEUTROPHILS (test code = 1008) 51.4 % LYMPHOCYTES (test code = 1010) 34.1 % MONOCYTES (test code = 1011) 9.0 % EOSINOPHILS (test code = 1012) 4.6 % BASOPHILS (test code = 1013) 0.7 % IMMATURE GRANULOCYTES (test code = 1036) 0.2 % NUCLEATED RBCS (test code = 1065) 0.0 /100WBC'S PLATELET COUNT (test code = 1015) 288 K/UL ABSOLUTE NEUTROPHILS (test c ode = 1066) 2.93 K/UL ABSOLUTE LYMPHOCYTES (test c ode = 1067) 1.94 K/UL ABSOLUTE MONOCYTES (test cod e = 1068) 0.51 K/UL ABSOLUTE EOSINOPHILS (test c ode = 1040) 0.26 K/UL ABSOLUTE BASOPHILS (test cod e = 1069) 0.04 K/UL ABS IMMATURE GRANULOCYTES (t est code = 1020) 0.01 K/UL ABS NUCLEATED RBCS (test cod e = 87799) 0.00 K/UL Harjinder SimGfrgsaZ-[id number] 00:00:00* Test Item Value Reference Range Interpretation Comme nts D-DIMER (test code = 1405) <0.27 UG/MLFEU Harjinder Miguel PvxrfdGP-[id number] 00:00:00* Test Item Value Reference Range Interpretation Comme nts NT-proBNP (test code = 31973) 93 PG/ML Harjinder Miguel RoneyCBC W/AUTO [id number] 00:00:00* Test Item Value Reference Range Interpretation Comme nts WBC (test code = 1001) 5.7 K/UL RBC (test code = 1002) 5.06 M/UL HEMOGLOBIN (test code = 1003) 15.4 G/DL HEMATOCRIT (test code = 1004) 44.3 % MCV (test code = 1005) 87.5 fL MCH (test code = 1006) 30.4 PG MCHC (test code = 1007) 34.8 G/DL RDW (test code = 1038) 12.3 % NEUTROPHILS (test code = 1008) 51.4 % LYMPHOCYTES (test code = 1010) 34.1 % MONOCYTES (test code = 1011) 9.0 % EOSINOPHILS (test code = 1012) 4.6 % BASOPHILS (test code = 1013) 0.7 % IMMATURE GRANULOCYTES (test code = 1036) 0.2 % NUCLEATED RBCS (test code = 1065) 0.0 /100WBC'S PLATELET COUNT (test code = 1015) 288 K/UL ABSOLUTE NEUTROPHILS (test c ode = 1066) 2.93 K/UL ABSOLUTE LYMPHOCYTES (test c ode = 1067) 1.94 K/UL ABSOLUTE MONOCYTES (test cod e = 1068) 0.51 K/UL ABSOLUTE EOSINOPHILS (test c ode = 1040) 0.26 K/UL ABSOLUTE BASOPHILS (test cod e = 1069) 0.04 K/UL ABS IMMATURE GRANULOCYTES (t est code = 1020) 0.01 K/UL ABS NUCLEATED RBCS (test cod e = 87565) 0.00 K/UL Harjinder SimMubgvcH-[id number] 00:00:00* Test Item Value Reference Range Interpretation Comme nts D-DIMER (test code = 1405) <0.27 UG/MLFEU Harjinder SimMnlsamXT-[id number] 00:00:00* Test Item Value Reference Range Interpretation Comme nts NT-proBNP (test code = 76867) 93 PG/ML Harjinder SimCBC W/AUTO [id number] 00:00:00* Test Item Value Reference Range Interpretation Comme nts WBC (test code = 1001) 5.7 K/UL RBC (test code = 1002) 5.06 M/UL HEMOGLOBIN (test code = 1003) 15.4 G/DL HEMATOCRIT (test code = 1004) 44.3 % MCV (test code = 1005) 87.5 fL MCH (test code = 1006) 30.4 PG MCHC (test code = 1007) 34.8 G/DL RDW (test code = 1038) 12.3 % NEUTROPHILS (test code = 1008) 51.4 % LYMPHOCYTES (test code = 1010) 34.1 % MONOCYTES (test code = 1011) 9.0 % EOSINOPHILS (test code = 1012) 4.6 % BASOPHILS (test code = 1013) 0.7 % IMMATURE GRANULOCYTES (test code = 1036) 0.2 % NUCLEATED RBCS (test code = 1065) 0.0 /100WBC'S PLATELET COUNT (test code = 1015) 288 K/UL ABSOLUTE NEUTROPHILS (test c ode = 1066) 2.93 K/UL ABSOLUTE LYMPHOCYTES (test c ode = 1067) 1.94 K/UL ABSOLUTE MONOCYTES (test cod e = 1068) 0.51 K/UL ABSOLUTE EOSINOPHILS (test c ode = 1040) 0.26 K/UL ABSOLUTE BASOPHILS (test cod e = 1069) 0.04 K/UL ABS IMMATURE GRANULOCYTES (t est code = 1020) 0.01 K/UL ABS NUCLEATED RBCS (test cod e = 11122) 0.00 K/UL Harjinder SimSoqtkuH-[id number] 00:00:00* Test Item Value Reference Range Interpretation Comme nts D-DIMER (test code = 1405) <0.27 UG/MLFEU Harjinder SimXlvguyJF-[id number] 00:00:00* Test Item Value Reference Range Interpretation Comme nts NT-proBNP (test code = 84772) 93 PG/ML Harjinder SimHEPATITIS PANEL, [id number] 05:08:06* Test Item Value Reference Range Interpretation [...] A. INTERPRETATION HEPATITIS B: (test code = 62868) (NOTE) Hepatitis B sero logy shows no evidence of past exposure to orcurrent infection with hepatitis B virus. No evidence of hepatitis Bimmunization is identified. INTERPRETATION HEPATITIS C: (test code = 03408) (NOTE) Hepatitis C sero logy shows no evidence of exposure to hepatitisC virus at this time. It can take up to 12 months after exposure tothe hepatitis C virus for antibodies to become detectable in the blood in certain patients. HIV 1/2 4TH GEN, RFLX [id number] 05:08:06* Test Item Value Reference Range Interpretation Comme nts HIV 1/2 4TH GEN, RFLX CONF (test code = 3514) NON-REACTIVE NON-REACTIVE UNLESS OTHERWISE INDICATED, ALL TESTING PERFORMED AT [facility] 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 CLIA NUMBER [id number] [facility] [place] [place]. [id number] HEPATITIS PROFILE (A,B,C)2023-01-06 00:00:00* Test Item Value Reference Range Interpretation Comme nts HEPATITIS A TOTAL AB (test c ode = 2725) NON-REACTIVE HEPATITIS B SURF AG (test co de = 2739) NON-REACTIVE HEP B CORE TOTAL AB (test co de = 2729) NON-REACTIVE HEPATITIS B SURFACE AB (test code = 2737) NON-REACTIVE HEPATITIS C ANTIBODY (test c ode = 4675) NON-REACTIVE INTERPRETATION HEPATITIS A: (test code = 2552) (NOTE) INTERPRETATION HEPATITIS B: (test code = 37736) (NOTE) INTERPRETATION HEPATITIS C: (test code = 08014) (NOTE) Harjinder SimHIV 1/2 4TH GEN, RFLX [id number] 00:00:00* Test Item Value Reference Range Interpretation Comme nts HIV 1/2 4TH GEN, RFLX CONF ( test code = 3514) NON-REACTIVE Harjinder Miguel AustinHEPATITIS PROFILE (A,B,C)2023-01-06 00:00:00* Test Item Value Reference Range Interpretation Comme nts HEPATITIS A TOTAL AB (test c ode = 2725) NON-REACTIVE HEPATITIS B SURF AG (test co de = 2739) NON-REACTIVE HEP B CORE TOTAL AB (test co de = 2729) NON-REACTIVE HEPATITIS B SURFACE AB (test code = 2737) NON-REACTIVE HEPATITIS C ANTIBODY (test c ode = 4675) NON-REACTIVE INTERPRETATION HEPATITIS A: (test code = 2552) (NOTE) INTERPRETATION HEPATITIS B: (test code = 47229) (NOTE) INTERPRETATION HEPATITIS C: (test code = 47973) (NOTE) Harjinder Miguel AustinHIV 1/2 4TH GEN, RFLX [id number] 00:00:00* Test Item Value Reference Range Interpretation Comme nts HIV 1/2 4TH GEN, RFLX CONF ( test code = 3514) NON-REACTIVE Harjinder F AustinHEPATITIS PROFILE (A,B,C)2023-01-06 00:00:00* Test Item Value Reference Range Interpretation Comme nts HEPATITIS A TOTAL AB (test c ode = 2725) NON-REACTIVE HEPATITIS B SURF AG (test co de = 2739) NON-REACTIVE HEP B CORE TOTAL AB (test co de = 2729) NON-REACTIVE HEPATITIS B SURFACE AB (test code = 2737) NON-REACTIVE HEPATITIS C ANTIBODY (test c ode = 4675) NON-REACTIVE INTERPRETATION HEPATITIS A: (test code = 2552) (NOTE) INTERPRETATION HEPATITIS B: (test code = 34720) (NOTE) INTERPRETATION HEPATITIS C: (test code = 79657) (NOTE) Harjinder SimHIV 1/2 4TH GEN, RFLX [id number] 00:00:00* Test Item Value Reference Range Interpretation Comme nts HIV 1/2 4TH GEN, RFLX CONF ( test code = 3514) NON-REACTIVE Harjinder Miguel AustinHEPATITIS PROFILE (A,B,C)2023-01-06 00:00:00* Test Item Value Reference Range Interpretation Comme nts HEPATITIS A TOTAL AB (test c ode = 2725) NON-REACTIVE HEPATITIS B SURF AG (test co de = 2739) NON-REACTIVE HEP B CORE TOTAL AB (test co de = 2729) NON-REACTIVE HEPATITIS B SURFACE AB (test code = 2737) NON-REACTIVE HEPATITIS C ANTIBODY (test c ode = 4675) NON-REACTIVE INTERPRETATION HEPATITIS A: (test code = 2552) (NOTE) INTERPRETATION HEPATITIS B: (test code = 11981) (NOTE) INTERPRETATION HEPATITIS C: (test code = 83683) (NOTE) Harjinder SimHIV 1/2 4TH GEN, RFLX [id number] 00:00:00* Test Item Value Reference Range Interpretation Comme nts HIV 1/2 4TH GEN, RFLX CONF ( test code = 3514) NON-REACTIVE Harjinder Miguel AustinHEPATITIS PROFILE (A,B,C)2023-01-06 00:00:00* Test Item Value Reference Range Interpretation Comme nts HEPATITIS A TOTAL AB (test c ode = 2725) NON-REACTIVE HEPATITIS B SURF AG (test co de = 2739) NON-REACTIVE HEP B CORE TOTAL AB (test co de = 2729) NON-REACTIVE HEPATITIS B SURFACE AB (test code = 2737) NON-REACTIVE HEPATITIS C ANTIBODY (test c ode = 4675) NON-REACTIVE INTERPRETATION HEPATITIS A: (test code = 2552) (NOTE) INTERPRETATION HEPATITIS B: (test code = 59129) (NOTE) INTERPRETATION HEPATITIS C: (test code = 26795) (NOTE) Harjinder SimHIV 1/2 4TH GEN, RFLX [id number] 00:00:00* Test Item Value Reference Range Interpretation Comme nts HIV 1/2 4TH GEN, RFLX CONF ( test code = 3514) NON-REACTIVE Harjinder Miguel AustinHEPATITIS PROFILE (A,B,C)2023-01-06 00:00:00* Test Item Value Reference Range Interpretation Comme nts HEPATITIS A TOTAL AB (test c ode = 2725) NON-REACTIVE HEPATITIS B SURF AG (test co de = 2739) NON-REACTIVE HEP B CORE TOTAL AB (test co de = 2729) NON-REACTIVE HEPATITIS B SURFACE AB (test code = 2737) NON-REACTIVE HEPATITIS C ANTIBODY (test c ode = 4675) NON-REACTIVE INTERPRETATION HEPATITIS A: (test code = 2552) (NOTE) INTERPRETATION HEPATITIS B: (test code = 85029) (NOTE) INTERPRETATION HEPATITIS C: (test code = 70974) (NOTE) Harjinder SimHIV 1/2 4TH GEN, RFLX [id number] 00:00:00* Test Item Value Reference Range Interpretation Comme nts HIV 1/2 4TH GEN, RFLX CONF ( test code = 3514) NON-REACTIVE Harjinder Miguel AustinHEPATITIS PROFILE (A,B,C)2023-01-06 00:00:00* Test Item Value Reference Range Interpretation Comme nts HEPATITIS A TOTAL AB (test c ode = 2725) NON-REACTIVE HEPATITIS B SURF AG (test co de = 2739) NON-REACTIVE HEP B CORE TOTAL AB (test co de = 2729) NON-REACTIVE HEPATITIS B SURFACE AB (test code = 2737) NON-REACTIVE HEPATITIS C ANTIBODY (test c ode = 4675) NON-REACTIVE INTERPRETATION HEPATITIS A: (test code = 2552) (NOTE) INTERPRETATION HEPATITIS B: (test code = 99981) (NOTE) INTERPRETATION HEPATITIS C: (test code = 33113) (NOTE) Harjinder SimHIV 1/2 4TH GEN, RFLX [id number] 00:00:00* Test Item Value Reference Range Interpretation Comme nts HIV 1/2 4TH GEN, RFLX CONF ( test code = 3514) NON-REACTIVE Harjinder F AustinCK, [id number] 01:13:05* Test Item Value Reference Range Interpretation Comme nts CK, TOTAL (test code = 2013) 163 U/L 31-336 [id number] 01:13:05* Test Item Value Reference Range Interpretation Comme nts MAGNESIUM (test code = 2226) 2.3 MG/DL 1.6-2.6 UNLESS OTHERWISE INDICATED, ALL TESTING PERFORMED AT [facility] [address] [place] [id number] ELECTRICAL UNIT REBUILDER: LIGIA PRABHAKAR M.D. CLIA NUMBER [id number] [facility] [place]. [id number] COMPREHENSIVE METABOLIC [id number] 01:12:48* Test Item Value Reference Range Interpretation Comme nts GLUCOSE (test code = 2217) 110 MG/DL 70-99 H BUN (test code = 2207) 16 MG/DL 6-20 CREATININE (test code = 221) 1.16 MG/DL 0.80-1.40 eGFR (2020 CKD-EPI) (test code = 44826) 73 ML/MIN/1.73 >60 CALC BUN/CREAT (test code = 2235) 14 RATIO 6-28 SODIUM (test code = 223) 140 MEQ/L 133-146 POTASSIUM (test code = 2228) 4.5 MEQ/L 3.5-5.4 CHLORIDE (test code = 2215) 101 MEQ/L 95-107 CARBON DIOXIDE (test code = 2206) 24 MEQ/L 19-31 CALCIUM (test code = 2209) 9.7 MG/DL 8.5-10.5 PROTEIN, TOTAL (test code = 222) 7.5 G/DL 6.1-8.3 ALBUMIN (test code = 2201) 5.0 G/DL 3.5-5.2 CALC GLOBULIN (test code = 2240) 2.5 G/DL 1.9-3.7 CALC A/G RATIO (test code = 2234) 2.0 RATIO 1.0-2.6 BILIRUBIN, TOTAL (test code = 2207) 0.3 MG/DL See_Comment [Automated me ssage] The system which generated this result transmitted reference range: <=1.2. The reference range was not used to interpret this result as normal/abnormal. ALKALINE PHOSPHATASE (test code = 2203) 78 U/L 40-123 AST (test code = 2218) 18 U/L 9-50 ALT (test code = 2219) 30 U/L 5-50 LIPID PANEL WITH REFLEX DIRECT [id number] 01:12:48* Test Item Value Reference Range Interpretation Comme nts CHOLESTEROL (test code = 2210) 179 MG/DL <200 TRIGLYCERIDES (test code = 2232) 159 MG/DL <150 H HDL CHOLESTEROL (test code = 2220) 47 MG/DL >39 CALC LDL CHOL (test code = 2237) 105 MG/DL <100 H NOTE: CALCULATED LDL IS BASED ON PHONG-HEADLEY METHOD WHICHINCLUDES ADJUSTABLE TRIGLYCERIDE:VLDL CHOLESTEROL RATIO.THIS FACTOR VARIES BY MEASURED TRIGLYCERIDE AND NON-HDLCHOLESTEROL CONCENTRATIONS WITH INCREASED CALCULATED LDL SEENIN HIGHER TRIGLYCERIDE OR LOWER NON-HDL SPECIMENS. FOR MOREINFORMATION, SEE CLIENT ANNOUNCEMENT AT [email or web address] RISK RATIO LDL/HDL (test code = 2238) 2.23 RATIO <3.55 COMPREHENSIVE METABOLIC [id number] 00:00:00* Test Item Value Reference Range Interpretation Comme nts GLUCOSE (test code = 2217) 110 MG/DL BUN (test code = 2208) 16 MG/DL CREATININE (test code = 2214) 1.16 MG/DL eGFR (2020 CKD-EPI) (test co de = 17833) 73 ML/MIN/1.73 CALC BUN/CREAT (test code = 2235) 14 RATIO SODIUM (test code = 2231) 140 MEQ/L POTASSIUM (test code = 2228) 4.5 MEQ/L CHLORIDE (test code = 2215) 101 MEQ/L CARBON DIOXIDE (test code = 2206) 24 MEQ/L CALCIUM (test code = 2209) 9.7 MG/DL PROTEIN, TOTAL (test code = 2229) 7.5 G/DL ALBUMIN (test code = 2201) 5.0 G/DL CALC GLOBULIN (test code = 2240) 2.5 G/DL CALC A/G RATIO (test code = 2234) 2.0 RATIO BILIRUBIN, TOTAL (test code = 2207) 0.3 MG/DL ALKALINE PHOSPHATASE (test code = 2204) 78 U/L AST (test code = 2218) 18 U/L ALT (test code = 2219) 30 U/L Harjindre Gonzalez, [id number] 00:00:00* Test Item Value Reference Range Interpretation Comme nts CK, TOTAL (test code = 2013) 163 U/L Harjinder SimLIPID PANEL WITH REFLEX DIRECT [id number] 00:00:00* Test Item Value Reference Range Interpretation Comme nts CHOLESTEROL (test code = 2210) 179 MG/DL TRIGLYCERIDES (test code = 2232) 159 MG/DL HDL CHOLESTEROL (test code = 2220) 47 MG/DL CALC LDL CHOL (test code = 2237) 105 MG/DL RISK RATIO LDL/HDL (test cod e = 2238) 2.23 RATIO Harjinder [id number] 00:00:00* Test Item Value Reference Range Interpretation Comme nts MAGNESIUM (test code = 2226) 2.3 MG/DL Harjinder SimCOMPREHENSIVE METABOLIC [id number] 00:00:00* Test Item Value Reference Range Interpretation Comme nts GLUCOSE (test code = 2217) 110 MG/DL BUN (test code = 2208) 16 MG/DL CREATININE (test code = 2214) 1.16 MG/DL eGFR (2020 CKD-EPI) (test co de = 92207) 73 ML/MIN/1.73 CALC BUN/CREAT (test code = 2235) 14 RATIO SODIUM (test code = 2231) 140 MEQ/L POTASSIUM (test code = 2228) 4.5 MEQ/L CHLORIDE (test code = 2215) 101 MEQ/L CARBON DIOXIDE (test code = 2206) 24 MEQ/L CALCIUM (test code = 2209) 9.7 MG/DL PROTEIN, TOTAL (test code = 2229) 7.5 G/DL ALBUMIN (test code = 2201) 5.0 G/DL CALC GLOBULIN (test code = 2240) 2.5 G/DL CALC A/G RATIO (test code = 2234) 2.0 RATIO BILIRUBIN, TOTAL (test code = 2207) 0.3 MG/DL ALKALINE PHOSPHATASE (test code = 2204) 78 U/L AST (test code = 2218) 18 U/L ALT (test code = 2219) 30 U/L Harjinder Gonzalez, [id number] 00:00:00* Test Item Value Reference Range Interpretation Comme nts CK, TOTAL (test code = 2013) 163 U/L Harjinder SimLIPID PANEL WITH REFLEX DIRECT [id number] 00:00:00* Test Item Value Reference Range Interpretation Comme nts CHOLESTEROL (test code = 2210) 179 MG/DL TRIGLYCERIDES (test code = 2232) 159 MG/DL HDL CHOLESTEROL (test code = 2220) 47 MG/DL CALC LDL CHOL (test code = 2237) 105 MG/DL RISK RATIO LDL/HDL (test cod e = 2238) 2.23 RATIO Harjinder [id number] 00:00:00* Test Item Value Reference Range Interpretation Comme nts MAGNESIUM (test code = 2226) 2.3 MG/DL Harjinder SimCOMPREHENSIVE METABOLIC [id number] 00:00:00* Test Item Value Reference Range Interpretation Comme nts GLUCOSE (test code = 2217) 110 MG/DL BUN (test code = 2208) 16 MG/DL CREATININE (test code = 2214) 1.16 MG/DL eGFR (2020 CKD-EPI) (test co de = 97894) 73 ML/MIN/1.73 CALC BUN/CREAT (test code = 2235) 14 RATIO SODIUM (test code = 2231) 140 MEQ/L POTASSIUM (test code = 2228) 4.5 MEQ/L CHLORIDE (test code = 2215) 101 MEQ/L CARBON DIOXIDE (test code = 2206) 24 MEQ/L CALCIUM (test code = 2209) 9.7 MG/DL PROTEIN, TOTAL (test code = 2229) 7.5 G/DL ALBUMIN (test code = 2201) 5.0 G/DL CALC GLOBULIN (test code = 2240) 2.5 G/DL CALC A/G RATIO (test code = 2234) 2.0 RATIO BILIRUBIN, TOTAL (test code = 2207) 0.3 MG/DL ALKALINE PHOSPHATASE (test code = 2204) 78 U/L AST (test code = 2218) 18 U/L ALT (test code = 2219) 30 U/L Harjinder SimCK, [id number] 00:00:00* Test Item Value Reference Range Interpretation Comme nts CK, TOTAL (test code = 2013) 163 U/L Harjinder SimLIPID PANEL WITH REFLEX DIRECT [id number] 00:00:00* Test Item Value Reference Range Interpretation Comme nts CHOLESTEROL (test code = 2210) 179 MG/DL TRIGLYCERIDES (test code = 2232) 159 MG/DL HDL CHOLESTEROL (test code = 2220) 47 MG/DL CALC LDL CHOL (test code = 2237) 105 MG/DL RISK RATIO LDL/HDL (test cod e = 2238) 2.23 RATIO Harjinder [id number] 00:00:00* Test Item Value Reference Range Interpretation Comme nts MAGNESIUM (test code = 2226) 2.3 MG/DL Harjinder SimCOMPREHENSIVE METABOLIC [id number] 00:00:00* Test Item Value Reference Range Interpretation Comme nts GLUCOSE (test code = 2217) 110 MG/DL BUN (test code = 2208) 16 MG/DL CREATININE (test code = 2214) 1.16 MG/DL eGFR (2020 CKD-EPI) (test co de = 44144) 73 ML/MIN/1.73 CALC BUN/CREAT (test code = 2235) 14 RATIO SODIUM (test code = 2231) 140 MEQ/L POTASSIUM (test code = 2228) 4.5 MEQ/L CHLORIDE (test code = 2215) 101 MEQ/L CARBON DIOXIDE (test code = 2206) 24 MEQ/L CALCIUM (test code = 2209) 9.7 MG/DL PROTEIN, TOTAL (test code = 2229) 7.5 G/DL ALBUMIN (test code = 2201) 5.0 G/DL CALC GLOBULIN (test code = 2240) 2.5 G/DL CALC A/G RATIO (test code = 2234) 2.0 RATIO BILIRUBIN, TOTAL (test code = 2207) 0.3 MG/DL ALKALINE PHOSPHATASE (test code = 2204) 78 U/L AST (test code = 2218) 18 U/L ALT (test code = 2219) 30 U/L Harjinder Miguel AustinCK, [id number] 00:00:00* Test Item Value Reference Range Interpretation Comme nts CK, TOTAL (test code = 2013) 163 U/L Harjinder SimLIPID PANEL WITH REFLEX DIRECT [id number] 00:00:00* Test Item Value Reference Range Interpretation Comme nts CHOLESTEROL (test code = 2210) 179 MG/DL TRIGLYCERIDES (test code = 2232) 159 MG/DL HDL CHOLESTEROL (test code = 2220) 47 MG/DL CALC LDL CHOL (test code = 2237) 105 MG/DL RISK RATIO LDL/HDL (test cod e = 2238) 2.23 RATIO Harjinder [id number] 00:00:00* Test Item Value Reference Range Interpretation Comme nts MAGNESIUM (test code = 2226) 2.3 MG/DL Harjinder SimCOMPREHENSIVE METABOLIC [id number] 00:00:00* Test Item Value Reference Range Interpretation Comme nts GLUCOSE (test code = 2217) 110 MG/DL BUN (test code = 2208) 16 MG/DL CREATININE (test code = 2214) 1.16 MG/DL eGFR (2020 CKD-EPI) (test co de = 00930) 73 ML/MIN/1.73 CALC BUN/CREAT (test code = 2235) 14 RATIO SODIUM (test code = 2231) 140 MEQ/L POTASSIUM (test code = 2228) 4.5 MEQ/L CHLORIDE (test code = 2215) 101 MEQ/L CARBON DIOXIDE (test code = 2206) 24 MEQ/L CALCIUM (test code = 2209) 9.7 MG/DL PROTEIN, TOTAL (test code = 2229) 7.5 G/DL ALBUMIN (test code = 2201) 5.0 G/DL CALC GLOBULIN (test code = 2240) 2.5 G/DL CALC A/G RATIO (test code = 2234) 2.0 RATIO BILIRUBIN, TOTAL (test code = 2207) 0.3 MG/DL ALKALINE PHOSPHATASE (test code = 2204) 78 U/L AST (test code = 2218) 18 U/L ALT (test code = 2219) 30 U/L Harjinder SimCK, [id number] 00:00:00* Test Item Value Reference Range Interpretation Comme nts CK, TOTAL (test code = 2013) 163 U/L Harjinder SimLIPID PANEL WITH REFLEX DIRECT [id number] 00:00:00* Test Item Value Reference Range Interpretation Comme nts CHOLESTEROL (test code = 2210) 179 MG/DL TRIGLYCERIDES (test code = 2232) 159 MG/DL HDL CHOLESTEROL (test code = 2220) 47 MG/DL CALC LDL CHOL (test code = 2237) 105 MG/DL RISK RATIO LDL/HDL (test cod e = 2238) 2.23 RATIO Harjinder [id number] 00:00:00* Test Item Value Reference Range Interpretation Comme nts MAGNESIUM (test code = 2226) 2.3 MG/DL Harjinder SimCOMPREHENSIVE METABOLIC [id number] 00:00:00* Test Item Value Reference Range Interpretation Comme nts GLUCOSE (test code = 2217) 110 MG/DL BUN (test code = 2208) 16 MG/DL CREATININE (test code = 2214) 1.16 MG/DL eGFR (2020 CKD-EPI) (test co de = 87262) 73 ML/MIN/1.73 CALC BUN/CREAT (test code = 2235) 14 RATIO SODIUM (test code = 2231) 140 MEQ/L POTASSIUM (test code = 2228) 4.5 MEQ/L CHLORIDE (test code = 2215) 101 MEQ/L CARBON DIOXIDE (test code = 2206) 24 MEQ/L CALCIUM (test code = 2209) 9.7 MG/DL PROTEIN, TOTAL (test code = 2229) 7.5 G/DL ALBUMIN (test code = 2201) 5.0 G/DL CALC GLOBULIN (test code = 2240) 2.5 G/DL CALC A/G RATIO (test code = 2234) 2.0 RATIO BILIRUBIN, TOTAL (test code = 2207) 0.3 MG/DL ALKALINE PHOSPHATASE (test code = 2204) 78 U/L AST (test code = 2218) 18 U/L ALT (test code = 2219) 30 U/L Harjinder SimCK, [id number] 00:00:00* Test Item Value Reference Range Interpretation Comme nts CK, TOTAL (test code = 2013) 163 U/L Harjinder SimLIPID PANEL WITH REFLEX DIRECT [id number] 00:00:00* Test Item Value Reference Range Interpretation Comme nts CHOLESTEROL (test code = 2210) 179 MG/DL TRIGLYCERIDES (test code = 2232) 159 MG/DL HDL CHOLESTEROL (test code = 2220) 47 MG/DL CALC LDL CHOL (test code = 2237) 105 MG/DL RISK RATIO LDL/HDL (test cod e = 2238) 2.23 RATIO Harjindre [id number] 00:00:00* Test Item Value Reference Range Interpretation Comme nts MAGNESIUM (test code = 2226) 2.3 MG/DL Harjinder SimCOMPREHENSIVE METABOLIC [id number] 00:00:00* Test Item Value Reference Range Interpretation Comme nts GLUCOSE (test code = 2217) 110 MG/DL BUN (test code = 2208) 16 MG/DL CREATININE (test code = 2214) 1.16 MG/DL eGFR (2020 CKD-EPI) (test co de = 10527) 73 ML/MIN/1.73 CALC BUN/CREAT (test code = 2235) 14 RATIO SODIUM (test code = 2231) 140 MEQ/L POTASSIUM (test code = 2228) 4.5 MEQ/L CHLORIDE (test code = 2215) 101 MEQ/L CARBON DIOXIDE (test code = 2206) 24 MEQ/L CALCIUM (test code = 2209) 9.7 MG/DL PROTEIN, TOTAL (test code = 2229) 7.5 G/DL ALBUMIN (test code = 2201) 5.0 G/DL CALC GLOBULIN (test code = 2240) 2.5 G/DL CALC A/G RATIO (test code = 2234) 2.0 RATIO BILIRUBIN, TOTAL (test code = 2207) 0.3 MG/DL ALKALINE PHOSPHATASE (test code = 2204) 78 U/L AST (test code = 2218) 18 U/L ALT (test code = 2219) 30 U/L Harjinder SimCK, [id number] 00:00:00* Test Item Value Reference Range Interpretation Comme nts CK, TOTAL (test code = 2013) 163 U/L Harjinder SimLIPID PANEL WITH REFLEX DIRECT [id number] 00:00:00* Test Item Value Reference Range Interpretation Comme nts CHOLESTEROL (test code = 2210) 179 MG/DL TRIGLYCERIDES (test code = 2232) 159 MG/DL HDL CHOLESTEROL (test code = 2220) 47 MG/DL CALC LDL CHOL (test code = 2237) 105 MG/DL RISK RATIO LDL/HDL (test cod e = 2238) 2.23 RATIO Harjinder [id number] 00:00:00* Test Item Value Reference Range Interpretation Comme nts MAGNESIUM (test code = 2226) 2.3 MG/DL Harjinder F AustinCT/NG, NAAT, [id number] 19:40:47* Test Item Value Reference Range Interpretation Comme nts CHLAMYDIA, NAAT, URINE (test code = 44042) NEGATIVE NEGATIVE Testing is perfo rmed with Alexi GAGAN 6800/8800 systems usingreal-time polymerase chain reaction (PCR) method. A negative result does not exclude low level infection, specimensampling error, or collection error. GONORRHEA, NAAT, URINE (test code = 19308) NEGATIVE NEGATIVE Testing is perfo rmed with Alexi GAGAN 6800/8800 systems usingreal-time polymerase chain reaction (PCR) method. A negative result does not exclude low level infection, specimensampling error, or collection error. UNLESS OTHERWISE INDICATED, ALL TESTING PERFORMED AT [facility] [address] [place] [address] ELECTRICAL UNIT REBUILDER: LIGIA PRABHAKAR M.D. [place] NUMBER [id number] [facility] [place] [place]. [id number] CT/NG, TMA, [id number] 00:00:00* Test Item Value Reference Range Interpretation Comme nts CHLAMYDIA, NAAT, URINE (test code = 57028) NEGATIVE GONORRHEA, NAAT, URINE (test code = 44303) NEGATIVE Harjinder F AustinCT/NG, TMA, [id number] 00:00:00* Test Item Value Reference Range Interpretation Comme nts CHLAMYDIA, NAAT, URINE (test code = 04593) NEGATIVE GONORRHEA, NAAT, URINE (test code = 80419) NEGATIVE Harjinder F AustinCT/NG, TMA, [id number] 00:00:00* Test Item Value Reference Range Interpretation Comme nts CHLAMYDIA, NAAT, URINE (test code = 63867) NEGATIVE GONORRHEA, NAAT, URINE (test code = 96748) NEGATIVE Harjinder F AustinCT/NG, TMA, [id number] 00:00:00* Test Item Value Reference Range Interpretation Comme nts CHLAMYDIA, NAAT, URINE (test code = 21592) NEGATIVE GONORRHEA, NAAT, URINE (test code = 16023) NEGATIVE Harjinder F AustinCT/NG, TMA, [id number] 00:00:00* Test Item Value Reference Range Interpretation Comme nts CHLAMYDIA, NAAT, URINE (test code = 17010) NEGATIVE GONORRHEA, NAAT, URINE (test code = 25388) NEGATIVE Harjinder F AustinCT/NG, TMA, [id number] 00:00:00* Test Item Value Reference Range Interpretation Comme nts CHLAMYDIA, NAAT, URINE (test code = 11598) NEGATIVE GONORRHEA, NAAT, URINE (test code = 59398) NEGATIVE Harjinder F AustinCT/NG, TMA, [id number] 00:00:00* Test Item Value Reference Range Interpretation Comme nts CHLAMYDIA, NAAT, URINE (test code = 16247) NEGATIVE GONORRHEA, NAAT, URINE (test code = 17223) NEGATIVE Harjinder F AustinCT/NG, NAAT, [id number] 09:35:15* Test Item Value Reference Range Interpretation Comme nts CHLAMYDIA, NAAT, URINE (test code = 99153) TEST NOT PERFORMED NEGATIVE Unable to per form testing due to a laboratory error.Charges adjusted as applicable. GONORRHEA, NAAT, URINE (test code = 52398) TEST NOT PERFORMED NEGATIVE CT/NG, TMA, [id number] 00:00:00* Test Item Value Reference Range Interpretation Comme nts CHLAMYDIA, NAAT, URINE (test code = 55957) TEST NOT PERFORMED GONORRHEA, NAAT, URINE (test code = 41364) TEST NOT PERFORMED Harjinder F AustinCT/NG, TMA, [id number] 00:00:00* Test Item Value Reference Range Interpretation Comme nts CHLAMYDIA, NAAT, URINE (test code = 67239) TEST NOT PERFORMED GONORRHEA, NAAT, URINE (test code = 29873) TEST NOT PERFORMED Harjinder F AustinCT/NG, TMA, [id number] 00:00:00* Test Item Value Reference Range Interpretation Comme nts CHLAMYDIA, NAAT, URINE (test code = 39889) TEST NOT PERFORMED GONORRHEA, NAAT, URINE (test code = 16041) TEST NOT PERFORMED Harjinder F AustinCT/NG, TMA, [id number] 00:00:00* Test Item Value Reference Range Interpretation Comme nts CHLAMYDIA, NAAT, URINE (test code = 96393) TEST NOT PERFORMED GONORRHEA, NAAT, URINE (test code = 94529) TEST NOT PERFORMED Harjinder F AustinCT/NG, TMA, [id number] 00:00:00* Test Item Value Reference Range Interpretation Comme nts CHLAMYDIA, NAAT, URINE (test code = 55847) TEST NOT PERFORMED GONORRHEA, NAAT, URINE (test code = 72653) TEST NOT PERFORMED Harjinder F AustinCT/NG, TMA, [id number] 00:00:00* Test Item Value Reference Range Interpretation Comme nts CHLAMYDIA, NAAT, URINE (test code = 29218) TEST NOT PERFORMED GONORRHEA, NAAT, URINE (test code = 33678) TEST NOT PERFORMED Harjinder F AustinCT/NG, TMA, [id number] 00:00:00* Test Item Value Reference Range Interpretation Comme nts CHLAMYDIA, NAAT, URINE (test code = 62151) TEST NOT PERFORMED GONORRHEA, NAAT, URINE (test code = 00853) TEST NOT PERFORMED Harjinder F AustinPSA, [id number] 05:58:57* Test Item Value Reference Range Interpretation Comme nts PSA, TOTAL (test code = 2606) 1.70 NG/ML See_Comment NOTE: Methodolog y is Alexi Gagan Electrochemiluminescence Immunoassay traceable to WHO reference standard 96/760. [Automated message] The system which generated this result transmitted reference range: <=4.00. The reference range was not used to interpret this result as normal/abnormal. COMPREHENSIVE METABOLIC [id number] 05:55:18* Test Item Value Reference Range Interpretation Comme nts GLUCOSE (test code = 7) 81 MG/DL 70-99 BUN (test code = 2207) 11 MG/DL 6-20 CREATININE (test code = 2214) 1.00 MG/DL 0.80-1.40 eGFR (2020 CKD-EPI) (test code = 93745) 87 ML/MIN/1.73 >60 CALC BUN/CREAT (test code = 5) 11 RATIO 6-28 SODIUM (test code = 223) 137 MEQ/L 133-146 POTASSIUM (test code = 2227) 4.1 MEQ/L 3.5-5.4 CHLORIDE (test code = 5) 98 MEQ/L 95-107 CARBON DIOXIDE (test code = 6) 26 MEQ/L 19-31 CALCIUM (test code = 2209) 9.9 MG/DL 8.5-10.5 PROTEIN, TOTAL (test code [...] 76 U/L 40-123 AST (test code = 8) 15 U/L 9-50 ALT (test code = 2218) 25 U/L 5-50 LIPID [id number] 05:55:18* Test Item Value Reference Range Interpretation [...] SPECIMENS. FOR MOREINFORMATION, SEE CLIENT ANNOUNCEMENT AT [email or web address] RATIO LDL/HDL (test code = 2238) 3.00 RATIO <3.55 HEMOGLOBIN [id number] 04:29:50* Test Item Value Reference Range Interpretation Comme [facility] HEMOGLOBIN A1c (test code = 94805) 5.6 % 4.2-5.6 HIV 1/2 4TH GEN, RFLX [id number] 03:39:31* Test Item Value Reference Range Interpretation Comme [facility] HIV 1/2 4TH GEN, RFLX CONF (test code = 3514) NON-REACTIVE NON-REACTIVE UNLESS OTHERWISE INDICATED, ALL TESTING PERFORMED AT [facility] [address] [place] [id number] [employer] RE[employer]: LIGIA PRABHAKAR M.D. [place] NUMBER [id number] [facility] [place]. [id number] HEPATITIS PANEL, [id number] 03:39:31* Test Item Value Reference Range Interpretation Comme nts HEPATITIS A IgM (test code = 32056) NON-REACTIVE NON-REACTIVE HEPATITIS B CORE IgM (test code = 4644) NON-REACTIVE NON-REACTIVE HEPATITIS B SURF AG (test code = 2739) NON-REACTIVE NON-REACTIVE HEPATITIS C ANTIBODY (test code = 4675) NON-REACTIVE NON-REACTIVE INTERPRETATION HEPATITIS A: (test code = 2552) (NOTE) Hepatitis A serology shows no evidence of acute hepatitis A. INTERPRETATION HEPATITIS B: (test code = 07019) (NOTE) Hepatitis B serology shows no evidence of acute hepatitis B andno indication of exposure to hepatitis B virus in the previous nivia eight months. INTERPRETATION HEPATITIS C: (test code = 46266) (NOTE) Hepatitis C serology shows no evidence of exposure to hepatitisC virus at this time. It can take up to 12 months after exposure tothe hepatitis C virus for antibodies to become detectable in the blood in certain patients. RPR REFLEX TO T. PALLIDUM - [id number] 03:12:08* Test Item Value Reference Range Interpretation Comme nts RPR (test code = 17345) NON-REACTIVE NON-REACTIVE RPR TITER (test code = 3500) NOT INDIC. TITER NOT INDIC. CBC W/AUTO DIFF WITH [id number] 02:24:38* Test Item Value Reference Range Interpretation [...] 0.00-0.10 ABS NUCLEATED RBCS (test code = 17290) 0.00 K/UL 0.00-0.11 HIV 1/2 4TH GEN, RFLX [id number] 00:00:00* Test Item Value Reference Range Interpretation Comme nts HIV 1/2 4TH GEN, RFLX CONF ( test code = 3514) NON-REACTIVE Harjinder SimRPR REFLEX TO T. PALLIDUM - [id number] 00:00:00* Test Item Value Reference Range Interpretation Comme nts RPR (test code = 90229) NON-REACTIVE RPR TITER (test code = 3500) NOT INDIC. TITER Harjinder SimACUTE HEPATITIS [id number] 00:00:00* Test Item Value Reference Range Interpretation Comme nts HEPATITIS A IgM (test code = 84714) NON-REACTIVE HEPATITIS B CORE IgM (test c ode = 4644) NON-REACTIVE HEPATITIS B SURF AG (test co de = 0479) NON-REACTIVE HEPATITIS C ANTIBODY (test c ode = 4641) NON-REACTIVE INTERPRETATION HEPATITIS A: (test code = 2552) (NOTE) INTERPRETATION HEPATITIS B: (test code = 66615) (NOTE) INTERPRETATION HEPATITIS C: (test code = 99734) (NOTE) Harjinder SimPSA, [id number] 00:00:00* Test Item Value Reference Range Interpretation Comme nts PSA, TOTAL (test code = 2606) 1.70 NG/ML Harjinder SimCBC W/AUTO [id number] 00:00:00* Test Item Value Reference Range Interpretation Comme nts WBC (test code = 1001) 8.1 K/UL RBC (test code = 1002) 5.42 M/UL HEMOGLOBIN (test code = 1003) 15.7 G/DL HEMATOCRIT (test code = 1004) 46.1 % MCV (test code = 1005) 85.1 fL MCH (test code = 1006) 29.0 PG MCHC (test code = 1007) 34.1 G/DL RDW (test code = 1038) 12.6 % NEUTROPHILS (test code = 1008) 71.1 % LYMPHOCYTES (test code = 1010) 19.6 % MONOCYTES (test code = 1011) 7.7 % EOSINOPHILS (test code = 1012) 0.9 % BASOPHILS (test code = 1013) 0.5 % IMMATURE GRANULOCYTES (test code = 1036) 0.2 % NUCLEATED RBCS (test code = 1065) 0.0 /100WBC'S PLATELET COUNT (test code = 1015) 330 K/UL ABSOLUTE NEUTROPHILS (test c ode = 1066) 5.74 K/UL ABSOLUTE LYMPHOCYTES (test c ode = 1067) 1.58 K/UL ABSOLUTE MONOCYTES (test cod e = 1068) 0.62 K/UL ABSOLUTE EOSINOPHILS (test c ode = 1040) 0.07 K/UL ABSOLUTE BASOPHILS (test cod e = 1069) 0.04 K/UL ABS IMMATURE GRANULOCYTES (t est code = 1020) 0.02 K/UL ABS NUCLEATED RBCS (test cod e = 43906) 0.00 K/UL Harjinder SimCOMPREHENSIVE METABOLIC [id number] 00:00:00* Test Item Value Reference Range Interpretation Comme nts GLUCOSE (test code = 2217) 81 MG/DL BUN (test code = 2208) 11 MG/DL CREATININE (test code = 2214) 1.00 MG/DL eGFR (2020 CKD-EPI) (test co de = 50167) 87 ML/MIN/1.73 CALC BUN/CREAT (test code = 2235) 11 RATIO SODIUM (test code = 2231) 137 MEQ/L POTASSIUM (test code = 2228) 4.1 MEQ/L CHLORIDE (test code = 2215) 98 MEQ/L CARBON DIOXIDE (test code = 2206) 26 MEQ/L CALCIUM (test code = 2209) 9.9 MG/DL PROTEIN, TOTAL (test code = 2229) 7.7 G/DL ALBUMIN (test code = 2201) 4.8 G/DL CALC GLOBULIN (test code = 2240) 2.9 G/DL CALC A/G RATIO (test code = 2234) 1.7 RATIO BILIRUBIN, TOTAL (test code = 2207) 0.3 MG/DL ALKALINE PHOSPHATASE (test code = 2204) 76 U/L AST (test code = 2218) 15 U/L ALT (test code = 2219) 25 U/L Harjinder SimLIPID [id number] 00:00:00* Test Item Value Reference Range Interpretation Comme nts CHOLESTEROL (test code = 2210) 236 MG/DL TRIGLYCERIDES (test code = 2232) 263 MG/DL HDL CHOLESTEROL (test code = 2220) 49 MG/DL CALC LDL CHOL (test code = 2237) 147 MG/DL RISK RATIO LDL/HDL (test cod e = 2238) 3.00 RATIO Harjinder SimHEMOGLOBIN [id number] 00:00:00* Test Item Value Reference Range Interpretation Comme nts HEMOGLOBIN A1c (test code = 93785) 5.6 % Harjinder Miguel RoneyHIV 1/2 4TH GEN, RFLX [id number] 00:00:00* Test Item Value Reference Range Interpretation Comme nts HIV 1/2 4TH GEN, RFLX CONF ( test code = 3514) NON-REACTIVE Harjinder SimRPR REFLEX TO T. PALLIDUM - [id number] 00:00:00* Test Item Value Reference Range Interpretation Comme nts RPR (test code = 05191) NON-REACTIVE RPR TITER (test code = 3500) NOT INDIC. TITER Harjinder Miguel RoenyACUTE HEPATITIS [id number] 00:00:00* Test Item Value Reference Range Interpretation Comme nts HEPATITIS A IgM (test code = 07751) NON-REACTIVE HEPATITIS B CORE IgM (test c ode = 4644) NON-REACTIVE HEPATITIS B SURF AG (test co de = 9169) NON-REACTIVE HEPATITIS C ANTIBODY (test c ode =

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
[2024-01-04 20:01] VITALS: BP 158/81; TEMP 98; O2SAT 97
== END 2024-01-04 17:32 | disposition home or self-care (01) ==
LOC: ER 15:33
DX: M25.512 Pain in left shoulder (principal); V49.49XA Driver injured in collision with other motor vehicles in traffic accident, initial encounter; Z87.820 Personal history of traumatic brain injury
CPT/HCPCS: 71045; 99282